=== PATIENT | female | born 2000 | race African-American/Black ===

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

== ENCOUNTER 2022-04-19 16:58 | Emergency (ER) | payer BC, MEDICAID ==
[~2022-04-19] VITALS: Ht 165.1 cm; Wt 119.1 kg
[~2022-04-19 16:58] MED LIST changes: +ALBU8.5H INH; +BENZ0.5T23; +BENZ2TAB5 PO; +BUPR-70; +CHLO25TA38 PO; +CHLOR50TA PO; +D200CAP3 PO; +DIPH50TA4 PO; +DIVA500T94; +FERR325T3 PO; +GUAN1TAB19 PO; +HALO0.5H PO; +HALO0.5T; +HALO5TAB33 PO; +MED NOTE; +METF500T13 PO; +MONT10TA97 PO; +NALT50TA4 PO; +OMEG100011 PO; +PANT40TA29 PO; +PROP10TA56; -PROP1TAB29 PO; +PROP20TA72 PO; +RISP-7; +SENN-111 PO; +TRAZ-252; +TRAZ1TAB10 PO; +WELL100T2; +ZIPR40CA11 PO; +ZOLO50TA PO
[2022-04-19] MEDS ORDERED: AMOX875T2 PO (21:49)
[2022-04-19] MEDS ORDERED: AUGMENTIN 875 MG TAB PO ONE (21:50)
[2022-04-19] MEDS ORDERED: BACITRACIN OINTMENT 30GM TUBE TOP PRN (21:50)
[2022-04-19 21:58] VITALS: BP 130/68
== END 2022-04-19 22:02 | disposition home or self-care (01) ==
LOC: M ED 16:58
DX: S41.151A Open bite of right upper arm, initial encounter (principal); S83.92XA Sprain of unspecified site of left knee, initial encounter; W54.0XXA Bitten by dog, initial encounter; Y92.018 Other place in single-family (private) house as the place of occurrence of the external cause; J45.909 Unspecified asthma, uncomplicated; E11.9 Type 2 diabetes mellitus without complications; F33.9 Major depressive disorder, recurrent, unspecified; F41.9 Anxiety disorder, unspecified; F90.9 Attention-deficit hyperactivity disorder, unspecified type; Z79.899 Other long term (current) drug therapy; Z79.84 Long term (current) use of oral hypoglycemic drugs; F17.200 Nicotine dependence, unspecified, uncomplicated

== ENCOUNTER 2022-05-12 19:45 | Emergency (ER) | payer BC, MEDICAID ==
[~2022-05-12] VITALS: Ht 167.6 cm; Wt 118.2 kg
[~2022-05-12 19:45] MED LIST changes: +AMOX875T2 PO
[2022-05-13 00:43] VITALS: BP 130/64
== END 2022-05-13 02:09 | disposition home or self-care (01) ==
LOC: M ED 19:45
DX: S89.92XA Unspecified injury of left lower leg, initial encounter (principal); W18.39XA Other fall on same level, initial encounter; Y92.018 Other place in single-family (private) house as the place of occurrence of the external cause; Z79.899 Other long term (current) drug therapy; Z79.84 Long term (current) use of oral hypoglycemic drugs

== ENCOUNTER 2022-05-15 00:56 | Emergency (ER) | payer BC, MEDICAID ==
[2022-05-15 01:35] LABS: HEMATOCRIT 37.4 % (36.0-47.0); MEAN CORPUSCULAR HEMOGLOBIN 28.1 pg (27.0-33.0); MEAN CORPUSCULAR HGB CONC 32.1 g/dl (32.0-36.5); MEAN CORPUSCULAR VOLUME 87.6 fl (80.0-96.0); PLATELET COUNT, AUTOMATED 389 10^3/uL (150-450); RED BLOOD COUNT 4.27 10^6/uL (4.00-5.40); WHITE BLOOD COUNT 11.4 10^3/uL (4.0-10.0)
[2022-05-15 01:54] LABS: HCG, SERUM QUALITATIVE NEGATIVE (NEGATIVE)
[2022-05-15] MEDS ORDERED: HALOPERIDOL 5MG/ML VIAL (J1630 PER 1) IM ONE (02:00)
[2022-05-15] MEDS ORDERED: diphenhydrAMINE 50MG/ML VIAL (J1200) IM ONE (02:00)
[2022-05-15] MEDS ORDERED: MIDAZOLAM INJ 2MG/2ML VIAL (J2250 PER 1MG) IM ONE (02:00)
[2022-05-15 02:13] LABS: BLOOD UREA NITROGEN 7 MG/DL (7-18); CREATININE FOR GFR 0.72 MG/DL (0.55-1.30); GLUCOSE, FASTING 117 MG/DL (70-100)
[2022-05-15 02:14] LABS: ACETAMINOPHEN LEVEL < 2.0 UG/ML (10.0-30.0); ALBUMIN 3.5 GM/DL (3.2-5.2); ALT/SGPT 25 U/L (12-78); BILIRUBIN,DIRECT 0.2 MG/DL (0.0-0.2); BILIRUBIN,TOTAL 0.2 MG/DL (0.2-1.0); CALCIUM LEVEL 9.2 MG/DL (8.5-10.1); CARBON DIOXIDE LEVEL 27 MEQ/L (21-32); CHLORIDE LEVEL 108 MEQ/L (98-107); ETHYL ALCOHOL (ETHANOL) < 0.003 % (0.000-0.010); GLOMERULAR FILTRATION RATE > 60.0 (>60); POTASSIUM SERUM 3.7 MEQ/L (3.5-5.1); SALICYLATE LEVEL < 1.7 MG/DL (5.0-30.0); SODIUM LEVEL 141 MEQ/L (136-145); TOTAL PROTEIN 7.5 GM/DL (6.4-8.2)
[2022-05-15] MEDS ORDERED: NS 1,000 ML IV ONE (02:15)
[2022-05-15 02:27] LABS: RSV AMPLIFICATION NEGATIVE (NEGATIVE)
[2022-05-15 02:58] LABS: OSMOLALITY SERUM 289 MOSM/KG (275-295)
[2022-05-15 04:36] LABS: AMPHETAMINES LEVEL URINE NEGATIVE (NEGATIVE); BARBITURATES URINE NEGATIVE (NEGATIVE); BENZODIAZEPINES URINE POSITIVE (NEGATIVE); CANNABINOIDS URINE NEGATIVE (NEGATIVE); COCAINE METABOLITE URINE NEGATIVE (NEGATIVE); METHADONE URINE NEGATIVE (NEGATIVE); OPIATES URINE NEGATIVE (NEGATIVE); PHENCYCLIDINE URINE NEGATIVE (NEGATIVE)
[2022-05-15] MEDS ORDERED: LATU40TA2 PO (18:36)
[2022-05-15] MEDS ORDERED: SERT50TA29 PO (18:36)
[2022-05-15] MEDS ORDERED: HALO5TAB33 PO (18:36)
[2022-05-15] MEDS ORDERED: BENZ-52 PO (18:36)
[2022-05-15] MEDS ORDERED: DIVA500T94 PO (18:36)
[2022-05-15] MEDS ORDERED: LAMO25TA4 PO (18:36)
[2022-05-15] MEDS ORDERED: HOME MED LIST COMPLETE! XX SCH (18:40)
[2022-05-16] MEDS ORDERED: metFORMIN (GLUCOPHAGE) 500MG TAB PO SCH (08:00)
[2022-05-16] MEDS ORDERED: LURASIDONE HCL 40MG TAB (LATUDA) PO SCH (08:00)
[2022-05-16] MEDS ORDERED: OMEGA-3 1000MG CAPSULE PO SCH (09:00)
[2022-05-16] MEDS ORDERED: DIVALPROEX 500 MG TAB PO SCH (09:00)
[2022-05-16] MEDS ORDERED: FERROUS SULFATE 325MG TAB PO SCH (09:00)
[2022-05-16] MEDS ORDERED: BENZTROPINE 2 MG TAB PO SCH (09:00)
[2022-05-16] MEDS ORDERED: MONTELUKAST 10 MG TAB PO SCH (09:00)
[2022-05-16] MEDS ORDERED: PANTOPRAZOLE 40MG TAB (PROTONIX) PO SCH (09:00)
[2022-05-16] MEDS ORDERED: lamoTRIgine 25MG TAB PO SCH (09:00)
[2022-05-16] MEDS ORDERED: SERTRALINE 100 MG TAB PO SCH (09:00)
[2022-05-16 09:08] LABS: VALPROIC ACID (DEPAKOTE) < 3.0 UG/ML (50.0-100.0)
[2022-05-16 14:57] VITALS: BP 139/82
== END 2022-05-16 15:05 | disposition home or self-care (01) ==
LOC: M ED 00:56
DX: Z04.6 Encounter for general psychiatric examination, requested by authority (principal); F32.A Depression, unspecified; Z79.899 Other long term (current) drug therapy
CPT/HCPCS: 51701; 70450; 80048; 80076; 80143; 80164; 80307; 82077; 83930; 84443; 84703; 85027; 87631; 96372; 99285; J1200; J1630; J2250

== ENCOUNTER 2022-05-20 01:43 | Emergency (ER) | payer BC, MEDICAID ==
[~2022-05-20] VITALS: Ht 167.6 cm; Wt 113.6 kg
[~2022-05-20 01:43] MED LIST changes: +BENZ-52 PO; -CHLO25TA38 PO; +CHLO25TA88 PO; +DIVA500T94 PO; +LAMO25TA4 PO; +LATU40TA2 PO; +SERT50TA29 PO
[2022-05-20] MEDS ORDERED: IBUPROFEN 600MG TAB PO ONE (06:55)
[2022-05-20 07:00] VITALS: BP 126/68
== END 2022-05-20 07:32 | disposition home or self-care (01) ==
LOC: M ED 01:43 → EDBD 01:43 → M ED 07:32
DX: S00.83XA Contusion of other part of head, initial encounter (principal); Y04.8XXA Assault by other bodily force, initial encounter; Y07.9 Unspecified perpetrator of maltreatment and neglect; Y92.89 Other specified places as the place of occurrence of the external cause; F32.A Depression, unspecified; Z79.899 Other long term (current) drug therapy

== ENCOUNTER 2022-05-24 01:13 | Emergency (ER) | payer BC, MEDICAID ==
[~2022-05-24] VITALS: Ht 167.6 cm; Wt 119.1 kg
[2022-05-24 01:18] VITALS: BP 129/75
[2022-05-24] MEDS ORDERED: IBUPROFEN 600MG TAB PO ONE (06:50)
[2022-05-24] MEDS ORDERED: NALT50TA4 PO (23:20)
[2022-05-24] MEDS ORDERED: TRAZ-252 PO (23:20)
[2022-05-25] MEDS ORDERED: LATU40TA2 PO (00:50)
[2022-05-25] MEDS ORDERED: BENZ-52 PO (00:50)
[2022-05-25] MEDS ORDERED: SERT50TA29 PO (00:50)
[2022-05-25] MEDS ORDERED: LAMO25TA4 PO (00:50)
[2022-05-25] MEDS ORDERED: PANT40TA29 PO (00:53)
[2022-05-25] MEDS ORDERED: DIVA500T94 PO (00:53)
[2022-05-25] MEDS ORDERED: med rec comment (00:53)
== END 2022-05-24 07:06 | disposition home or self-care (01) ==
LOC: M ED 01:13 → EDBD 01:13 → M ED 07:06
DX: S93.402A Sprain of unspecified ligament of left ankle, initial encounter (principal); X50.0XXA Overexertion from strenuous movement or load, initial encounter; Y92.009 Unspecified place in unspecified non-institutional (private) residence as the place of occurrence of the external cause; J45.909 Unspecified asthma, uncomplicated; Z79.84 Long term (current) use of oral hypoglycemic drugs; Z79.899 Other long term (current) drug therapy

== ENCOUNTER 2022-05-24 22:29 | Inpatient (IN) | payer BC, MEDICAID ==
[~2022-05-24] VITALS: Ht 177.8 cm; Wt 121.8 kg
[2022-05-24] MEDS ORDERED: TRAZ-252 PO (23:20)
[2022-05-24] MEDS ORDERED: NALT50TA4 PO (23:20)
[2022-05-24 23:35] LABS: HEMATOCRIT 38.5 % (36.0-47.0); HEMOGLOBIN 12.4 g/dl (12.0-15.5); MEAN CORPUSCULAR HEMOGLOBIN 27.7 pg (27.0-33.0); MEAN CORPUSCULAR HGB CONC 32.2 g/dl (32.0-36.5); MEAN CORPUSCULAR VOLUME 86.1 fl (80.0-96.0); PLATELET COUNT, AUTOMATED 433 10^3/uL (150-450); RED BLOOD COUNT 4.47 10^6/uL (4.00-5.40); WHITE BLOOD COUNT 9.4 10^3/uL (4.0-10.0)
[2022-05-25 00:19] LABS: RSV AMPLIFICATION NEGATIVE (NEGATIVE)
[2022-05-25 00:25] LABS: AMPHETAMINES LEVEL URINE NEGATIVE (NEGATIVE); BARBITURATES URINE NEGATIVE (NEGATIVE); BENZODIAZEPINES URINE POSITIVE (NEGATIVE); CANNABINOIDS URINE POSITIVE (NEGATIVE); COCAINE METABOLITE URINE NEGATIVE (NEGATIVE); METHADONE URINE NEGATIVE (NEGATIVE); OPIATES URINE NEGATIVE (NEGATIVE); PHENCYCLIDINE URINE NEGATIVE (NEGATIVE)
[2022-05-25 00:28] LABS: HCG, SERUM QUALITATIVE NEGATIVE (NEGATIVE)
[2022-05-25 00:29] LABS: ACETAMINOPHEN LEVEL < 2.0 UG/ML (10.0-30.0); ALBUMIN 3.6 GM/DL (3.2-5.2); ALT/SGPT 23 U/L (12-78); BILIRUBIN,DIRECT < 0.1 MG/DL (0.0-0.2); BILIRUBIN,TOTAL 0.1 MG/DL (0.2-1.0); BLOOD UREA NITROGEN 13 MG/DL (7-18); CARBON DIOXIDE LEVEL 26 MEQ/L (21-32); CHLORIDE LEVEL 110 MEQ/L (98-107); CREATININE FOR GFR 0.95 MG/DL (0.55-1.30); ETHYL ALCOHOL (ETHANOL) < 0.003 % (0.000-0.010); GLOMERULAR FILTRATION RATE > 60.0 (>60); GLUCOSE, FASTING 99 MG/DL (70-100); POTASSIUM SERUM 4.1 MEQ/L (3.5-5.1); SALICYLATE LEVEL < 1.7 MG/DL (5.0-30.0); SODIUM LEVEL 140 MEQ/L (136-145); TOTAL PROTEIN 7.3 GM/DL (6.4-8.2)
[2022-05-25] MEDS ORDERED: LATU40TA2 PO (00:50)
[2022-05-25] MEDS ORDERED: BENZ-52 PO (00:50)
[2022-05-25] MEDS ORDERED: LAMO25TA4 PO (00:50)
[2022-05-25] MEDS ORDERED: SERT50TA29 PO (00:50)
[2022-05-25] MEDS ORDERED: med rec comment (00:53)
[2022-05-25] MEDS ORDERED: PANT40TA29 PO (00:53)
[2022-05-25] MEDS ORDERED: DIVA500T94 PO (00:53)
[2022-05-25] MEDS ORDERED: HOME MED LIST COMPLETE! XX SCH (00:55)
[2022-05-25] MEDS ORDERED: ONDANSETRON 4MG ORAL DISINTEGRATING TAB PO ONE (21:30)
[2022-05-26] MEDS ORDERED: SERTRALINE HCL 50 MG TAB PO SCH (09:00)
[2022-05-26] MEDS: lamoTRIgine 25MG TAB PO SCH ×2 (12:04→20:15)
[2022-05-26] MEDS: metFORMIN (GLUCOPHAGE) 500MG TAB PO SCH ×2 (12:05→20:14)
[2022-05-26] MEDS: BENZTROPINE 1 MG TAB PO SCH (12:05)
[2022-05-26] MEDS ORDERED: NICOTINE 14 MG/24 HR TRANSDERMAL TD ONE (19:50)
[2022-05-27] MEDS ORDERED: SERTRALINE HCL 50 MG TAB PO SCH (09:00)
[2022-05-27] MEDS: BENZTROPINE 1 MG TAB PO SCH (10:08)
[2022-05-27] MEDS: metFORMIN (GLUCOPHAGE) 500MG TAB PO SCH ×2 (10:08→21:46)
[2022-05-27] MEDS: lamoTRIgine 25MG TAB PO SCH ×2 (10:09→21:46)
[2022-05-27] MEDS ORDERED: CEPACOL LOZENGE PO PRN (10:40)
[2022-05-27] MEDS ORDERED: NICOTINE 21MG/24HR 1 EA TRANSDERMAL TD ONE (16:45)
[2022-05-27] MEDS ORDERED: MOM 30ML SUSPENSION UDC PO PRN (18:15)
[2022-05-27] MEDS ORDERED: IBUPROFEN 400MG TAB PO PRN (18:15)
[2022-05-27 21:17] VITALS: BP 168/73
[2022-05-27] MEDS: DIVALPROEX 500 MG TAB PO SCH (21:47)
[2022-05-27] MEDS: NICOTINE POLACRILEX 2 MG GUM PO PRN (21:48)
[2022-05-27] MEDS: traZODone 50 MG TAB PO PRN (22:51)
[2022-05-28] MEDS: lamoTRIgine 25MG TAB PO SCH ×2 (09:00→20:32)
[2022-05-28] MEDS: SERTRALINE HCL 50 MG TAB PO SCH (09:00)
[2022-05-28] MEDS: MAALOX 30 ML SUSP *UDC PO PRN ×2 (09:00→15:07)
[2022-05-28] MEDS: DIVALPROEX 500 MG TAB PO SCH (09:01)
[2022-05-28] MEDS: BENZTROPINE 1 MG TAB PO SCH (09:01)
[2022-05-28] MEDS: PANTOPRAZOLE 40MG TAB (PROTONIX) PO SCH (09:01)
[2022-05-28] MEDS: metFORMIN (GLUCOPHAGE) 500MG TAB PO SCH ×2 (09:01→20:32)
[2022-05-28] MEDS: LURASIDONE HCL 40MG TAB (LATUDA) PO SCH (09:01)
[2022-05-28] MEDS: NICOTINE POLACRILEX 2 MG GUM PO PRN ×5 (09:07→22:35)
[2022-05-28 19:15] VITALS: BP 130/72
[2022-05-28] MEDS: traZODone 50 MG TAB PO PRN (20:32)
[2022-05-28] MEDS: ALBUTEROL 90 MCG/ACT 8GM HFA INHALER INH PRN (22:59)
[2022-05-29] MEDS: NICOTINE POLACRILEX 2 MG GUM PO PRN ×4 (08:30→23:05)
[2022-05-29] MEDS: LURASIDONE HCL 40MG TAB (LATUDA) PO SCH (08:31)
[2022-05-29] MEDS: SERTRALINE HCL 50 MG TAB PO SCH (08:31)
[2022-05-29] MEDS: lamoTRIgine 25MG TAB PO SCH ×2 (08:31→20:19)
[2022-05-29] MEDS: BENZTROPINE 1 MG TAB PO SCH (08:31)
[2022-05-29] MEDS: PANTOPRAZOLE 40MG TAB (PROTONIX) PO SCH (08:31)
[2022-05-29] MEDS: metFORMIN (GLUCOPHAGE) 500MG TAB PO SCH ×2 (08:31→20:19)
[2022-05-29] MEDS: MAALOX 30 ML SUSP *UDC PO PRN ×2 (08:53→19:20)
[2022-05-29 09:23] VITALS: BP 130/72
[2022-05-29] MEDS ORDERED: LORazepam 2 MG TAB PO STA (10:16)
[2022-05-29] MEDS: traZODone 50 MG TAB PO PRN (20:19)
[2022-05-29] MEDS: ALBUTEROL 90 MCG/ACT 8GM HFA INHALER INH PRN (20:32)
[2022-05-30] MEDS: lamoTRIgine 25MG TAB PO SCH ×2 (09:39→20:16)
[2022-05-30] MEDS: SERTRALINE HCL 50 MG TAB PO SCH (09:40)
[2022-05-30] MEDS: BENZTROPINE 1 MG TAB PO SCH (09:40)
[2022-05-30] MEDS: PANTOPRAZOLE 40MG TAB (PROTONIX) PO SCH (09:40)
[2022-05-30] MEDS: LURASIDONE HCL 40MG TAB (LATUDA) PO SCH (09:40)
[2022-05-30] MEDS: metFORMIN (GLUCOPHAGE) 500MG TAB PO SCH ×2 (09:40→20:14)
[2022-05-30] MEDS: NICOTINE POLACRILEX 2 MG GUM PO PRN ×4 (09:40→21:18)
[2022-05-30] MEDS ORDERED: ONDANSETRON 4MG ORAL DISINTEGRATING TAB PO ONE (17:00)
[2022-05-30 18:12] VITALS: BP 156/94
[2022-05-30] MEDS: traZODone 50 MG TAB PO PRN (22:03)
[2022-05-31] MEDS: NICOTINE POLACRILEX 2 MG GUM PO PRN ×6 (06:08→21:24)
[2022-05-31 06:45] VITALS: BP 134/82
[2022-05-31] MEDS: SERTRALINE HCL 50 MG TAB PO SCH (08:21)
[2022-05-31] MEDS: LURASIDONE HCL 40MG TAB (LATUDA) PO SCH (08:21)
[2022-05-31] MEDS: metFORMIN (GLUCOPHAGE) 500MG TAB PO SCH ×2 (08:21→20:01)
[2022-05-31] MEDS: PANTOPRAZOLE 40MG TAB (PROTONIX) PO SCH (08:21)
[2022-05-31] MEDS: lamoTRIgine 25MG TAB PO SCH ×2 (08:21→20:02)
[2022-05-31] MEDS: BENZTROPINE 1 MG TAB PO SCH (08:21)
[2022-05-31 18:08] VITALS: BP 150/84
[2022-05-31] MEDS: traZODone 50 MG TAB PO PRN (23:20)
[2022-06-01] MEDS: NICOTINE POLACRILEX 2 MG GUM PO PRN ×5 (05:02→22:05)
[2022-06-01 06:42] VITALS: BP 132/90
[2022-06-01] MEDS: LURASIDONE HCL 40MG TAB (LATUDA) PO SCH (08:49)
[2022-06-01] MEDS: BENZTROPINE 1 MG TAB PO SCH (08:49)
[2022-06-01] MEDS: metFORMIN (GLUCOPHAGE) 500MG TAB PO SCH ×2 (08:49→20:11)
[2022-06-01] MEDS: SERTRALINE HCL 50 MG TAB PO SCH (08:49)
[2022-06-01] MEDS: lamoTRIgine 25MG TAB PO SCH ×2 (08:49→20:11)
[2022-06-01] MEDS: PANTOPRAZOLE 40MG TAB (PROTONIX) PO SCH (08:49)
[2022-06-01] MEDS: traZODone 50 MG TAB PO PRN (22:04)
[2022-06-01] MEDS ORDERED: LORazepam 1 MG TAB PO ONE (22:55)
[2022-06-01] MEDS ORDERED: OLANZapine ORAL DISINTEGRATING TAB 5MG PO STA (22:55)
[2022-06-01] MEDS ORDERED: OLANZapine ORAL DISINTEGRATING TAB 5MG PO ONE (23:05)
[2022-06-02] MEDS: BENZTROPINE 1 MG TAB PO SCH (07:47)
[2022-06-02] MEDS: metFORMIN (GLUCOPHAGE) 500MG TAB PO SCH (07:47)
[2022-06-02] MEDS: SERTRALINE HCL 50 MG TAB PO SCH (07:47)
[2022-06-02] MEDS: lamoTRIgine 25MG TAB PO SCH (07:48)
[2022-06-02] MEDS: PANTOPRAZOLE 40MG TAB (PROTONIX) PO SCH (07:48)
[2022-06-02] MEDS ORDERED: LAMI25TA PO (07:59)
[2022-06-02] MEDS ORDERED: PANT40TA29 PO (07:59)
[2022-06-02] MEDS ORDERED: LATU40TA2 PO (07:59)
[2022-06-02] MEDS ORDERED: SERT50TA29 PO (07:59)
[2022-06-02] MEDS ORDERED: METF500T13 PO (07:59)
[2022-06-02] MEDS ORDERED: TRAZ-252 PO (07:59)
[2022-06-02] MEDS: NICOTINE POLACRILEX 2 MG GUM PO PRN (08:09)
[2022-06-02] MEDS: LURASIDONE HCL 40MG TAB (LATUDA) PO SCH (09:00)
== END 2022-06-02 09:05 | disposition home or self-care (01) | DRG 776 ==
LOC: EDBD 22:29 → M ED 22:29 → M ED INP 05-27 18:15 → M PSY 05-27 21:26
PROVIDERS: ADMIT Psychiatry & Neurology Psychiatry; ATTEND Psychiatry & Neurology Psychiatry
DX: F12.988 Cannabis use, unspecified with other cannabis-induced disorder (principal); Z91.52 Personal history of nonsuicidal self-harm; Z91.51 Personal history of suicidal behavior; R45.851 Suicidal ideations; Z81.8 Family history of other mental and behavioral disorders; F17.210 Nicotine dependence, cigarettes, uncomplicated; F60.89 Other specific personality disorders; Z20.822 Contact with and (suspected) exposure to COVID-19; Z90.49 Acquired absence of other specified parts of digestive tract; E66.9 Obesity, unspecified

== ENCOUNTER 2022-06-06 23:38 | Emergency (ER) | payer BC, MEDICAID ==
[~2022-06-06] VITALS: Ht 167.6 cm; Wt 123.6 kg
[~2022-06-06 23:38] MED LIST changes: +LAMI25TA PO; +TRAZ-252 PO; +med rec comment
[2022-06-06 23:44] VITALS: BP 146/64
== END 2022-06-07 02:41 | disposition left against medical advice (07) ==
LOC: EDBD 23:38 → EDSEX 23:38 → M ED 23:38
DX: Z53.29 Procedure and treatment not carried out because of patient's decision for other reasons (principal)

== ENCOUNTER 2022-06-08 21:49 | Emergency (ER) | payer BC, MEDICAID ==
[~2022-06-08] VITALS: Ht 167.6 cm; Wt 118.2 kg
[2022-06-09 00:28] LABS: HEMATOCRIT 38.9 % (36.0-47.0); HEMOGLOBIN 12.4 g/dl (12.0-15.5); MEAN CORPUSCULAR HEMOGLOBIN 27.2 pg (27.0-33.0); MEAN CORPUSCULAR HGB CONC 31.9 g/dl (32.0-36.5); MEAN CORPUSCULAR VOLUME 85.3 fl (80.0-96.0); PLATELET COUNT, AUTOMATED 381 10^3/uL (150-450); RED BLOOD COUNT 4.56 10^6/uL (4.00-5.40); WHITE BLOOD COUNT 10.6 10^3/uL (4.0-10.0)
[2022-06-09 01:01] LABS: HCG, SERUM QUALITATIVE NEGATIVE (NEGATIVE)
[2022-06-09 01:06] LABS: AMPHETAMINES LEVEL URINE NEGATIVE (NEGATIVE); BARBITURATES URINE NEGATIVE (NEGATIVE); BENZODIAZEPINES URINE NEGATIVE (NEGATIVE); CANNABINOIDS URINE NEGATIVE (NEGATIVE); COCAINE METABOLITE URINE NEGATIVE (NEGATIVE); METHADONE URINE NEGATIVE (NEGATIVE); OPIATES URINE NEGATIVE (NEGATIVE); PHENCYCLIDINE URINE NEGATIVE (NEGATIVE)
[2022-06-09 01:15] LABS: ACETAMINOPHEN LEVEL < 2.0 UG/ML (10.0-30.0); ALBUMIN 3.4 GM/DL (3.2-5.2); ALT/SGPT 20 U/L (12-78); BILIRUBIN,DIRECT < 0.1 MG/DL (0.0-0.2); BILIRUBIN,TOTAL 0.2 MG/DL (0.2-1.0); BLOOD UREA NITROGEN 11 MG/DL (7-18); CALCIUM LEVEL 8.9 MG/DL (8.5-10.1); CARBON DIOXIDE LEVEL 26 MEQ/L (21-32); CHLORIDE LEVEL 108 MEQ/L (98-107); ETHYL ALCOHOL (ETHANOL) < 0.003 % (0.000-0.010); GLOMERULAR FILTRATION RATE > 60.0 (>60); GLUCOSE, FASTING 95 MG/DL (70-100); POTASSIUM SERUM 4.3 MEQ/L (3.5-5.1); SALICYLATE LEVEL < 1.7 MG/DL (5.0-30.0); SODIUM LEVEL 139 MEQ/L (136-145); TOTAL PROTEIN 6.9 GM/DL (6.4-8.2)
[2022-06-09] MEDS ORDERED: METF-839 PO (02:02)
[2022-06-09] MEDS ORDERED: MAALSUS19 PO (02:02)
[2022-06-09] MEDS ORDERED: TRAZ-252 PO (02:02)
[2022-06-09] MEDS ORDERED: LATU40TA2 PO (02:02)
[2022-06-09] MEDS ORDERED: PANT-23 PO (02:02)
[2022-06-09] MEDS ORDERED: SERT50TA29 PO (02:02)
[2022-06-09] MEDS ORDERED: HALO5TAB33 PO (02:02)
[2022-06-09] MEDS ORDERED: HOME MED LIST COMPLETE! XX SCH (02:05)
[2022-06-09] MEDS ORDERED: PANTOPRAZOLE 40MG TAB (PROTONIX) PO ONE (07:35)
[2022-06-09] MEDS ORDERED: SERTRALINE HCL 50 MG TAB PO ONE (07:35)
[2022-06-09] MEDS ORDERED: metFORMIN (GLUCOPHAGE) 500MG TAB PO ONE (07:35)
[2022-06-09] MEDS ORDERED: BENZTROPINE 1 MG TAB PO ONE (07:35)
[2022-06-09] MEDS ORDERED: LURASIDONE HCL 40MG TAB (LATUDA) PO SCH (08:00)
[2022-06-09 09:21] VITALS: BP 126/62
== END 2022-06-09 09:32 | disposition home or self-care (01) ==
LOC: M ED 21:49
DX: F43.20 Adjustment disorder, unspecified (principal); F32.A Depression, unspecified; Z79.899 Other long term (current) drug therapy; F17.200 Nicotine dependence, unspecified, uncomplicated

== ENCOUNTER 2022-06-15 01:58 | Emergency (ER) | payer BC, MEDICAID ==
[~2022-06-15] VITALS: Ht 167.6 cm; Wt 122.9 kg
[~2022-06-15 01:58] MED LIST changes: +MAALSUS19 PO; +METF-839 PO; +PANT-23 PO
[2022-06-15 06:51] VITALS: BP 132/79
== END 2022-06-15 07:50 | disposition home or self-care (01) ==
LOC: M ED 01:58
DX: S80.02XA Contusion of left knee, initial encounter (principal); W22.8XXA Striking against or struck by other objects, initial encounter; Y92.018 Other place in single-family (private) house as the place of occurrence of the external cause; J45.909 Unspecified asthma, uncomplicated; F20.9 Schizophrenia, unspecified; F90.9 Attention-deficit hyperactivity disorder, unspecified type; Z79.899 Other long term (current) drug therapy; F17.200 Nicotine dependence, unspecified, uncomplicated

== ENCOUNTER 2022-06-17 11:32 | Emergency (ER) | payer BC, MEDICAID ==
[~2022-06-17] VITALS: Ht 167.6 cm; Wt 122.8 kg
[2022-06-17 11:32] VITALS: BP 130/50
== END 2022-06-17 14:13 | disposition home or self-care (01) ==
LOC: M ED 11:32
DX: S69.92XA Unspecified injury of left wrist, hand and finger(s), initial encounter (principal); Y04.0XXA Assault by unarmed brawl or fight, initial encounter; Y92.89 Other specified places as the place of occurrence of the external cause; E11.9 Type 2 diabetes mellitus without complications; Z79.899 Other long term (current) drug therapy; Z79.84 Long term (current) use of oral hypoglycemic drugs

== ENCOUNTER 2022-06-23 00:50 | Emergency (ER) | payer BC, MEDICAID ==
[~2022-06-23] VITALS: Ht 167.6 cm; Wt 118.2 kg
[2022-06-23 01:38] LABS: HEMATOCRIT 38.3 % (36.0-47.0); HEMOGLOBIN 12.3 g/dl (12.0-15.5); MEAN CORPUSCULAR HGB CONC 32.1 g/dl (32.0-36.5); MEAN CORPUSCULAR VOLUME 84.2 fl (80.0-96.0); PLATELET COUNT, AUTOMATED 364 10^3/uL (150-450); RED BLOOD COUNT 4.55 10^6/uL (4.00-5.40); WHITE BLOOD COUNT 8.8 10^3/uL (4.0-10.0)
[2022-06-23] MEDS ORDERED: HOME MED LIST COMPLETE! XX SCH (02:05)
[2022-06-23 02:13] LABS: HCG, SERUM QUALITATIVE NEGATIVE (NEGATIVE)
[2022-06-23 02:23] LABS: RSV AMPLIFICATION NEGATIVE (NEGATIVE)
[2022-06-23 02:35] LABS: ACETAMINOPHEN LEVEL < 2.0 UG/ML (10.0-30.0); ALBUMIN 3.3 GM/DL (3.2-5.2); ALT/SGPT 22 U/L (12-78); BILIRUBIN,DIRECT 0.1 MG/DL (0.0-0.2); BILIRUBIN,TOTAL 0.1 MG/DL (0.2-1.0); BLOOD UREA NITROGEN 9 MG/DL (7-18); CALCIUM LEVEL 8.6 MG/DL (8.5-10.1); CARBON DIOXIDE LEVEL 25 MEQ/L (21-32); CHLORIDE LEVEL 110 MEQ/L (98-107); CREATININE FOR GFR 0.72 MG/DL (0.55-1.30); ETHYL ALCOHOL (ETHANOL) 0.003 % (0.000-0.010); GLOMERULAR FILTRATION RATE > 60.0 (>60); GLUCOSE, FASTING 96 MG/DL (70-100); POTASSIUM SERUM 3.8 MEQ/L (3.5-5.1); SALICYLATE LEVEL < 1.7 MG/DL (5.0-30.0); SODIUM LEVEL 141 MEQ/L (136-145); TOTAL PROTEIN 6.7 GM/DL (6.4-8.2)
[2022-06-23 03:53] LABS: AMPHETAMINES LEVEL URINE NEGATIVE (NEGATIVE); BARBITURATES URINE NEGATIVE (NEGATIVE); BENZODIAZEPINES URINE NEGATIVE (NEGATIVE); CANNABINOIDS URINE NEGATIVE (NEGATIVE); COCAINE METABOLITE URINE NEGATIVE (NEGATIVE); METHADONE URINE NEGATIVE (NEGATIVE); OPIATES URINE NEGATIVE (NEGATIVE); PHENCYCLIDINE URINE NEGATIVE (NEGATIVE)
[2022-06-23 05:04] VITALS: BP 144/68
== END 2022-06-23 05:20 | disposition home or self-care (01) ==
LOC: M ED 00:50
DX: F43.0 Acute stress reaction (principal); F32.A Depression, unspecified; Z90.49 Acquired absence of other specified parts of digestive tract; Z79.84 Long term (current) use of oral hypoglycemic drugs; Z79.899 Other long term (current) drug therapy

== ENCOUNTER 2022-06-27 00:25 | Emergency (ER) | payer BC, MEDICAID ==
[~2022-06-27] VITALS: Ht 162.6 cm; Wt 81.0 kg
[2022-06-27 01:26] LABS: HEMATOCRIT 37.5 % (36.0-47.0); HEMOGLOBIN 12.1 g/dl (12.0-15.5); MEAN CORPUSCULAR HEMOGLOBIN 26.9 pg (27.0-33.0); MEAN CORPUSCULAR HGB CONC 32.3 g/dl (32.0-36.5); MEAN CORPUSCULAR VOLUME 83.5 fl (80.0-96.0); PLATELET COUNT, AUTOMATED 375 10^3/uL (150-450); RED BLOOD COUNT 4.49 10^6/uL (4.00-5.40); WHITE BLOOD COUNT 9.4 10^3/uL (4.0-10.0)
[2022-06-27 01:50] LABS: AMPHETAMINES LEVEL URINE NEGATIVE (NEGATIVE); BARBITURATES URINE NEGATIVE (NEGATIVE); BENZODIAZEPINES URINE NEGATIVE (NEGATIVE); CANNABINOIDS URINE NEGATIVE (NEGATIVE); COCAINE METABOLITE URINE NEGATIVE (NEGATIVE); METHADONE URINE NEGATIVE (NEGATIVE); OPIATES URINE NEGATIVE (NEGATIVE); PHENCYCLIDINE URINE NEGATIVE (NEGATIVE)
[2022-06-27 01:56] LABS: ACETAMINOPHEN LEVEL < 2.0 UG/ML (10.0-30.0); ALBUMIN 3.6 GM/DL (3.2-5.2); ALT/SGPT 27 U/L (12-78); BILIRUBIN,DIRECT < 0.1 MG/DL (0.0-0.2); BILIRUBIN,TOTAL 0.2 MG/DL (0.2-1.0); BLOOD UREA NITROGEN 8 MG/DL (7-18); CALCIUM LEVEL 8.9 MG/DL (8.5-10.1); CARBON DIOXIDE LEVEL 26 MEQ/L (21-32); CHLORIDE LEVEL 105 MEQ/L (98-107); CREATININE FOR GFR 0.69 MG/DL (0.55-1.30); ETHYL ALCOHOL (ETHANOL) < 0.003 % (0.000-0.010); GLOMERULAR FILTRATION RATE > 60.0 (>60); GLUCOSE, FASTING 93 MG/DL (70-100); POTASSIUM SERUM 3.4 MEQ/L (3.5-5.1); SALICYLATE LEVEL < 1.7 MG/DL (5.0-30.0); SODIUM LEVEL 139 MEQ/L (136-145)
[2022-06-27 03:38] VITALS: BP 117/54
== END 2022-06-27 04:25 | disposition home or self-care (01) ==
LOC: M ED 00:25 → EDUNIT# 00:25 → EDBD 00:25 → M ED 04:25
DX: F43.20 Adjustment disorder, unspecified (principal); E11.9 Type 2 diabetes mellitus without complications; F32.A Depression, unspecified; K21.9 Gastro-esophageal reflux disease without esophagitis; Z79.899 Other long term (current) drug therapy; Z79.84 Long term (current) use of oral hypoglycemic drugs

== ENCOUNTER 2022-06-27 21:39 | Inpatient (IN) | payer BC, MEDICAID ==
[~2022-06-27] VITALS: Ht 167.6 cm; Wt 114.0 kg
[2022-06-27] MEDS ORDERED: NS 1,000 ML IV ONE (21:45)
[2022-06-27 22:22] LABS: BASO % 0.3 % (0.0-1.0); EOS # 0.3 10^3/uL (0.0-0.5); EOS % 2.8 % (0.0-3.0); HEMATOCRIT 36.5 % (36.0-47.0); HEMOGLOBIN 11.6 g/dl (12.0-15.5); LYMPH # 3.7 10^3/uL (1.5-5.0); LYMPH % 41.3 % (24.0-44.0); MEAN CORPUSCULAR HEMOGLOBIN 26.9 pg (27.0-33.0); MEAN CORPUSCULAR HGB CONC 31.8 g/dl (32.0-36.5); MEAN CORPUSCULAR VOLUME 84.5 fl (80.0-96.0); MONO # 0.5 10^3/uL (0.0-0.8); MONO % 5.4 % (2.0-8.0); NEUTROPHILS # 4.5 10^3/uL (1.5-8.5); PLATELET COUNT, AUTOMATED 335 10^3/uL (150-450); RED BLOOD COUNT 4.32 10^6/uL (4.00-5.40)
[2022-06-27 22:44] LABS: HCG, SERUM QUALITATIVE NEGATIVE (NEGATIVE)
[2022-06-27 22:49] LABS: AMPHETAMINES LEVEL URINE NEGATIVE (NEGATIVE); BARBITURATES URINE NEGATIVE (NEGATIVE); BENZODIAZEPINES URINE NEGATIVE (NEGATIVE); CANNABINOIDS URINE NEGATIVE (NEGATIVE); COCAINE METABOLITE URINE NEGATIVE (NEGATIVE); METHADONE URINE NEGATIVE (NEGATIVE); OPIATES URINE NEGATIVE (NEGATIVE); PHENCYCLIDINE URINE NEGATIVE (NEGATIVE)
[2022-06-27 23:01] LABS: ACETAMINOPHEN LEVEL < 2.0 UG/ML (10.0-30.0); ALBUMIN 3.3 GM/DL (3.2-5.2); ALT/SGPT 21 U/L (12-78); BILIRUBIN,DIRECT < 0.1 MG/DL (0.0-0.2); BILIRUBIN,TOTAL 0.2 MG/DL (0.2-1.0); BLOOD UREA NITROGEN 13 MG/DL (7-18); CALCIUM LEVEL 8.5 MG/DL (8.5-10.1); CARBON DIOXIDE LEVEL 26 MEQ/L (21-32); CHLORIDE LEVEL 108 MEQ/L (98-107); CREATININE FOR GFR 0.78 MG/DL (0.55-1.30); ETHYL ALCOHOL (ETHANOL) 0.004 % (0.000-0.010); GLOMERULAR FILTRATION RATE > 60.0 (>60); GLUCOSE, FASTING 87 MG/DL (70-100); POTASSIUM SERUM 3.8 MEQ/L (3.5-5.1); SALICYLATE LEVEL < 1.7 MG/DL (5.0-30.0); SODIUM LEVEL 141 MEQ/L (136-145); TOTAL PROTEIN 6.4 GM/DL (6.4-8.2)
[2022-06-28] MEDS ORDERED: HOME MED LIST COMPLETE! XX SCH (04:45)
[2022-06-28] MEDS ORDERED: OLANZapine ORAL DISINTEGRATING TAB 5MG PO ONE (15:15)
[2022-06-28] MEDS ORDERED: LORazepam 1 MG TAB PO ONE (15:15)
[2022-06-29] MEDS ORDERED: OLANZapine ORAL DISINTEGRATING TAB 5MG PO ONE (09:35)
[2022-06-29] MEDS ORDERED: LORazepam 2 MG TAB PO ONE (09:35)
[2022-06-29] MEDS ORDERED: PANTOPRAZOLE 40MG TAB (PROTONIX) PO ONE (10:00)
[2022-06-29] MEDS ORDERED: SERTRALINE HCL 50 MG TAB PO ONE (10:00)
[2022-06-29] MEDS ORDERED: BENZTROPINE 2 MG TAB PO ONE (10:00)
[2022-06-29] MEDS ORDERED: metFORMIN (GLUCOPHAGE) 500MG TAB PO ONE (10:00)
[2022-06-29] MEDS ORDERED: metFORMIN (GLUCOPHAGE) 500MG TAB PO SCH (10:15)
[2022-06-29] MEDS: metFORMIN (GLUCOPHAGE) 500MG TAB PO SCH (17:50)
[2022-06-29] MEDS ORDERED: MIDAZOLAM INJ 2MG/2ML VIAL (J2250 PER 1MG) IM ONE (19:45)
[2022-06-29] MEDS ORDERED: diphenhydrAMINE 50MG/ML VIAL (J1200) IM ONE (19:45)
[2022-06-29] MEDS ORDERED: HALOPERIDOL 5MG/ML VIAL (J1630 PER 1) IM ONE (19:45)
[2022-06-30] MEDS: metFORMIN (GLUCOPHAGE) 500MG TAB PO SCH ×2 (08:00→17:45)
[2022-06-30] MEDS: BENZTROPINE 2 MG TAB PO SCH ×2 (08:27→09:00)
[2022-06-30] MEDS: PANTOPRAZOLE 40MG TAB (PROTONIX) PO SCH ×2 (08:27→09:00)
[2022-06-30] MEDS: SERTRALINE HCL 50 MG TAB PO SCH ×2 (08:27→09:24)
[2022-06-30] MEDS ORDERED: metFORMIN (GLUCOPHAGE) 500MG TAB PO SCH (09:00)
[2022-06-30] MEDS ORDERED: OLANZapine ORAL DISINTEGRATING TAB 5MG PO ONE (21:40)
[2022-07-01] MEDS ORDERED: NICOTINE 7 MG/24 HR TRANSDERMAL TD ONE
[2022-07-01] MEDS: LURASIDONE HCL 40MG TAB (LATUDA) PO SCH (08:00)
[2022-07-01] MEDS: metFORMIN (GLUCOPHAGE) 500MG TAB PO SCH ×2 (08:15→18:00)
[2022-07-01] MEDS: BENZTROPINE 2 MG TAB PO SCH (08:44)
[2022-07-01] MEDS: PANTOPRAZOLE 40MG TAB (PROTONIX) PO SCH (08:44)
[2022-07-01] MEDS: SERTRALINE HCL 50 MG TAB PO SCH (08:48)
[2022-07-01] MEDS ORDERED: NICOTINE 21MG/24HR 1 EA TRANSDERMAL TD SCH (09:00)
[2022-07-01 12:33] LABS: RSV AMPLIFICATION NEGATIVE (NEGATIVE)
[2022-07-01] MEDS ORDERED: IBUPROFEN 400MG TAB PO PRN (14:00)
[2022-07-01] MEDS ORDERED: ACETAMINOPHEN TAB 650MG DOSE (2X325MG) PO PRN (14:00)
[2022-07-01] MEDS ORDERED: traZODone 50 MG TAB PO PRN (14:00)
[2022-07-01 16:05] VITALS: BP 135/75
[2022-07-01] MEDS: NICOTINE POLACRILEX 2 MG GUM PO PRN ×2 (19:38→23:45)
[2022-07-01] MEDS: MAALOX 30 ML SUSP *UDC PO PRN (22:34)
[2022-07-02] MEDS: diphenhydrAMINE 25MG CAP PO PRN ×3 (00:16→13:42)
[2022-07-02] MEDS: traZODone 50 MG TAB PO PRN ×2 (00:16→22:58)
[2022-07-02 06:18] VITALS: BP 128/86
[2022-07-02] MEDS: NICOTINE POLACRILEX 2 MG GUM PO PRN ×4 (06:23→21:41)
[2022-07-02] MEDS ORDERED: NICOTINE 21MG/24HR 1 EA TRANSDERMAL TD SCH (09:00)
[2022-07-02] MEDS: PANTOPRAZOLE 40MG TAB (PROTONIX) PO SCH (09:17)
[2022-07-02] MEDS: LURASIDONE HCL 40MG TAB (LATUDA) PO SCH (09:17)
[2022-07-02] MEDS: metFORMIN (GLUCOPHAGE) 500MG TAB PO SCH ×2 (09:17→17:29)
[2022-07-02] MEDS: BENZTROPINE 1 MG TAB PO SCH (09:17)
[2022-07-02] MEDS: SERTRALINE HCL 50 MG TAB PO SCH (09:17)
[2022-07-02] MEDS ORDERED: LORazepam 1 MG TAB PO ONE (14:10)
[2022-07-02] MEDS ORDERED: LORazepam 2 MG TAB PO STA (17:02)
[2022-07-02] MEDS ORDERED: OLANZapine ORAL DISINTEGRATING TAB 5MG PO STA (17:02)
[2022-07-02 18:24] VITALS: BP 135/73
[2022-07-02] MEDS ORDERED: chlorproMAZINE INJ 50MG/2ML AMP (J3230) IM STA (19:08)
[2022-07-02] MEDS ORDERED: LORazepam 2 MG/ML VIAL IM STA (19:08)
[2022-07-02 19:30] VITALS: BP 155/77
[2022-07-02 19:45] VITALS: BP 141/79
[2022-07-02 20:30] VITALS: BP 173/86
[2022-07-02 21:00] VITALS: BP 152/80
[2022-07-03 06:29] VITALS: BP 112/55
[2022-07-03] MEDS: PANTOPRAZOLE 40MG TAB (PROTONIX) PO SCH ×2 (11:03→11:48)
[2022-07-03] MEDS: SERTRALINE HCL 50 MG TAB PO SCH ×2 (11:03→11:49)
[2022-07-03] MEDS: LURASIDONE HCL 40MG TAB (LATUDA) PO SCH ×2 (11:04→11:48)
[2022-07-03] MEDS: BENZTROPINE 1 MG TAB PO SCH ×2 (11:04→11:48)
[2022-07-03] MEDS: metFORMIN (GLUCOPHAGE) 500MG TAB PO SCH ×3 (11:04→19:15)
[2022-07-03] MEDS: LORazepam 1 MG TAB PO PRN ×2 (12:27→23:08)
[2022-07-03] MEDS: NICOTINE POLACRILEX 2 MG GUM PO PRN ×2 (19:46→23:47)
[2022-07-04] MEDS: traZODone 50 MG TAB PO PRN (00:03)
[2022-07-04] MEDS: diphenhydrAMINE 25MG CAP PO PRN ×2 (00:03→21:53)
[2022-07-04] MEDS: MAALOX 30 ML SUSP *UDC PO PRN ×2 (01:22→21:53)
[2022-07-04] MEDS: MOM 30ML SUSPENSION UDC PO PRN ×2 (02:46→21:59)
[2022-07-04] MEDS: LURASIDONE HCL 40MG TAB (LATUDA) PO SCH (08:37)
[2022-07-04] MEDS: SERTRALINE HCL 50 MG TAB PO SCH (08:37)
[2022-07-04] MEDS: BENZTROPINE 1 MG TAB PO SCH (08:37)
[2022-07-04] MEDS: NICOTINE POLACRILEX 2 MG GUM PO PRN ×4 (08:37→21:29)
[2022-07-04] MEDS: metFORMIN (GLUCOPHAGE) 500MG TAB PO SCH ×2 (08:37→17:13)
[2022-07-04] MEDS: PANTOPRAZOLE 40MG TAB (PROTONIX) PO SCH (08:37)
[2022-07-04] MEDS: LORazepam 1 MG TAB PO PRN (21:53)
[2022-07-05] MEDS: LURASIDONE HCL 40MG TAB (LATUDA) PO SCH (08:00)
[2022-07-05] MEDS: metFORMIN (GLUCOPHAGE) 500MG TAB PO SCH ×2 (08:00→18:00)
[2022-07-05] MEDS: BENZTROPINE 1 MG TAB PO SCH (09:00)
[2022-07-05] MEDS: SERTRALINE HCL 50 MG TAB PO SCH (09:00)
[2022-07-05] MEDS: PANTOPRAZOLE 40MG TAB (PROTONIX) PO SCH (09:00)
[2022-07-05] MEDS: NICOTINE POLACRILEX 2 MG GUM PO PRN ×3 (13:32→22:46)
[2022-07-05] MEDS: LORazepam 1 MG TAB PO PRN ×2 (15:53→23:23)
[2022-07-05 16:14] VITALS: BP 128/63
[2022-07-05] MEDS: diphenhydrAMINE 25MG CAP PO PRN (16:38)
[2022-07-05] MEDS: traZODone 50 MG TAB PO PRN (19:54)
[2022-07-05] MEDS ORDERED: LORazepam 1 MG TAB PO STA (21:08)
[2022-07-06 00:20] VITALS: BP 127/73
[2022-07-06] MEDS: NORCO, ANEXSIA 5/325MG TABLET (HYDROcodone/ACETAMINOPHEN) PO ONE ×2 (01:15→01:17)
[2022-07-06] MEDS ORDERED: IBUPROFEN 800 MG TAB PO SCH (08:00)
[2022-07-06] MEDS: LURASIDONE HCL 40MG TAB (LATUDA) PO SCH (08:19)
[2022-07-06] MEDS: SERTRALINE HCL 50 MG TAB PO SCH (08:20)
[2022-07-06] MEDS: BENZTROPINE 1 MG TAB PO SCH (08:20)
[2022-07-06] MEDS: metFORMIN (GLUCOPHAGE) 500MG TAB PO SCH (08:20)
[2022-07-06] MEDS: PANTOPRAZOLE 40MG TAB (PROTONIX) PO SCH (08:21)
[2022-07-06] MEDS: NICOTINE POLACRILEX 2 MG GUM PO PRN ×2 (08:23→12:51)
[2022-07-07] MEDS ORDERED: PRED10TA2 PO (07:36)
== END 2022-07-06 13:03 | disposition home or self-care (01) | DRG 776 ==
LOC: M ED 21:39 → M ED INP 07-01 13:56 → M PSY 07-01 16:01
PROVIDERS: ADMIT Psychiatry & Neurology Psychiatry; ATTEND Psychiatry & Neurology Psychiatry
DX: F19.94 Other psychoactive substance use, unspecified with psychoactive substance-induced mood disorder (principal); F17.210 Nicotine dependence, cigarettes, uncomplicated; F60.89 Other specific personality disorders; Z91.51 Personal history of suicidal behavior; Z91.52 Personal history of nonsuicidal self-harm; Z90.49 Acquired absence of other specified parts of digestive tract; Z20.822 Contact with and (suspected) exposure to COVID-19; Z79.899 Other long term (current) drug therapy; Z81.8 Family history of other mental and behavioral disorders; E66.9 Obesity, unspecified; E11.9 Type 2 diabetes mellitus without complications; Z79.84 Long term (current) use of oral hypoglycemic drugs; K21.9 Gastro-esophageal reflux disease without esophagitis; Z78.1 Physical restraint status; M25.562 Pain in left knee

== ENCOUNTER 2022-07-07 00:04 | Emergency (ER) | payer BC, MEDICAID ==
[~2022-07-07] VITALS: Ht 167.6 cm; Wt 118.2 kg
[2022-07-07] MEDS ORDERED: PRED10TA2 PO (07:36)
[2022-07-07 07:45] VITALS: BP 127/1
== END 2022-07-07 08:00 | disposition home or self-care (01) ==
LOC: EDBD 00:04 → M ED 00:04
DX: M54.12 Radiculopathy, cervical region (principal); F33.9 Major depressive disorder, recurrent, unspecified; F20.9 Schizophrenia, unspecified; Z79.899 Other long term (current) drug therapy; Z79.84 Long term (current) use of oral hypoglycemic drugs; F17.200 Nicotine dependence, unspecified, uncomplicated

== ENCOUNTER 2022-07-07 22:15 | Emergency (ER) | payer BC, MEDICAID ==
[~2022-07-07] VITALS: Ht 167.6 cm; Wt 118.2 kg
[~2022-07-07 22:15] MED LIST changes: +PRED10TA2 PO
[2022-07-07] MEDS ORDERED: OLANZapine ORAL DISINTEGRATING TAB 5MG PO ONE (22:55)
[2022-07-07] MEDS ORDERED: HOME MED LIST COMPLETE! XX SCH (23:15)
[2022-07-07 23:17] LABS: HEMATOCRIT 37.8 % (36.0-47.0); HEMOGLOBIN 12.1 g/dl (12.0-15.5); MEAN CORPUSCULAR HEMOGLOBIN 26.8 pg (27.0-33.0); MEAN CORPUSCULAR VOLUME 83.6 fl (80.0-96.0); PLATELET COUNT, AUTOMATED 352 10^3/uL (150-450); RED BLOOD COUNT 4.52 10^6/uL (4.00-5.40)
[2022-07-07 23:46] LABS: HCG, SERUM QUALITATIVE NEGATIVE (NEGATIVE)
[2022-07-07 23:48] LABS: RSV AMPLIFICATION NEGATIVE (NEGATIVE)
[2022-07-08 00:01] LABS: ACETAMINOPHEN LEVEL < 2.0 UG/ML (10.0-30.0); ALBUMIN 3.5 GM/DL (3.2-5.2); ALT/SGPT 29 U/L (12-78); BILIRUBIN,DIRECT < 0.1 MG/DL (0.0-0.2); BILIRUBIN,TOTAL 0.2 MG/DL (0.2-1.0); BLOOD UREA NITROGEN 14 MG/DL (7-18); CARBON DIOXIDE LEVEL 25 MEQ/L (21-32); CHLORIDE LEVEL 108 MEQ/L (98-107); CREATININE FOR GFR 0.85 MG/DL (0.55-1.30); ETHYL ALCOHOL (ETHANOL) 0.007 % (0.000-0.010); GLOMERULAR FILTRATION RATE > 60.0 (>60); GLUCOSE, FASTING 103 MG/DL (70-100); POTASSIUM SERUM 3.7 MEQ/L (3.5-5.1); SALICYLATE LEVEL < 1.7 MG/DL (5.0-30.0); SODIUM LEVEL 140 MEQ/L (136-145); TOTAL PROTEIN 7.1 GM/DL (6.4-8.2)
[2022-07-08 00:01] LABS: AMPHETAMINES LEVEL URINE NEGATIVE (NEGATIVE); BARBITURATES URINE NEGATIVE (NEGATIVE); BENZODIAZEPINES URINE NEGATIVE (NEGATIVE); CANNABINOIDS URINE NEGATIVE (NEGATIVE); COCAINE METABOLITE URINE NEGATIVE (NEGATIVE); METHADONE URINE NEGATIVE (NEGATIVE); OPIATES URINE NEGATIVE (NEGATIVE); PHENCYCLIDINE URINE NEGATIVE (NEGATIVE)
[2022-07-08] MEDS: metFORMIN (GLUCOPHAGE) 500MG TAB PO SCH ×2 (08:00→18:00)
[2022-07-08] MEDS: LURASIDONE HCL 40MG TAB (LATUDA) PO SCH (08:00)
[2022-07-08] MEDS: SERTRALINE HCL 50 MG TAB PO SCH (09:00)
[2022-07-08] MEDS: PANTOPRAZOLE 40MG TAB (PROTONIX) PO SCH (09:00)
[2022-07-08] MEDS: BENZTROPINE 2 MG TAB PO SCH (09:00)
[2022-07-08] MEDS ORDERED: MIDAZOLAM INJ 2MG/2ML VIAL (J2250 PER 1MG) IM ONE (23:40)
[2022-07-08] MEDS ORDERED: HALOPERIDOL 5MG/ML VIAL (J1630 PER 1) IM ONE (23:40)
[2022-07-09] MEDS: LURASIDONE HCL 40MG TAB (LATUDA) PO SCH ×2 (08:00→13:40)
[2022-07-09] MEDS: metFORMIN (GLUCOPHAGE) 500MG TAB PO SCH ×2 (08:00→13:40)
[2022-07-09] MEDS: BENZTROPINE 2 MG TAB PO SCH ×2 (09:00→13:40)
[2022-07-09] MEDS: PANTOPRAZOLE 40MG TAB (PROTONIX) PO SCH ×2 (09:00→13:40)
[2022-07-09] MEDS: SERTRALINE HCL 50 MG TAB PO SCH ×2 (09:00→13:40)
[2022-07-09 14:35] VITALS: BP 130/65
== END 2022-07-09 14:39 | disposition home or self-care (01) ==
LOC: M ED 22:15
DX: F43.21 Adjustment disorder with depressed mood (principal); R45.851 Suicidal ideations; F17.200 Nicotine dependence, unspecified, uncomplicated
CPT/HCPCS: 80048; 80076; 80143; 80307; 82077; 84443; 84703; 85027; 87631; 93005; 96372; 99285; J1630; J2250

== ENCOUNTER 2022-07-13 20:27 | Emergency (ER) | payer BC, MEDICAID ==
[2022-07-13] MEDS ORDERED: IBUPROFEN 600MG TAB PO ONE (22:15)
[2022-07-13 22:16] LABS: HEMATOCRIT 37.4 % (36.0-47.0); HEMOGLOBIN 11.8 g/dl (12.0-15.5); MEAN CORPUSCULAR HEMOGLOBIN 26.2 pg (27.0-33.0); MEAN CORPUSCULAR HGB CONC 31.6 g/dl (32.0-36.5); MEAN CORPUSCULAR VOLUME 83.1 fl (80.0-96.0); PLATELET COUNT, AUTOMATED 312 10^3/uL (150-450); WHITE BLOOD COUNT 7.7 10^3/uL (4.0-10.0)
[2022-07-13 22:52] LABS: AMPHETAMINES LEVEL URINE NEGATIVE (NEGATIVE); BARBITURATES URINE NEGATIVE (NEGATIVE); BENZODIAZEPINES URINE NEGATIVE (NEGATIVE); CANNABINOIDS URINE NEGATIVE (NEGATIVE); COCAINE METABOLITE URINE NEGATIVE (NEGATIVE); HCG, SERUM QUALITATIVE NEGATIVE (NEGATIVE); METHADONE URINE NEGATIVE (NEGATIVE); OPIATES URINE NEGATIVE (NEGATIVE); PHENCYCLIDINE URINE NEGATIVE (NEGATIVE)
[2022-07-13 23:07] LABS: RSV AMPLIFICATION NEGATIVE (NEGATIVE)
[2022-07-13 23:15] LABS: ACETAMINOPHEN LEVEL < 2.0 UG/ML (10.0-30.0); ALBUMIN 3.4 GM/DL (3.2-5.2); ALT/SGPT 23 U/L (12-78); BILIRUBIN,DIRECT 0.1 MG/DL (0.0-0.2); BILIRUBIN,TOTAL 0.2 MG/DL (0.2-1.0); BLOOD UREA NITROGEN 13 MG/DL (7-18); CALCIUM LEVEL 9.1 MG/DL (8.5-10.1); CARBON DIOXIDE LEVEL 29 MEQ/L (21-32); CHLORIDE LEVEL 107 MEQ/L (98-107); CREATININE FOR GFR 0.74 MG/DL (0.55-1.30); ETHYL ALCOHOL (ETHANOL) < 0.003 % (0.000-0.010); GLOMERULAR FILTRATION RATE > 60.0 (>60); GLUCOSE, FASTING 89 MG/DL (70-100); POTASSIUM SERUM 4.4 MEQ/L (3.5-5.1); SALICYLATE LEVEL < 1.7 MG/DL (5.0-30.0); SODIUM LEVEL 140 MEQ/L (136-145); TOTAL PROTEIN 6.7 GM/DL (6.4-8.2)
[2022-07-14] MEDS ORDERED: ZOLO100T PO (08:49)
[2022-07-14] MEDS ORDERED: HOME MED LIST COMPLETE! XX SCH (08:50)
[2022-07-14] MEDS ORDERED: LURASIDONE HCL 40MG TAB (LATUDA) PO ONE (13:15)
[2022-07-14] MEDS ORDERED: traZODone 50 MG TAB PO ONE (13:15)
[2022-07-14] MEDS ORDERED: SERTRALINE HCL 50 MG TAB PO ONE (13:15)
[2022-07-14] MEDS ORDERED: BENZTROPINE 1 MG TAB PO ONE (13:15)
[2022-07-14] MEDS ORDERED: OLANZapine 5 MG TAB PO ONE (17:05)
[2022-07-14] MEDS ORDERED: traZODone 50 MG TAB PO PRN (19:45)
[2022-07-14] MEDS ORDERED: metFORMIN (GLUCOPHAGE) 500MG TAB PO ONE (21:00)
[2022-07-15 13:16] VITALS: BP 129/59
== END 2022-07-15 13:25 | disposition home or self-care (01) ==
LOC: M ED 20:27
DX: F43.0 Acute stress reaction (principal); R45.851 Suicidal ideations; F32.A Depression, unspecified; E11.9 Type 2 diabetes mellitus without complications; K21.9 Gastro-esophageal reflux disease without esophagitis; Z79.84 Long term (current) use of oral hypoglycemic drugs; F90.9 Attention-deficit hyperactivity disorder, unspecified type

== ENCOUNTER 2022-07-23 21:38 | Emergency (ER) | payer BC, MEDICAID ==
[~2022-07-23] VITALS: Ht 167.6 cm; Wt 118.2 kg
[~2022-07-23 21:38] MED LIST changes: +ZOLO100T PO
[2022-07-23] MEDS ORDERED: LORazepam 2 MG/ML VIAL IM STA (22:54)
[2022-07-23] MEDS ORDERED: HALOPERIDOL 5MG/ML VIAL (J1630 PER 1) IM ONE (22:55)
[2022-07-23] MEDS ORDERED: diphenhydrAMINE 50MG/ML VIAL (J1200) IM ONE (22:55)
[2022-07-23] MEDS ORDERED: HOME MED LIST COMPLETE! XX SCH (23:40)
[2022-07-24 00:15] LABS: HEMATOCRIT 37.7 % (36.0-47.0); HEMOGLOBIN 11.9 g/dl (12.0-15.5); MEAN CORPUSCULAR HEMOGLOBIN 26.3 pg (27.0-33.0); MEAN CORPUSCULAR HGB CONC 31.6 g/dl (32.0-36.5); MEAN CORPUSCULAR VOLUME 83.2 fl (80.0-96.0); PLATELET COUNT, AUTOMATED 320 10^3/uL (150-450); RED BLOOD COUNT 4.53 10^6/uL (4.00-5.40); WHITE BLOOD COUNT 9.7 10^3/uL (4.0-10.0)
[2022-07-24 00:27] LABS: HCG, SERUM QUALITATIVE NEGATIVE (NEGATIVE)
[2022-07-24 00:30] LABS: RSV AMPLIFICATION NEGATIVE (NEGATIVE)
[2022-07-24 00:45] LABS: ACETAMINOPHEN LEVEL < 2.0 UG/ML (10.0-30.0); ALBUMIN 3.3 GM/DL (3.2-5.2); ALT/SGPT 21 U/L (12-78); BILIRUBIN,DIRECT < 0.1 MG/DL (0.0-0.2); BILIRUBIN,TOTAL 0.2 MG/DL (0.2-1.0); BLOOD UREA NITROGEN 13 MG/DL (7-18); CALCIUM LEVEL 8.9 MG/DL (8.5-10.1); CARBON DIOXIDE LEVEL 26 MEQ/L (21-32); CHLORIDE LEVEL 109 MEQ/L (98-107); CREATININE FOR GFR 0.83 MG/DL (0.55-1.30); ETHYL ALCOHOL (ETHANOL) < 0.003 % (0.000-0.010); GLOMERULAR FILTRATION RATE > 60.0 (>60); GLUCOSE, FASTING 103 MG/DL (70-100); POTASSIUM SERUM 3.7 MEQ/L (3.5-5.1); SALICYLATE LEVEL < 1.7 MG/DL (5.0-30.0); SODIUM LEVEL 142 MEQ/L (136-145); TOTAL PROTEIN 6.9 GM/DL (6.4-8.2)
[2022-07-24 01:51] LABS: AMPHETAMINES LEVEL URINE NEGATIVE (NEGATIVE); BARBITURATES URINE NEGATIVE (NEGATIVE); BENZODIAZEPINES URINE NEGATIVE (NEGATIVE); CANNABINOIDS URINE NEGATIVE (NEGATIVE); COCAINE METABOLITE URINE NEGATIVE (NEGATIVE); METHADONE URINE NEGATIVE (NEGATIVE); OPIATES URINE NEGATIVE (NEGATIVE); PHENCYCLIDINE URINE NEGATIVE (NEGATIVE)
[2022-07-24 13:40] VITALS: BP 139/79
== END 2022-07-24 14:34 | disposition home or self-care (01) ==
LOC: EDBD 21:38 → M ED 21:38
DX: F60.89 Other specific personality disorders (principal); E11.9 Type 2 diabetes mellitus without complications; K21.9 Gastro-esophageal reflux disease without esophagitis; F17.200 Nicotine dependence, unspecified, uncomplicated; F90.9 Attention-deficit hyperactivity disorder, unspecified type
CPT/HCPCS: 36415; 80048; 80076; 80143; 80307; 82077; 83605; 84443; 84703; 85027; 87631; 96372; 99285; J1200; J1630; J2060

== ENCOUNTER 2022-07-28 01:02 | Emergency (ER) | payer BC, MEDICAID ==
[~2022-07-28] VITALS: Ht 167.6 cm; Wt 118.2 kg
[2022-07-28 01:25] LABS: BASO % 0.4 % (0.0-1.0); EOS % 0.4 % (0.0-3.0); HEMATOCRIT 40.2 % (36.0-47.0); HEMOGLOBIN 12.9 g/dl (12.0-15.5); LYMPH # 3.4 10^3/uL (1.5-5.0); LYMPH % 33.9 % (24.0-44.0); MEAN CORPUSCULAR HEMOGLOBIN 26.2 pg (27.0-33.0); MEAN CORPUSCULAR HGB CONC 32.1 g/dl (32.0-36.5); MEAN CORPUSCULAR VOLUME 81.5 fl (80.0-96.0); MONO # 0.4 10^3/uL (0.0-0.8); MONO % 4.4 % (2.0-8.0); NEUTROPHILS % 60.5 % (36.0-66.0); PLATELET COUNT, AUTOMATED 379 10^3/uL (150-450); RED BLOOD COUNT 4.93 10^6/uL (4.00-5.40); WHITE BLOOD COUNT 9.9 10^3/uL (4.0-10.0)
[2022-07-28 02:11] LABS: ALBUMIN 3.6 GM/DL (3.2-5.2); ALT/SGPT 24 U/L (12-78); BILIRUBIN,DIRECT 0.1 MG/DL (0.0-0.2); BILIRUBIN,TOTAL 0.2 MG/DL (0.2-1.0); BLOOD UREA NITROGEN 14 MG/DL (7-18); CALCIUM LEVEL 9.8 MG/DL (8.5-10.1); CARBON DIOXIDE LEVEL 26 MEQ/L (21-32); CHLORIDE LEVEL 105 MEQ/L (98-107); CREATININE FOR GFR 0.83 MG/DL (0.55-1.30); GLOMERULAR FILTRATION RATE > 60.0 (>60); GLUCOSE, FASTING 101 MG/DL (70-100); LIPASE 147 U/L (73-393); SODIUM LEVEL 138 MEQ/L (136-145); TOTAL PROTEIN 7.3 GM/DL (6.4-8.2)
[2022-07-28 02:22] LABS: HCG, SERUM QUALITATIVE NEGATIVE (NEGATIVE)
[2022-07-28] MEDS ORDERED: ONDANSETRON 4MG 2ML VIAL IV ONE (04:55)
[2022-07-28] MEDS ORDERED: PANTOPRAZOLE 40MG VIAL IV ONE (04:55)
[2022-07-28] MEDS ORDERED: ISOVUE-370 76% 100ML VIAL As Ordered ONE (05:01)
[2022-07-28] MEDS ORDERED: diphenhydrAMINE 50MG/ML VIAL (J1200) IV ONE (07:50)
[2022-07-28] MEDS ORDERED: SUCR1TA PO (09:28)
[2022-07-28] MEDS ORDERED: OMEP40CA4 PO (09:28)
[2022-07-28 09:30] VITALS: BP 122/55
== END 2022-07-28 09:55 | disposition home or self-care (01) ==
LOC: M ED 01:02 → EDBD 01:02 → M ED 09:55
DX: K76.0 Fatty (change of) liver, not elsewhere classified (principal); R16.1 Splenomegaly, not elsewhere classified; K29.70 Gastritis, unspecified, without bleeding; F17.200 Nicotine dependence, unspecified, uncomplicated; F12.10 Cannabis abuse, uncomplicated; Z79.899 Other long term (current) drug therapy
CPT/HCPCS: 74177; 80048; 80076; 81002; 83605; 83690; 84703; 85025; 96374; 96375; 99284; C9113; J1200; J2405; Q9967

== ENCOUNTER 2022-08-11 22:22 | Inpatient (IN) | payer BC, MEDICAID ==
[~2022-08-11] VITALS: Ht 167.6 cm; Wt 118.2 kg
[~2022-08-11 22:22] MED LIST changes: +OMEP40CA4 PO; +SUCR1TA PO
[2022-08-11] MEDS ORDERED: HALD50IN4 (22:44)
[2022-08-11 23:01] LABS: HEMATOCRIT 39.9 % (36.0-47.0); HEMOGLOBIN 12.8 g/dl (12.0-15.5); MEAN CORPUSCULAR HEMOGLOBIN 26.3 pg (27.0-33.0); MEAN CORPUSCULAR HGB CONC 32.1 g/dl (32.0-36.5); MEAN CORPUSCULAR VOLUME 81.9 fl (80.0-96.0); PLATELET COUNT, AUTOMATED 342 10^3/uL (150-450); RED BLOOD COUNT 4.87 10^6/uL (4.00-5.40); WHITE BLOOD COUNT 9.4 10^3/uL (4.0-10.0)
[2022-08-11 23:45] LABS: AMPHETAMINES LEVEL URINE NEGATIVE (NEGATIVE); BARBITURATES URINE NEGATIVE (NEGATIVE); BENZODIAZEPINES URINE NEGATIVE (NEGATIVE); CANNABINOIDS URINE NEGATIVE (NEGATIVE); COCAINE METABOLITE URINE NEGATIVE (NEGATIVE); METHADONE URINE NEGATIVE (NEGATIVE); OPIATES URINE NEGATIVE (NEGATIVE); PHENCYCLIDINE URINE NEGATIVE (NEGATIVE)
[2022-08-11 23:48] LABS: RSV AMPLIFICATION NEGATIVE (NEGATIVE)
[2022-08-11 23:59] LABS: HCG, SERUM QUALITATIVE NEGATIVE (NEGATIVE)
[2022-08-12 00:01] LABS: BLOOD UREA NITROGEN 12 MG/DL (7-18); CARBON DIOXIDE LEVEL 22 MEQ/L (21-32); CHLORIDE LEVEL 109 MEQ/L (98-107); CREATININE FOR GFR 0.69 MG/DL (0.55-1.30); GLOMERULAR FILTRATION RATE > 60.0 (>60); GLUCOSE, FASTING 94 MG/DL (70-100); SODIUM LEVEL 140 MEQ/L (136-145)
[2022-08-12 00:02] LABS: ACETAMINOPHEN LEVEL < 2.0 UG/ML (10.0-30.0); ALBUMIN 3.6 GM/DL (3.2-5.2); ALT/SGPT 24 U/L (12-78); BILIRUBIN,DIRECT < 0.1 MG/DL (0.0-0.2); BILIRUBIN,TOTAL 0.2 MG/DL (0.2-1.0); CALCIUM LEVEL 8.9 MG/DL (8.5-10.1); ETHYL ALCOHOL (ETHANOL) < 0.003 % (0.000-0.010); SALICYLATE LEVEL < 1.7 MG/DL (5.0-30.0); TOTAL PROTEIN 7.2 GM/DL (6.4-8.2)
[2022-08-12] MEDS ORDERED: hydrOXYzine 50 MG TAB PO ONE (00:15)
[2022-08-12] MEDS ORDERED: BENZ-52 PO (06:04)
[2022-08-12] MEDS ORDERED: METF-839 PO (06:13)
[2022-08-12] MEDS ORDERED: OMEP40CA5 PO (06:13)
[2022-08-12] MEDS ORDERED: HALO10AM IM (06:13)
[2022-08-12] MEDS ORDERED: SUCR1TAB56 PO (06:15)
[2022-08-12] MEDS ORDERED: HOME MED LIST COMPLETE! XX SCH (06:15)
[2022-08-12 20:16] LABS: AMPHETAMINES LEVEL URINE NEGATIVE (NEGATIVE); BARBITURATES URINE NEGATIVE (NEGATIVE); BENZODIAZEPINES URINE NEGATIVE (NEGATIVE); CANNABINOIDS URINE NEGATIVE (NEGATIVE); COCAINE METABOLITE URINE NEGATIVE (NEGATIVE); METHADONE URINE NEGATIVE (NEGATIVE); OPIATES URINE NEGATIVE (NEGATIVE); PHENCYCLIDINE URINE NEGATIVE (NEGATIVE)
[2022-08-12] MEDS: SUCRALFATE 1 GM TAB PO SCH (23:33)
[2022-08-12] MEDS ORDERED: LORazepam 1 MG TAB PO STA (23:52)
[2022-08-13] MEDS: SUCRALFATE 1 GM TAB PO SCH ×4 (07:00→21:00)
[2022-08-13] MEDS ORDERED: metFORMIN (GLUCOPHAGE) 500MG TAB PO SCH (08:00)
[2022-08-13] MEDS ORDERED: BENZTROPINE 2 MG TAB PO SCH (09:00)
[2022-08-13] MEDS ORDERED: SERTRALINE HCL 50 MG TAB PO SCH (09:00)
[2022-08-13] MEDS ORDERED: OMEPRAZOLE 20MG CAP PO SCH (09:00)
[2022-08-13] MEDS ORDERED: NICOTINE 21MG/24HR 1 EA TRANSDERMAL TD PRN (13:25)
[2022-08-13] MEDS ORDERED: MOM 30ML SUSPENSION UDC PO PRN (13:25)
[2022-08-13] MEDS ORDERED: MAALOX 30 ML SUSP *UDC PO PRN (13:25)
[2022-08-13] MEDS ORDERED: ACETAMINOPHEN TAB 650MG DOSE (2X325MG) PO PRN (13:25)
[2022-08-13 15:04] VITALS: BP 141/76
[2022-08-13 15:52] VITALS: BP 141/76
[2022-08-13] MEDS: metFORMIN (GLUCOPHAGE) 500MG TAB PO SCH (17:45)
[2022-08-13] MEDS: NICOTINE POLACRILEX 2 MG GUM PO PRN ×2 (19:25→23:41)
[2022-08-13] MEDS: traZODone 50 MG TAB PO PRN (21:37)
[2022-08-13] MEDS: OLANZapine ORAL DISINTEGRATING TAB 5MG PO PRN (23:05)
[2022-08-14 06:21] VITALS: BP 115/56
[2022-08-14] MEDS: SUCRALFATE 1 GM TAB PO SCH ×4 (06:47→19:54)
[2022-08-14] MEDS: NICOTINE POLACRILEX 2 MG GUM PO PRN ×4 (08:00→22:56)
[2022-08-14] MEDS: PANTOPRAZOLE 40MG TAB (PROTONIX) PO SCH (08:56)
[2022-08-14] MEDS: SERTRALINE HCL 50 MG TAB PO SCH (08:56)
[2022-08-14] MEDS: metFORMIN (GLUCOPHAGE) 500MG TAB PO SCH ×2 (08:56→18:00)
[2022-08-14] MEDS: BENZTROPINE 2 MG TAB PO SCH (08:57)
[2022-08-14] MEDS: traZODone 50 MG TAB PO PRN (23:41)
[2022-08-15] MEDS: SUCRALFATE 1 GM TAB PO SCH ×4 (07:30→20:14)
[2022-08-15] MEDS: metFORMIN (GLUCOPHAGE) 500MG TAB PO SCH ×2 (08:00→17:10)
[2022-08-15] MEDS: PANTOPRAZOLE 40MG TAB (PROTONIX) PO SCH (09:00)
[2022-08-15] MEDS: BENZTROPINE 2 MG TAB PO SCH (09:00)
[2022-08-15] MEDS: SERTRALINE HCL 50 MG TAB PO SCH (09:00)
[2022-08-15] MEDS: NICOTINE POLACRILEX 2 MG GUM PO PRN ×3 (13:11→21:38)
[2022-08-15 13:28] VITALS: BP 126/72
[2022-08-15] MEDS: LORazepam 1 MG TAB PO PRN (17:56)
[2022-08-15] MEDS: traZODone 50 MG TAB PO PRN (22:34)
[2022-08-16] MEDS: SUCRALFATE 1 GM TAB PO SCH ×4 (07:03→21:00)
[2022-08-16] MEDS: metFORMIN (GLUCOPHAGE) 500MG TAB PO SCH ×2 (08:00→17:17)
[2022-08-16] MEDS: PANTOPRAZOLE 40MG TAB (PROTONIX) PO SCH (09:00)
[2022-08-16] MEDS: SERTRALINE HCL 50 MG TAB PO SCH (09:00)
[2022-08-16] MEDS: BENZTROPINE 2 MG TAB PO SCH (09:00)
[2022-08-16] MEDS: NICOTINE POLACRILEX 2 MG GUM PO PRN ×2 (15:29→23:00)
[2022-08-16 16:26] VITALS: BP 137/73
[2022-08-16] MEDS: LORazepam 1 MG TAB PO PRN (16:58)
[2022-08-16] MEDS: traZODone 50 MG TAB PO PRN (23:59)
[2022-08-17] MEDS: OLANZapine ORAL DISINTEGRATING TAB 5MG PO PRN (01:05)
[2022-08-17] MEDS: LORazepam 1 MG TAB PO PRN (01:08)
[2022-08-17] MEDS: SUCRALFATE 1 GM TAB PO SCH (08:14)
[2022-08-17] MEDS: metFORMIN (GLUCOPHAGE) 500MG TAB PO SCH (08:15)
[2022-08-17] MEDS: PANTOPRAZOLE 40MG TAB (PROTONIX) PO SCH (08:15)
[2022-08-17] MEDS: BENZTROPINE 2 MG TAB PO SCH (08:15)
[2022-08-17] MEDS: SERTRALINE HCL 50 MG TAB PO SCH (08:15)
[2022-08-17] MEDS: NICOTINE POLACRILEX 2 MG GUM PO PRN (08:18)
== END 2022-08-17 10:08 | disposition home or self-care (01) | DRG 753 ==
LOC: M ED 22:22 → M ED INP 08-13 13:48 → M PSY 08-13 15:13
PROVIDERS: ADMIT Psychiatry & Neurology Psychiatry; ATTEND Psychiatry & Neurology Psychiatry
DX: F39 Unspecified mood [affective] disorder (principal); F17.210 Nicotine dependence, cigarettes, uncomplicated; F60.3 Borderline personality disorder; F91.9 Conduct disorder, unspecified; R45.851 Suicidal ideations; Z91.14 Patient's other noncompliance with medication regimen; Z91.51 Personal history of suicidal behavior; Z91.52 Personal history of nonsuicidal self-harm; Z90.49 Acquired absence of other specified parts of digestive tract; E66.9 Obesity, unspecified; Z79.84 Long term (current) use of oral hypoglycemic drugs; Z79.899 Other long term (current) drug therapy; Z20.822 Contact with and (suspected) exposure to COVID-19; F60.89 Other specific personality disorders; E11.9 Type 2 diabetes mellitus without complications; K21.9 Gastro-esophageal reflux disease without esophagitis

== ENCOUNTER 2022-08-25 21:23 | Emergency (ER) | payer BC, MEDICAID ==
[~2022-08-25 21:23] MED LIST changes: +HALD50IN4; +HALO10AM IM; +OMEP40CA5 PO; +SUCR1TAB56 PO
[2022-08-25 22:40] LABS: HEMATOCRIT 37.2 % (36.0-47.0); HEMOGLOBIN 11.8 g/dl (12.0-15.5); MEAN CORPUSCULAR HEMOGLOBIN 25.9 pg (27.0-33.0); MEAN CORPUSCULAR HGB CONC 31.7 g/dl (32.0-36.5); MEAN CORPUSCULAR VOLUME 81.6 fl (80.0-96.0); PLATELET COUNT, AUTOMATED 323 10^3/uL (150-450); RED BLOOD COUNT 4.56 10^6/uL (4.00-5.40); WHITE BLOOD COUNT 7.7 10^3/uL (4.0-10.0)
[2022-08-25 23:11] LABS: RSV AMPLIFICATION NEGATIVE (NEGATIVE)
[2022-08-26 00:38] LABS: ACETAMINOPHEN LEVEL 5.5 UG/ML (10.0-30.0); ALT/SGPT 20 U/L (12-78); BILIRUBIN,DIRECT 0.1 MG/DL (0.0-0.2); BILIRUBIN,TOTAL 0.3 MG/DL (0.2-1.0); BLOOD UREA NITROGEN 10 MG/DL (7-18); CALCIUM LEVEL 8.7 MG/DL (8.5-10.1); CARBON DIOXIDE LEVEL 28 MEQ/L (21-32); CHLORIDE LEVEL 106 MEQ/L (98-107); CREATININE FOR GFR 0.74 MG/DL (0.55-1.30); ETHYL ALCOHOL (ETHANOL) < 0.003 % (0.000-0.010); GLOMERULAR FILTRATION RATE > 60.0 (>60); GLUCOSE, FASTING 101 MG/DL (70-100); POTASSIUM SERUM 3.7 MEQ/L (3.5-5.1); SALICYLATE LEVEL < 1.7 MG/DL (5.0-30.0); SODIUM LEVEL 140 MEQ/L (136-145); TOTAL PROTEIN 6.3 GM/DL (6.4-8.2)
[2022-08-26] MEDS ORDERED: HOME MED LIST COMPLETE! XX SCH (00:55)
[2022-08-26 00:57] LABS: HCG, SERUM QUALITATIVE NEGATIVE (NEGATIVE)
[2022-08-26] MEDS ORDERED: metFORMIN XR 500MG TAB *GLUCOPHAGE XR PO SCH (08:00)
[2022-08-26] MEDS ORDERED: METF-838 PO (08:58)
[2022-08-26] MEDS ORDERED: BENZTROPINE 1 MG TAB PO SCH ×2 (09:00→09:28)
[2022-08-26] MEDS ORDERED: SERTRALINE HCL 50 MG TAB PO SCH (09:00)
[2022-08-26] MEDS ORDERED: BENZTROPINE 2 MG TAB PO SCH (09:00)
[2022-08-26] MEDS ORDERED: metFORMIN (GLUCOPHAGE) 500MG TAB PO SCH (09:00)
[2022-08-26] MEDS ORDERED: PANTOPRAZOLE 40MG TAB (PROTONIX) PO SCH (09:00)
[2022-08-26] MEDS ORDERED: OMEPRAZOLE 20MG CAP PO SCH (09:00)
[2022-08-26] MEDS: SUCRALFATE 1 GM TAB PO SCH ×2 (09:40→11:53)
[2022-08-26 10:49] LABS: AMPHETAMINES LEVEL URINE NEGATIVE (NEGATIVE); BARBITURATES URINE NEGATIVE (NEGATIVE); BENZODIAZEPINES URINE NEGATIVE (NEGATIVE); CANNABINOIDS URINE NEGATIVE (NEGATIVE); COCAINE METABOLITE URINE NEGATIVE (NEGATIVE); METHADONE URINE NEGATIVE (NEGATIVE); OPIATES URINE NEGATIVE (NEGATIVE); PHENCYCLIDINE URINE NEGATIVE (NEGATIVE)
[2022-08-26 12:52] VITALS: BP 141/63
== END 2022-08-26 12:55 | disposition home or self-care (01) ==
LOC: M ED 21:23
DX: F32.A Depression, unspecified (principal); R45.851 Suicidal ideations; F41.9 Anxiety disorder, unspecified; F19.10 Other psychoactive substance abuse, uncomplicated; F60.3 Borderline personality disorder; F17.210 Nicotine dependence, cigarettes, uncomplicated; Z79.899 Other long term (current) drug therapy; Z79.84 Long term (current) use of oral hypoglycemic drugs

== ENCOUNTER → 2022-08-28 | Outpatient (CLI) | payer BC, MEDICAID ==
[~2022-08-28] MED LIST changes: +METF-838 PO
== END ==
LOC: M PLAIMG 08:05
PROVIDERS: ATTEND Orthopaedic Surgery Adult Reconstructive Orthopaedic Surgery
DX: S83.212A Bucket-handle tear of medial meniscus, current injury, left knee, initial encounter (principal); S83.252A Bucket-handle tear of lateral meniscus, current injury, left knee, initial encounter; S83.422A Sprain of lateral collateral ligament of left knee, initial encounter; S83.512A Sprain of anterior cruciate ligament of left knee, initial encounter; S83.412A Sprain of medial collateral ligament of left knee, initial encounter; M94.262 Chondromalacia, left knee; M71.22 Synovial cyst of popliteal space [Baker], left knee

== ENCOUNTER 2022-09-11 23:38 | Inpatient (IN) | payer BC, MEDICAID ==
[2022-09-11] MEDS ORDERED: OLANZapine 10 MG TAB PO ONE (23:55)
[2022-09-12] MEDS ORDERED: diphenhydrAMINE 50MG/ML VIAL IV STA (00:14)
[2022-09-12] MEDS ORDERED: HALOPERIDOL 5MG/ML VIAL (J1630 PER 1) IM STA (00:14)
[2022-09-12] MEDS ORDERED: LORazepam 2 MG/ML VIAL IM STA (00:14)
[2022-09-12] MEDS ORDERED: HALOPERIDOL 5MG/ML VIAL (J1630 PER 1) As Ordered ONE (00:17)
[2022-09-12 01:06] LABS: HEMATOCRIT 37.6 % (36.0-47.0); MEAN CORPUSCULAR HEMOGLOBIN 26.1 pg (27.0-33.0); MEAN CORPUSCULAR HGB CONC 31.9 g/dl (32.0-36.5); MEAN CORPUSCULAR VOLUME 81.7 fl (80.0-96.0); PLATELET COUNT, AUTOMATED 359 10^3/uL (150-450); WHITE BLOOD COUNT 10.9 10^3/uL (4.0-10.0)
[2022-09-12 01:35] LABS: ACETAMINOPHEN LEVEL < 2.0 UG/ML (10.0-20.0); ALBUMIN 3.8 G/DL (3.2-5.2); ALKALINE PHOSPHATASE 72 U/L (46-116); ALT/SGPT 25 U/L (7.0-40); AMPHETAMINES LEVEL URINE NEGATIVE (NEGATIVE); AST/SGOT 24 U/L (<34); BARBITURATES URINE NEGATIVE (NEGATIVE); BENZODIAZEPINES URINE NEGATIVE (NEGATIVE); BILIRUBIN,DIRECT 0.1 MG/DL (<0.4); BILIRUBIN,TOTAL 0.3 MG/DL (0.3-1.2); BLOOD UREA NITROGEN 8 MG/DL (9-23); CALCIUM LEVEL 8.8 MG/DL (8.5-10.1); CANNABINOIDS URINE NEGATIVE (NEGATIVE); CARBON DIOXIDE LEVEL 25 MMOL/L (20-31); CHLORIDE LEVEL 103 MMOL/L (98-107); COCAINE METABOLITE URINE NEGATIVE (NEGATIVE); CPK CREATINE PHOSPHOKINASE 170 U/L (34-145); CREATININE FOR GFR 0.65 MG/DL (0.55-1.30); ETHYL ALCOHOL (ETHANOL) 0.003 % (0.000-0.010); GLOMERULAR FILTRATION RATE > 60.0 (>60); GLUCOSE, FASTING 116 MG/DL (60-100); METHADONE URINE NEGATIVE (NEGATIVE); OPIATES URINE NEGATIVE (NEGATIVE); PHENCYCLIDINE URINE NEGATIVE (NEGATIVE); POTASSIUM SERUM 4.2 MMOL/L (3.5-5.1); SALICYLATE LEVEL < 3.0 MG/DL (<30); SODIUM LEVEL 140 MMOL/L (136-145); THYROID STIMULATING HORMONE 1.485 uIU/ML (0.55-4.78); TOTAL PROTEIN 6.8 G/DL (5.7-8.2)
[2022-09-12 01:51] LABS: RSV AMPLIFICATION NEGATIVE (NEGATIVE)
[2022-09-12 09:11] LABS: HCG, SERUM QUALITATIVE NEGATIVE (NEGATIVE)
[2022-09-12] MEDS ORDERED: CHLO100T30 PO (20:19)
[2022-09-12] MEDS ORDERED: METF500T13 PO (20:19)
[2022-09-12] MEDS ORDERED: PANT40TA29 PO (20:19)
[2022-09-12] MEDS ORDERED: HYDR50CA2 PO (20:19)
[2022-09-12] MEDS ORDERED: HALO50AM INJ (20:21)
[2022-09-12] MEDS ORDERED: HOME MED LIST COMPLETE! XX SCH (20:25)
[2022-09-12] MEDS ORDERED: diphenhydrAMINE 25MG CAP PO ONE (21:20)
[2022-09-12] MEDS ORDERED: ACETAMINOPHEN TAB 650MG DOSE (2X325MG) PO ONE (21:20)
[2022-09-12] MEDS ORDERED: ONDANSETRON 4MG ORAL DISINTEGRATING TAB PO ONE (21:20)
[2022-09-13] MEDS ORDERED: ACETAMINOPHEN TAB 650MG DOSE (2X325MG) PO ONE (11:45)
[2022-09-13] MEDS ORDERED: OLANZapine ORAL DISINTEGRATING TAB 5MG PO ONE (15:50)
[2022-09-13] MEDS ORDERED: hydrOXYzine 50 MG TAB PO PRN (17:15)
[2022-09-13] MEDS: metFORMIN (GLUCOPHAGE) 500MG TAB PO SCH (20:24)
[2022-09-13] MEDS ORDERED: BENZTROPINE 1 MG TAB PO SCH (21:00)
[2022-09-13] MEDS ORDERED: ACETAMINOPHEN 500 MG TAB PO ONE (22:25)
[2022-09-13] MEDS ORDERED: ONDANSETRON 4MG TAB PO ONE (22:25)
[2022-09-13] MEDS ORDERED: diphenhydrAMINE 50MG CAP PO ONE (22:25)
[2022-09-14] MEDS ORDERED: SERTRALINE HCL 50 MG TAB PO SCH (09:00)
[2022-09-14] MEDS ORDERED: PANTOPRAZOLE 40MG TAB (PROTONIX) PO SCH (09:00)
[2022-09-14] MEDS: metFORMIN (GLUCOPHAGE) 500MG TAB PO SCH ×2 (12:19→18:21)
[2022-09-14] MEDS ORDERED: MOM 30ML SUSPENSION UDC PO PRN (15:30)
[2022-09-14] MEDS ORDERED: MAALOX 30 ML SUSP *UDC PO PRN (15:30)
[2022-09-14] MEDS ORDERED: IBUPROFEN 400MG TAB PO PRN (15:30)
[2022-09-14 17:12] LABS: RSV AMPLIFICATION NEGATIVE (NEGATIVE)
[2022-09-14] MEDS: hydrOXYzine 50 MG TAB PO PRN (20:05)
[2022-09-14] MEDS: NICOTINE POLACRILEX 2 MG GUM PO PRN (21:19)
[2022-09-14] MEDS: BENZTROPINE 1 MG TAB PO SCH (21:28)
[2022-09-14] MEDS: traZODone 100 MG TAB PO PRN (23:06)
[2022-09-15] MEDS ORDERED: OLANZapine 10 MG TAB PO ONE
[2022-09-15] MEDS: NICOTINE POLACRILEX 2 MG GUM PO PRN ×5 (05:55→21:11)
[2022-09-15 06:12] VITALS: BP 167/82
[2022-09-15] MEDS: NICOTINE 21MG/24HR 1 EA TRANSDERMAL TD SCH (09:00)
[2022-09-15] MEDS: metFORMIN (GLUCOPHAGE) 500MG TAB PO SCH ×2 (09:53→18:19)
[2022-09-15] MEDS: PANTOPRAZOLE 40MG TAB (PROTONIX) PO SCH (09:53)
[2022-09-15] MEDS: SERTRALINE HCL 50 MG TAB PO SCH (09:53)
[2022-09-15] MEDS: BENZTROPINE 1 MG TAB PO SCH (20:01)
[2022-09-15] MEDS: traZODone 100 MG TAB PO PRN (20:02)
[2022-09-16] MEDS: NICOTINE POLACRILEX 2 MG GUM PO PRN ×4 (06:20→18:57)
[2022-09-16] MEDS: NICOTINE 21MG/24HR 1 EA TRANSDERMAL TD SCH (09:00)
[2022-09-16] MEDS: SERTRALINE HCL 50 MG TAB PO SCH (09:13)
[2022-09-16] MEDS: metFORMIN (GLUCOPHAGE) 500MG TAB PO SCH ×2 (09:14→18:00)
[2022-09-16] MEDS: PANTOPRAZOLE 40MG TAB (PROTONIX) PO SCH (09:14)
[2022-09-16] MEDS: BENZTROPINE 1 MG TAB PO SCH (22:02)
[2022-09-16] MEDS: hydrOXYzine 50 MG TAB PO PRN (23:04)
[2022-09-16] MEDS: traZODone 100 MG TAB PO PRN (23:04)
[2022-09-17] MEDS: NICOTINE 21MG/24HR 1 EA TRANSDERMAL TD SCH (09:00)
[2022-09-17] MEDS: metFORMIN (GLUCOPHAGE) 500MG TAB PO SCH ×2 (09:17→20:54)
[2022-09-17] MEDS: SERTRALINE HCL 50 MG TAB PO SCH (09:17)
[2022-09-17] MEDS: PANTOPRAZOLE 40MG TAB (PROTONIX) PO SCH (09:17)
[2022-09-17] MEDS: NICOTINE POLACRILEX 2 MG GUM PO PRN ×3 (09:19→22:34)
[2022-09-17] MEDS: hydrOXYzine 50 MG TAB PO PRN ×2 (16:27→23:12)
[2022-09-17 18:19] VITALS: BP 132/75
[2022-09-17] MEDS: BENZTROPINE 1 MG TAB PO SCH (20:54)
[2022-09-17] MEDS: traZODone 100 MG TAB PO PRN (20:54)
[2022-09-18] MEDS: NICOTINE 21MG/24HR 1 EA TRANSDERMAL TD SCH (10:14)
[2022-09-18] MEDS: metFORMIN (GLUCOPHAGE) 500MG TAB PO SCH ×2 (10:21→17:47)
[2022-09-18] MEDS: PANTOPRAZOLE 40MG TAB (PROTONIX) PO SCH (10:22)
[2022-09-18] MEDS: SERTRALINE HCL 50 MG TAB PO SCH (10:22)
[2022-09-18] MEDS: NICOTINE POLACRILEX 2 MG GUM PO PRN ×2 (15:18→21:59)
[2022-09-18 18:16] VITALS: BP 123/59
[2022-09-18] MEDS: BENZTROPINE 1 MG TAB PO SCH (20:02)
[2022-09-18] MEDS: traZODone 100 MG TAB PO PRN (20:02)
[2022-09-19] MEDS: hydrOXYzine 50 MG TAB PO PRN ×2 (00:04→20:51)
[2022-09-19 06:18] VITALS: BP 108/54
[2022-09-19] MEDS: NICOTINE POLACRILEX 2 MG GUM PO PRN ×3 (06:26→21:55)
[2022-09-19] MEDS: NICOTINE 21MG/24HR 1 EA TRANSDERMAL TD SCH (09:00)
[2022-09-19] MEDS: metFORMIN (GLUCOPHAGE) 500MG TAB PO SCH ×2 (09:37→17:29)
[2022-09-19] MEDS: SERTRALINE HCL 50 MG TAB PO SCH (09:37)
[2022-09-19] MEDS: PANTOPRAZOLE 40MG TAB (PROTONIX) PO SCH (09:37)
[2022-09-19 18:25] VITALS: BP 129/68
[2022-09-19] MEDS: BENZTROPINE 1 MG TAB PO SCH (20:26)
[2022-09-19] MEDS: traZODone 100 MG TAB PO PRN (20:26)
[2022-09-20 06:26] VITALS: BP 108/59
[2022-09-20] MEDS: PANTOPRAZOLE 40MG TAB (PROTONIX) PO SCH (08:55)
[2022-09-20] MEDS: SERTRALINE HCL 50 MG TAB PO SCH (08:55)
[2022-09-20] MEDS: metFORMIN (GLUCOPHAGE) 500MG TAB PO SCH ×2 (08:55→18:00)
[2022-09-20] MEDS: NICOTINE POLACRILEX 2 MG GUM PO PRN ×3 (08:56→22:58)
[2022-09-20] MEDS: NICOTINE 21MG/24HR 1 EA TRANSDERMAL TD SCH (08:58)
[2022-09-20] MEDS: hydrOXYzine 50 MG TAB PO PRN (19:58)
[2022-09-20] MEDS: traZODone 100 MG TAB PO PRN (19:59)
[2022-09-20] MEDS: BENZTROPINE 1 MG TAB PO SCH (20:00)
[2022-09-21] MEDS: NICOTINE POLACRILEX 2 MG GUM PO PRN (06:31)
[2022-09-21 06:36] VITALS: BP 113/57
[2022-09-21] MEDS: PANTOPRAZOLE 40MG TAB (PROTONIX) PO SCH (07:48)
[2022-09-21] MEDS: SERTRALINE HCL 50 MG TAB PO SCH (07:48)
[2022-09-21] MEDS: metFORMIN (GLUCOPHAGE) 500MG TAB PO SCH (07:48)
[2022-09-21] MEDS: NICOTINE 21MG/24HR 1 EA TRANSDERMAL TD SCH (07:50)
[2022-09-21] MEDS ORDERED: BENZ-52 PO (08:28)
[2022-09-21] MEDS ORDERED: METF500T13 PO (08:28)
[2022-09-21] MEDS ORDERED: HALO50AM INJ (08:28)
[2022-09-21] MEDS ORDERED: NICO2GUM PO (08:28)
[2022-09-21] MEDS ORDERED: ZOLO100T PO (08:28)
[2022-09-21] MEDS ORDERED: HALO5TAB33 PO (08:28)
[2022-09-21] MEDS ORDERED: CHLO100T30 PO (08:28)
[2022-09-21] MEDS ORDERED: TRAZ-257 PO (08:28)
== END 2022-09-21 08:51 | disposition home or self-care (01) | DRG 758 ==
LOC: M ED 23:38 → M ED INP 09-14 15:30 → M PSY 09-14 20:52
PROVIDERS: ADMIT Psychiatry & Neurology Psychiatry; ATTEND Student in an Organized Health Care Education/Training Program
DX: F63.81 Intermittent explosive disorder (principal); F31.9 Bipolar disorder, unspecified; F60.3 Borderline personality disorder; F17.200 Nicotine dependence, unspecified, uncomplicated; F12.10 Cannabis abuse, uncomplicated; R45.851 Suicidal ideations; Z91.51 Personal history of suicidal behavior; Z90.49 Acquired absence of other specified parts of digestive tract; Z20.822 Contact with and (suspected) exposure to COVID-19; Z81.8 Family history of other mental and behavioral disorders; Z59.00 Homelessness unspecified; Z79.84 Long term (current) use of oral hypoglycemic drugs; Z79.899 Other long term (current) drug therapy; D72.829 Elevated white blood cell count, unspecified

== ENCOUNTER 2022-09-25 17:58 | Emergency (ER) | payer BC, MEDICAID ==
[~2022-09-25] VITALS: Ht 167.6 cm; Wt 118.2 kg
[~2022-09-25 17:58] MED LIST changes: +CHLO100T30 PO; +HALO50AM INJ; +HYDR50CA2 PO; +NICO2GUM PO; +TRAZ-257 PO
[2022-09-25 19:48] VITALS: BP 145/75
[2022-09-25 19:48] LABS: HEMATOCRIT 37.7 % (36.0-47.0); HEMOGLOBIN 12.1 g/dl (12.0-15.5); MEAN CORPUSCULAR HEMOGLOBIN 26.1 pg (27.0-33.0); MEAN CORPUSCULAR HGB CONC 32.1 g/dl (32.0-36.5); MEAN CORPUSCULAR VOLUME 81.4 fl (80.0-96.0); PLATELET COUNT, AUTOMATED 350 10^3/uL (150-450); RED BLOOD COUNT 4.63 10^6/uL (4.00-5.40); WHITE BLOOD COUNT 9.1 10^3/uL (4.0-10.0)
[2022-09-25 20:14] LABS: AMPHETAMINES LEVEL URINE NEGATIVE (NEGATIVE); BARBITURATES URINE NEGATIVE (NEGATIVE); BENZODIAZEPINES URINE NEGATIVE (NEGATIVE); CANNABINOIDS URINE NEGATIVE (NEGATIVE); COCAINE METABOLITE URINE NEGATIVE (NEGATIVE); METHADONE URINE NEGATIVE (NEGATIVE); OPIATES URINE NEGATIVE (NEGATIVE); PHENCYCLIDINE URINE NEGATIVE (NEGATIVE)
[2022-09-25 20:15] LABS: ETHYL ALCOHOL (ETHANOL) 0.003 % (0.000-0.010)
[2022-09-25 20:17] LABS: ACETAMINOPHEN LEVEL < 2.0 UG/ML (10.0-20.0); ALBUMIN 3.6 G/DL (3.2-5.2); ALKALINE PHOSPHATASE 70 U/L (46-116); ALT/SGPT 17 U/L (7.0-40); AST/SGOT 16 U/L (<34); BILIRUBIN,DIRECT < 0.1 MG/DL (<0.4); BILIRUBIN,TOTAL 0.2 MG/DL (0.3-1.2); BLOOD UREA NITROGEN 12 MG/DL (9-23); CALCIUM LEVEL 8.6 MG/DL (8.5-10.1); CARBON DIOXIDE LEVEL 23 MMOL/L (20-31); CHLORIDE LEVEL 106 MMOL/L (98-107); CREATININE FOR GFR 0.67 MG/DL (0.55-1.30); GLOMERULAR FILTRATION RATE > 60.0 (>60); GLUCOSE, FASTING 110 MG/DL (60-100); HCG, SERUM QUALITATIVE NEGATIVE (NEGATIVE); POTASSIUM SERUM 3.7 MMOL/L (3.5-5.1); SALICYLATE LEVEL < 3.0 MG/DL (<30); SODIUM LEVEL 140 MMOL/L (136-145); TOTAL PROTEIN 6.9 G/DL (5.7-8.2)
[2022-09-25 20:19] LABS: RSV AMPLIFICATION NEGATIVE (NEGATIVE); THYROID STIMULATING HORMONE 1.957 uIU/ML (0.55-4.78)
[2022-09-26] MEDS ORDERED: TRAZ-257 PO (11:29)
[2022-09-26] MEDS ORDERED: HALO5TAB33 PO (11:29)
[2022-09-26] MEDS ORDERED: NICO2GUM MT (11:29)
[2022-09-26] MEDS ORDERED: METF500T13 PO (11:29)
[2022-09-26] MEDS ORDERED: CHLO100T30 PO (11:29)
[2022-09-26] MEDS ORDERED: BENZ-52 PO (11:29)
[2022-09-26] MEDS ORDERED: ZOLO100T PO ×2 (11:29→11:56)
[2022-09-26] MEDS ORDERED: HOME MED LIST COMPLETE! XX SCH (11:30)
[2022-09-26] MEDS ORDERED: traZODone 100 MG TAB PO PRN (11:50)
[2022-09-26] MEDS ORDERED: hydrOXYzine 50 MG TAB PO PRN (11:50)
[2022-09-26] MEDS ORDERED: NICOTINE POLACRILEX 2 MG GUM PO PRN (11:50)
[2022-09-26] MEDS ORDERED: metFORMIN (GLUCOPHAGE) 500MG TAB PO SCH (21:00)
[2022-09-26] MEDS ORDERED: BENZTROPINE 1 MG TAB PO SCH (21:00)
[2022-09-27] MEDS ORDERED: HALO50AM INJ (22:55)
== END 2022-09-26 16:04 | disposition home or self-care (01) ==
LOC: EDBD 17:58 → M ED 17:58
DX: F43.21 Adjustment disorder with depressed mood (principal); E66.9 Obesity, unspecified

== ENCOUNTER 2022-09-27 22:03 | Emergency (ER) | payer BC, MEDICAID ==
[~2022-09-27] VITALS: Ht 157.5 cm; Wt 103.6 kg
[~2022-09-27 22:03] MED LIST changes: +NICO2GUM MT
[2022-09-27 22:25] LABS: HEMATOCRIT 39.4 % (36.0-47.0); HEMOGLOBIN 12.8 g/dl (12.0-15.5); MEAN CORPUSCULAR HEMOGLOBIN 26.1 pg (27.0-33.0); MEAN CORPUSCULAR HGB CONC 32.5 g/dl (32.0-36.5); MEAN CORPUSCULAR VOLUME 80.4 fl (80.0-96.0); PLATELET COUNT, AUTOMATED 424 10^3/uL (150-450); WHITE BLOOD COUNT 11.1 10^3/uL (4.0-10.0)
[2022-09-27 22:51] LABS: AMPHETAMINES LEVEL URINE NEGATIVE (NEGATIVE); BARBITURATES URINE NEGATIVE (NEGATIVE); BENZODIAZEPINES URINE NEGATIVE (NEGATIVE); COCAINE METABOLITE URINE NEGATIVE (NEGATIVE); METHADONE URINE NEGATIVE (NEGATIVE); OPIATES URINE NEGATIVE (NEGATIVE); PHENCYCLIDINE URINE NEGATIVE (NEGATIVE)
[2022-09-27 22:52] LABS: CANNABINOIDS URINE NEGATIVE (NEGATIVE)
[2022-09-27 22:55] LABS: SALICYLATE LEVEL < 3.0 MG/DL (<30)
[2022-09-27] MEDS ORDERED: HALO50AM INJ (22:55)
[2022-09-27 22:56] LABS: ACETAMINOPHEN LEVEL < 2.0 UG/ML (10.0-20.0); BILIRUBIN,DIRECT < 0.1 MG/DL (<0.4)
[2022-09-27 22:58] LABS: THYROID STIMULATING HORMONE 4.052 uIU/ML (0.55-4.78)
[2022-09-27 23:00] LABS: RSV AMPLIFICATION NEGATIVE (NEGATIVE)
[2022-09-27] MEDS ORDERED: HOME MED LIST COMPLETE! XX SCH (23:00)
[2022-09-27 23:41] LABS: ALBUMIN 3.9 G/DL (3.2-5.2); ALKALINE PHOSPHATASE 74 U/L (46-116); ALT/SGPT 19 U/L (7.0-40); AST/SGOT 20 U/L (<34); BILIRUBIN,TOTAL 0.2 MG/DL (0.3-1.2); BLOOD UREA NITROGEN 10 MG/DL (9-23); CALCIUM LEVEL 9.3 MG/DL (8.5-10.1); CARBON DIOXIDE LEVEL 20 MMOL/L (20-31); CHLORIDE LEVEL 106 MMOL/L (98-107); CREATININE FOR GFR 0.68 MG/DL (0.55-1.30); GLOMERULAR FILTRATION RATE > 60.0 (>60); GLUCOSE, FASTING 120 MG/DL (60-100); POTASSIUM SERUM 4.2 MMOL/L (3.5-5.1); SODIUM LEVEL 139 MMOL/L (136-145); TOTAL PROTEIN 7.6 G/DL (5.7-8.2)
[2022-09-27 23:51] LABS: ETHYL ALCOHOL (ETHANOL) 0.003 % (0.000-0.010)
[2022-09-28] MEDS ORDERED: traZODone 100 MG TAB PO ONE (00:15)
[2022-09-28] MEDS ORDERED: MAALOX 30 ML SUSP *UDC PO ONE (00:15)
[2022-09-28 01:18] LABS: HCG, SERUM QUALITATIVE NEGATIVE (NEGATIVE)
[2022-09-28 15:01] VITALS: BP 131/79
== END 2022-09-28 16:02 | disposition home or self-care (01) ==
LOC: M ED 22:03
DX: F31.9 Bipolar disorder, unspecified (principal); F63.81 Intermittent explosive disorder; F60.3 Borderline personality disorder; F17.200 Nicotine dependence, unspecified, uncomplicated

== ENCOUNTER 2022-09-29 20:55 | Emergency (ER) | payer BC, MEDICAID ==
[~2022-09-29] VITALS: Ht 167.6 cm; Wt 132.3 kg
[2022-09-29 20:55] VITALS: BP 125/88
== END 2022-09-29 21:35 | disposition left against medical advice (07) ==
LOC: M ED 20:55
DX: Z53.21 Procedure and treatment not carried out due to patient leaving prior to being seen by health care provider (principal)

== ENCOUNTER 2022-09-29 22:26 | Emergency (ER) | payer BC, MEDICAID ==
[~2022-09-29] VITALS: Ht 167.6 cm; Wt 132.0 kg
[2022-09-29 22:26] VITALS: BP 158/80
== END 2022-09-29 23:09 | disposition left against medical advice (07) ==
LOC: M ED 22:26
DX: Z53.21 Procedure and treatment not carried out due to patient leaving prior to being seen by health care provider (principal)

== ENCOUNTER 2022-10-01 11:26 | Inpatient (IN) | payer BC, MEDICAID ==
[~2022-10-01] VITALS: Ht 167.6 cm; Wt 128.0 kg
[~2022-10-01 11:26] MED LIST changes: +HALO50AM IM
[2022-10-01] MEDS ORDERED: CHARCOAL ACTIVATED LIQUID 25GM/120ML BTL PO ONE (11:35)
[2022-10-01 12:02] LABS: BASO % 0.4 % (0.0-1.0); EOS # 0.1 10^3/uL (0.0-0.5); EOS % 0.9 % (0.0-3.0); HEMATOCRIT 39.9 % (36.0-47.0); HEMOGLOBIN 12.2 g/dl (12.0-15.5); LYMPH # 2.4 10^3/uL (1.5-5.0); MEAN CORPUSCULAR HEMOGLOBIN 25.3 pg (27.0-33.0); MEAN CORPUSCULAR HGB CONC 30.6 g/dl (32.0-36.5); MEAN CORPUSCULAR VOLUME 82.8 fl (80.0-96.0); MONO # 0.4 10^3/uL (0.0-0.8); MONO % 4.5 % (2.0-8.0); NEUTROPHILS # 4.9 10^3/uL (1.5-8.5); NEUTROPHILS % 62.9 % (36.0-66.0); PLATELET COUNT, AUTOMATED 335 10^3/uL (150-450); RED BLOOD COUNT 4.82 10^6/uL (4.00-5.40); WHITE BLOOD COUNT 7.8 10^3/uL (4.0-10.0)
[2022-10-01 12:34] LABS: ETHYL ALCOHOL (ETHANOL) 0.007 % (0.000-0.010)
[2022-10-01 12:35] LABS: ACETAMINOPHEN LEVEL < 2.0 UG/ML (10.0-20.0); BILIRUBIN,DIRECT 0.1 MG/DL (<0.4)
[2022-10-01 12:36] LABS: SALICYLATE LEVEL < 3.0 MG/DL (<30)
[2022-10-01 12:41] LABS: ALBUMIN 3.2 G/DL (3.2-5.2); ALKALINE PHOSPHATASE 66 U/L (46-116); ALT/SGPT 18 U/L (7.0-40); AST/SGOT 23 U/L (<34); BILIRUBIN,TOTAL 0.4 MG/DL (0.3-1.2); BLOOD UREA NITROGEN 7 MG/DL (9-23); CALCIUM LEVEL 8.8 MG/DL (8.5-10.1); CARBON DIOXIDE LEVEL 28 MMOL/L (20-31); CHLORIDE LEVEL 104 MMOL/L (98-107); CREATININE FOR GFR 0.72 MG/DL (0.55-1.30); GLOMERULAR FILTRATION RATE > 60.0 (>60); GLUCOSE, FASTING 91 MG/DL (60-100); POTASSIUM SERUM 4.2 MMOL/L (3.5-5.1); SODIUM LEVEL 138 MMOL/L (136-145); TOTAL PROTEIN 6.6 G/DL (5.7-8.2)
[2022-10-01 12:49] LABS: CPK CREATINE PHOSPHOKINASE 114 U/L (34-145)
[2022-10-01 12:55] LABS: HCG, SERUM QUALITATIVE NEGATIVE (NEGATIVE)
[2022-10-01] MEDS ORDERED: LORazepam 2 MG/ML VIAL IM STA (13:07)
[2022-10-01 13:31] LABS: AMPHETAMINES LEVEL URINE NEGATIVE (NEGATIVE); BARBITURATES URINE NEGATIVE (NEGATIVE); BENZODIAZEPINES URINE NEGATIVE (NEGATIVE); COCAINE METABOLITE URINE NEGATIVE (NEGATIVE)
[2022-10-01 13:32] LABS: CANNABINOIDS URINE NEGATIVE (NEGATIVE); METHADONE URINE NEGATIVE (NEGATIVE); OPIATES URINE NEGATIVE (NEGATIVE); PHENCYCLIDINE URINE NEGATIVE (NEGATIVE)
[2022-10-01 14:06] LABS: THYROID STIMULATING HORMONE 0.939 uIU/ML (0.55-4.78)
[2022-10-01] MEDS ORDERED: ACETAMINOPHEN 500 MG TAB PO ONE (18:55)
[2022-10-01] MEDS ORDERED: traZODone 50 MG TAB PO PRN (19:15)
[2022-10-01] MEDS ORDERED: MOM 30ML SUSPENSION UDC PO PRN (19:15)
[2022-10-01] MEDS ORDERED: MAALOX 30 ML SUSP *UDC PO PRN (19:15)
[2022-10-01] MEDS ORDERED: PANT40TA29 PO (20:03)
[2022-10-01] MEDS ORDERED: HOME MED LIST COMPLETE! XX SCH (20:05)
[2022-10-01] MEDS: NICOTINE POLACRILEX 2 MG GUM PO PRN (21:05)
[2022-10-01 21:53] VITALS: BP 136/80
[2022-10-02] MEDS ORDERED: NICOTINE 21MG/24HR 1 EA TRANSDERMAL TD SCH (09:00)
[2022-10-02] MEDS: metFORMIN (GLUCOPHAGE) 500MG TAB PO SCH ×2 (12:00→20:01)
[2022-10-02] MEDS: hydrOXYzine 50 MG TAB PO PRN ×2 (12:00→20:01)
[2022-10-02] MEDS: SERTRALINE 100 MG TAB PO SCH (12:00)
[2022-10-02] MEDS: PANTOPRAZOLE 40MG TAB (PROTONIX) PO SCH (12:01)
[2022-10-02] MEDS: NICOTINE POLACRILEX 2 MG GUM PO PRN ×2 (12:01→18:05)
[2022-10-02 12:04] LABS: CHOLESTEROL LEVEL 151 MG/DL (<200); CHOLESTEROL RISK RATIO 3.25 (<5); HDL CHOLESTEROL 46.4 MG/DL (>40); LDL CHOLESTEROL 79.2 MG/DL (<100); NON-HDL-C 105 MG/DL; TRIGLYCERIDES LEVEL 127 MG/DL (<150)
[2022-10-02 12:58] LABS: HEMOGLOBIN A1c 5.3 % (4.0-6.0)
[2022-10-02] MEDS: BENZTROPINE 1 MG TAB PO SCH (20:01)
[2022-10-03] MEDS: NICOTINE POLACRILEX 2 MG GUM PO PRN ×3 (07:54→19:42)
[2022-10-03] MEDS: PANTOPRAZOLE 40MG TAB (PROTONIX) PO SCH (08:18)
[2022-10-03] MEDS: SERTRALINE 100 MG TAB PO SCH (08:19)
[2022-10-03] MEDS: metFORMIN (GLUCOPHAGE) 500MG TAB PO SCH ×2 (08:19→20:39)
[2022-10-03] MEDS: buPROPion **XL** TABLET 150MG (WELLBUTRIN XL) PO SCH (09:00)
[2022-10-03] MEDS ORDERED: HALOPERIDOL DECANOATE 100 MG/ML 1ML VIAL IM ONE (09:00)
[2022-10-03 18:32] VITALS: BP 130/58
[2022-10-03] MEDS: ACETAMINOPHEN TAB 650MG DOSE (2X325MG) PO PRN (19:42)
[2022-10-03] MEDS: traZODone 50 MG TAB PO PRN (20:39)
[2022-10-03] MEDS: hydrOXYzine 50 MG TAB PO PRN (20:40)
[2022-10-03] MEDS: BENZTROPINE 1 MG TAB PO SCH (20:40)
[2022-10-04] MEDS: NICOTINE POLACRILEX 2 MG GUM PO PRN ×3 (11:50→21:13)
[2022-10-04] MEDS: metFORMIN (GLUCOPHAGE) 500MG TAB PO SCH ×2 (11:50→20:05)
[2022-10-04] MEDS: SERTRALINE 100 MG TAB PO SCH (11:51)
[2022-10-04] MEDS: buPROPion **XL** TABLET 150MG (WELLBUTRIN XL) PO SCH (11:51)
[2022-10-04] MEDS: PANTOPRAZOLE 40MG TAB (PROTONIX) PO SCH (11:51)
[2022-10-04 18:11] VITALS: BP 116/72
[2022-10-04] MEDS: BENZTROPINE 1 MG TAB PO SCH (20:05)
[2022-10-04] MEDS: hydrOXYzine 50 MG TAB PO PRN (20:05)
[2022-10-04] MEDS: traZODone 50 MG TAB PO PRN (20:05)
[2022-10-04] MEDS: ACETAMINOPHEN TAB 650MG DOSE (2X325MG) PO PRN (21:29)
[2022-10-05] MEDS: metFORMIN (GLUCOPHAGE) 500MG TAB PO SCH ×2 (09:10→19:57)
[2022-10-05] MEDS: SERTRALINE 100 MG TAB PO SCH (09:10)
[2022-10-05] MEDS: buPROPion **XL** TABLET 150MG (WELLBUTRIN XL) PO SCH (09:10)
[2022-10-05] MEDS: PANTOPRAZOLE 40MG TAB (PROTONIX) PO SCH (09:10)
[2022-10-05] MEDS: NICOTINE POLACRILEX 2 MG GUM PO PRN ×3 (09:12→18:49)
[2022-10-05 16:23] VITALS: BP 114/74
[2022-10-05] MEDS: ACETAMINOPHEN TAB 650MG DOSE (2X325MG) PO PRN (19:26)
[2022-10-05] MEDS: BENZTROPINE 1 MG TAB PO SCH (19:57)
[2022-10-05] MEDS: hydrOXYzine 50 MG TAB PO PRN (22:20)
[2022-10-05] MEDS: traZODone 50 MG TAB PO PRN (22:20)
[2022-10-06] MEDS ORDERED: BUPR150T12 PO ×2 (08:31→10:08)
[2022-10-06] MEDS ORDERED: ZOLO100T PO ×2 (08:31→10:07)
[2022-10-06] MEDS ORDERED: HALOPERIDOL DECANOATE 100 MG/ML 1ML VIAL IM SCH (09:00)
[2022-10-06] MEDS: metFORMIN (GLUCOPHAGE) 500MG TAB PO SCH (09:34)
[2022-10-06] MEDS: PANTOPRAZOLE 40MG TAB (PROTONIX) PO SCH (09:34)
[2022-10-06] MEDS: buPROPion **XL** TABLET 150MG (WELLBUTRIN XL) PO SCH (09:34)
[2022-10-06] MEDS: SERTRALINE 100 MG TAB PO SCH (09:34)
[2022-10-06] MEDS: NICOTINE POLACRILEX 2 MG GUM PO PRN (09:36)
== END 2022-10-06 12:05 | disposition home or self-care (01) | DRG 758 ==
LOC: EDBD 11:26 → M ED 11:26 → M ED INP 19:13 → M PSY 20:21
PROVIDERS: ADMIT Psychiatry & Neurology Psychiatry; ATTEND Psychiatry & Neurology Psychiatry
DX: F63.81 Intermittent explosive disorder (principal); E88.81 Metabolic syndrome and other insulin resistance; E66.01 Morbid (severe) obesity due to excess calories; Z68.42 Body mass index [BMI] 45.0-49.9, adult; F31.9 Bipolar disorder, unspecified; F60.3 Borderline personality disorder; F17.200 Nicotine dependence, unspecified, uncomplicated; R73.03 Prediabetes; F12.10 Cannabis abuse, uncomplicated; F41.9 Anxiety disorder, unspecified; F19.10 Other psychoactive substance abuse, uncomplicated; K21.9 Gastro-esophageal reflux disease without esophagitis; J45.909 Unspecified asthma, uncomplicated; Z81.8 Family history of other mental and behavioral disorders; Z59.01 Sheltered homelessness; Z91.51 Personal history of suicidal behavior; Z79.84 Long term (current) use of oral hypoglycemic drugs; Z79.899 Other long term (current) drug therapy; Z90.49 Acquired absence of other specified parts of digestive tract

== ENCOUNTER 2022-10-12 19:12 | Emergency (ER) | payer BC, MEDICAID ==
[~2022-10-12 19:12] MED LIST changes: +BUPR150T12 PO
[2022-10-12] MEDS ORDERED: NEOSPORIN OINT 0.9 GM PKT TOP ONE (19:50)
[2022-10-12] MEDS ORDERED: LORazepam 2 MG TAB PO ONE (19:50)
[2022-10-12 20:18] LABS: BASO % 0.4 % (0.0-1.0); EOS # 0.1 10^3/uL (0.0-0.5); EOS % 1.2 % (0.0-3.0); HEMATOCRIT 40.9 % (36.0-47.0); HEMOGLOBIN 12.9 g/dl (12.0-15.5); LYMPH # 2.9 10^3/uL (1.5-5.0); LYMPH % 30.8 % (24.0-44.0); MEAN CORPUSCULAR HEMOGLOBIN 25.4 pg (27.0-33.0); MEAN CORPUSCULAR HGB CONC 31.5 g/dl (32.0-36.5); MEAN CORPUSCULAR VOLUME 80.7 fl (80.0-96.0); MONO # 0.5 10^3/uL (0.0-0.8); MONO % 4.9 % (2.0-8.0); NEUTROPHILS # 5.9 10^3/uL (1.5-8.5); NEUTROPHILS % 62.3 % (36.0-66.0); PLATELET COUNT, AUTOMATED 414 10^3/uL (150-450); RED BLOOD COUNT 5.07 10^6/uL (4.00-5.40); WHITE BLOOD COUNT 9.5 10^3/uL (4.0-10.0)
[2022-10-12 20:41] LABS: AMPHETAMINES LEVEL URINE NEGATIVE (NEGATIVE); BARBITURATES URINE NEGATIVE (NEGATIVE); BENZODIAZEPINES URINE NEGATIVE (NEGATIVE); COCAINE METABOLITE URINE NEGATIVE (NEGATIVE); METHADONE URINE NEGATIVE (NEGATIVE); OPIATES URINE NEGATIVE (NEGATIVE); PHENCYCLIDINE URINE NEGATIVE (NEGATIVE)
[2022-10-12 20:42] LABS: CANNABINOIDS URINE NEGATIVE (NEGATIVE)
[2022-10-12 20:43] LABS: ETHYL ALCOHOL (ETHANOL) 0.005 % (0.000-0.010)
[2022-10-12 20:45] LABS: ACETAMINOPHEN LEVEL < 2.0 UG/ML (10.0-20.0); ALBUMIN 3.6 G/DL (3.2-5.2); ALKALINE PHOSPHATASE 72 U/L (46-116); ALT/SGPT 17 U/L (7.0-40); AST/SGOT 20 U/L (<34); BILIRUBIN,DIRECT < 0.1 MG/DL (<0.4); BILIRUBIN,TOTAL 0.2 MG/DL (0.3-1.2); BLOOD UREA NITROGEN 9 MG/DL (9-23); CALCIUM LEVEL 9.3 MG/DL (8.5-10.1); CARBON DIOXIDE LEVEL 21 MMOL/L (20-31); CHLORIDE LEVEL 105 MMOL/L (98-107); CREATININE FOR GFR 0.73 MG/DL (0.55-1.30); GLOMERULAR FILTRATION RATE > 60.0 (>60); GLUCOSE, FASTING 92 MG/DL (60-100); POTASSIUM SERUM 4.4 MMOL/L (3.5-5.1); SALICYLATE LEVEL < 3.0 MG/DL (<30); SODIUM LEVEL 138 MMOL/L (136-145); TOTAL PROTEIN 7.1 G/DL (5.7-8.2)
[2022-10-12 20:48] LABS: THYROID STIMULATING HORMONE 1.409 uIU/ML (0.55-4.78)
[2022-10-12 20:56] LABS: HCG, SERUM QUALITATIVE NEGATIVE (NEGATIVE)
[2022-10-13 12:54] VITALS: BP 140/84
== END 2022-10-13 13:11 | disposition home or self-care (01) ==
LOC: EDBD 19:12 → M ED 19:12
DX: F32.A Depression, unspecified (principal); R45.851 Suicidal ideations; E11.9 Type 2 diabetes mellitus without complications; J45.909 Unspecified asthma, uncomplicated; F17.200 Nicotine dependence, unspecified, uncomplicated; Z79.4 Long term (current) use of insulin; Z79.899 Other long term (current) drug therapy

== ENCOUNTER 2022-10-16 19:21 | Inpatient (IN) | payer BC, MEDICAID ==
[~2022-10-16] VITALS: Ht 167.6 cm; Wt 128.0 kg
[2022-10-16 20:01] LABS: HEMATOCRIT 38.1 % (36.0-47.0); HEMOGLOBIN 12.3 g/dl (12.0-15.5); MEAN CORPUSCULAR HEMOGLOBIN 26.5 pg (27.0-33.0); MEAN CORPUSCULAR HGB CONC 32.3 g/dl (32.0-36.5); MEAN CORPUSCULAR VOLUME 82.1 fl (80.0-96.0); PLATELET COUNT, AUTOMATED 417 10^3/uL (150-450); RED BLOOD COUNT 4.64 10^6/uL (4.00-5.40); WHITE BLOOD COUNT 10.9 10^3/uL (4.0-10.0)
[2022-10-16 20:27] LABS: AMPHETAMINES LEVEL URINE NEGATIVE (NEGATIVE); BARBITURATES URINE NEGATIVE (NEGATIVE); BENZODIAZEPINES URINE NEGATIVE (NEGATIVE); COCAINE METABOLITE URINE NEGATIVE (NEGATIVE); METHADONE URINE NEGATIVE (NEGATIVE)
[2022-10-16 20:28] LABS: CANNABINOIDS URINE NEGATIVE (NEGATIVE); OPIATES URINE NEGATIVE (NEGATIVE); PHENCYCLIDINE URINE NEGATIVE (NEGATIVE)
[2022-10-16 20:32] LABS: ETHYL ALCOHOL (ETHANOL) 0.003 % (0.000-0.010)
[2022-10-16 20:33] LABS: ACETAMINOPHEN LEVEL < 2.0 UG/ML (10.0-20.0); SALICYLATE LEVEL < 3.0 MG/DL (<30)
[2022-10-16 20:34] LABS: ALBUMIN 3.7 G/DL (3.2-5.2); ALKALINE PHOSPHATASE 70 U/L (46-116); ALT/SGPT 18 U/L (7.0-40); AST/SGOT 19 U/L (<34); BILIRUBIN,DIRECT < 0.1 MG/DL (<0.4); BILIRUBIN,TOTAL 0.2 MG/DL (0.3-1.2); BLOOD UREA NITROGEN 11 MG/DL (9-23); CALCIUM LEVEL 9.6 MG/DL (8.5-10.1); CARBON DIOXIDE LEVEL 23 MMOL/L (20-31); CHLORIDE LEVEL 108 MMOL/L (98-107); CREATININE FOR GFR 0.72 MG/DL (0.55-1.30); GLOMERULAR FILTRATION RATE > 60.0 (>60); GLUCOSE, FASTING 101 MG/DL (60-100); POTASSIUM SERUM 3.8 MMOL/L (3.5-5.1); SODIUM LEVEL 143 MMOL/L (136-145); TOTAL PROTEIN 7.1 G/DL (5.7-8.2)
[2022-10-16 20:56] LABS: RSV AMPLIFICATION NEGATIVE (NEGATIVE)
[2022-10-17] MEDS ORDERED: NICOTINE POLACRILEX 2 MG GUM PO ONE ×2 (12:35→15:50)
[2022-10-17] MEDS ORDERED: ZOLO100T PO (16:19)
[2022-10-17] MEDS ORDERED: BUPR150T12 PO (16:19)
[2022-10-17] MEDS ORDERED: HOME MED LIST COMPLETE! XX SCH (16:20)
[2022-10-17] MEDS ORDERED: MAALOX 30 ML SUSP *UDC PO PRN (18:35)
[2022-10-17] MEDS ORDERED: traZODone 100 MG TAB PO PRN (18:35)
[2022-10-17] MEDS ORDERED: NICOTINE 21MG/24HR 1 EA TRANSDERMAL TD PRN (18:35)
[2022-10-17] MEDS ORDERED: hydrOXYzine 50 MG TAB PO PRN (18:35)
[2022-10-17] MEDS ORDERED: ACETAMINOPHEN TAB 650MG DOSE (2X325MG) PO PRN (18:35)
[2022-10-17] MEDS ORDERED: MOM 30ML SUSPENSION UDC PO PRN (18:35)
[2022-10-17] MEDS ORDERED: ACETAMINOPHEN TAB 650MG DOSE (2X325MG) PO ONE (18:40)
[2022-10-17] MEDS: metFORMIN (GLUCOPHAGE) 500MG TAB PO SCH (19:00)
[2022-10-17 22:08] VITALS: BP 132/64
[2022-10-17] MEDS: BENZTROPINE 1 MG TAB PO SCH (22:20)
[2022-10-17] MEDS: SERTRALINE 100 MG TAB PO SCH (22:20)
[2022-10-18 06:43] VITALS: BP 131/62
[2022-10-18] MEDS: metFORMIN (GLUCOPHAGE) 500MG TAB PO SCH ×2 (09:06→17:23)
[2022-10-18] MEDS: PANTOPRAZOLE 40MG TAB (PROTONIX) PO SCH (09:06)
[2022-10-18] MEDS: buPROPion **XL** TABLET 150MG (WELLBUTRIN XL) PO SCH (09:06)
[2022-10-18] MEDS: NICOTINE POLACRILEX 2 MG GUM PO PRN ×2 (10:26→17:24)
[2022-10-18] MEDS ORDERED: ALBUTEROL SULFATE 2.5MG/0.5ML INH NEB SOLN INH PRN (12:55)
[2022-10-18 18:00] VITALS: BP 129/67
[2022-10-18] MEDS ORDERED: PILL CUTTER 1 EACH XX PRN (18:05)
[2022-10-18] MEDS ORDERED: ONDANSETRON 4MG ORAL DISINTEGRATING TAB PO PRN (18:05)
[2022-10-19] MEDS: BENZTROPINE 1 MG TAB PO SCH ×2 (03:11→21:00)
[2022-10-19] MEDS: SERTRALINE 100 MG TAB PO SCH ×2 (03:12→21:00)
[2022-10-19] MEDS: metFORMIN (GLUCOPHAGE) 500MG TAB PO SCH ×2 (08:00→18:00)
[2022-10-19] MEDS: NICOTINE POLACRILEX 2 MG GUM PO PRN (08:53)
[2022-10-19] MEDS: PANTOPRAZOLE 40MG TAB (PROTONIX) PO SCH (09:00)
[2022-10-19] MEDS: buPROPion **XL** TABLET 150MG (WELLBUTRIN XL) PO SCH (09:00)
[2022-10-19] MEDS ORDERED: LORazepam 2 MG/ML VIAL IM STA (13:08)
[2022-10-19] MEDS ORDERED: HALOPERIDOL 5MG/ML 1ML VIAL IM STA (13:08)
[2022-10-19] MEDS ORDERED: diphenhydrAMINE 50MG/ML VIAL IM STA (13:08)
[2022-10-19] MEDS ORDERED: chlorproMAZINE INJ 50MG/2ML AMP IM STA (13:23)
[2022-10-20] MEDS: buPROPion **XL** TABLET 150MG (WELLBUTRIN XL) PO SCH (09:18)
[2022-10-20] MEDS: PANTOPRAZOLE 40MG TAB (PROTONIX) PO SCH (09:18)
[2022-10-20] MEDS: NICOTINE POLACRILEX 2 MG GUM PO PRN (09:18)
[2022-10-20] MEDS: metFORMIN (GLUCOPHAGE) 500MG TAB PO SCH (09:18)
[2022-10-20] MEDS ORDERED: HALO50AM IM (10:46)
[2022-10-20] MEDS ORDERED: NICO2GUM PO (10:46)
[2022-10-20] MEDS ORDERED: BENZ-52 PO (10:51)
[2022-10-20] MEDS ORDERED: CHLO100T30 PO (10:51)
[2022-10-20] MEDS ORDERED: HALO5TAB33 PO (10:51)
[2022-10-20] MEDS ORDERED: ZOLO100T PO (10:51)
[2022-10-20] MEDS ORDERED: BUPR150T12 PO (10:51)
[2022-10-20] MEDS ORDERED: METF500T13 PO (10:51)
== END 2022-10-20 11:58 | disposition home or self-care (01) | DRG 758 ==
LOC: M ED 19:36 → M ED INP 10-17 18:35 → M PSY 10-17 22:02
PROVIDERS: ADMIT Student in an Organized Health Care Education/Training Program; ATTEND Student in an Organized Health Care Education/Training Program
DX: F63.81 Intermittent explosive disorder (principal); F60.3 Borderline personality disorder; F60.2 Antisocial personality disorder; F31.9 Bipolar disorder, unspecified; F17.210 Nicotine dependence, cigarettes, uncomplicated; F12.10 Cannabis abuse, uncomplicated; E11.9 Type 2 diabetes mellitus without complications; J45.909 Unspecified asthma, uncomplicated; R45.851 Suicidal ideations; Z59.00 Homelessness unspecified; Z20.822 Contact with and (suspected) exposure to COVID-19; Z79.84 Long term (current) use of oral hypoglycemic drugs; Z79.899 Other long term (current) drug therapy; K21.9 Gastro-esophageal reflux disease without esophagitis; E66.01 Morbid (severe) obesity due to excess calories; Z90.49 Acquired absence of other specified parts of digestive tract; Z71.6 Tobacco abuse counseling; Z68.42 Body mass index [BMI] 45.0-49.9, adult

== ENCOUNTER 2022-10-21 03:16 | Emergency (ER) | payer BC, MEDICAID ==
[~2022-10-21] VITALS: Ht 167.6 cm; Wt 128.3 kg
[2022-10-21 10:09] VITALS: BP 141/90
== END 2022-10-21 10:15 | disposition home or self-care (01) ==
LOC: M ED 03:16
DX: S83.92XA Sprain of unspecified site of left knee, initial encounter (principal); M25.462 Effusion, left knee; X50.1XXA Overexertion from prolonged static or awkward postures, initial encounter; Y92.019 Unspecified place in single-family (private) house as the place of occurrence of the external cause; E11.9 Type 2 diabetes mellitus without complications; J45.909 Unspecified asthma, uncomplicated; K21.9 Gastro-esophageal reflux disease without esophagitis; F41.8 Other specified anxiety disorders

== ENCOUNTER 2022-10-22 17:39 | Emergency (ER) | payer BC, MEDICAID | END 2022-10-22 19:30 | disposition left against medical advice (07) | LOC: M ED 17:39 → EDBD 17:39 → M ED 19:30 | DX: Z53.21 Procedure and treatment not carried out due to patient leaving prior to being seen by health care provider (principal) ==

== ENCOUNTER 2022-10-22 19:43 | Emergency (ER) | payer BC, MEDICAID ==
[~2022-10-22] VITALS: Ht 167.6 cm; Wt 128.0 kg
[2022-10-22 20:42] LABS: HEMATOCRIT 36.9 % (36.0-47.0); HEMOGLOBIN 11.6 g/dl (12.0-15.5); MEAN CORPUSCULAR HEMOGLOBIN 26.1 pg (27.0-33.0); MEAN CORPUSCULAR HGB CONC 31.4 g/dl (32.0-36.5); MEAN CORPUSCULAR VOLUME 83.1 fl (80.0-96.0); PLATELET COUNT, AUTOMATED 346 10^3/uL (150-450); RED BLOOD COUNT 4.44 10^6/uL (4.00-5.40); WHITE BLOOD COUNT 7.8 10^3/uL (4.0-10.0)
[2022-10-22 20:50] LABS: AMPHETAMINES LEVEL URINE NEGATIVE (NEGATIVE); BARBITURATES URINE NEGATIVE (NEGATIVE); BENZODIAZEPINES URINE NEGATIVE (NEGATIVE)
[2022-10-22 20:51] LABS: CANNABINOIDS URINE NEGATIVE (NEGATIVE); COCAINE METABOLITE URINE NEGATIVE (NEGATIVE); METHADONE URINE NEGATIVE (NEGATIVE); OPIATES URINE NEGATIVE (NEGATIVE); PHENCYCLIDINE URINE NEGATIVE (NEGATIVE)
[2022-10-22 21:10] LABS: ETHYL ALCOHOL (ETHANOL) 0.003 % (0.000-0.010)
[2022-10-22 21:11] LABS: ACETAMINOPHEN LEVEL < 2.0 UG/ML (10.0-20.0); ALBUMIN 3.5 G/DL (3.2-5.2); ALKALINE PHOSPHATASE 67 U/L (46-116); ALT/SGPT 19 U/L (7.0-40); AST/SGOT 20 U/L (<34); BILIRUBIN,DIRECT 0.1 MG/DL (<0.4); BILIRUBIN,TOTAL 0.3 MG/DL (0.3-1.2); BLOOD UREA NITROGEN 11 MG/DL (9-23); CALCIUM LEVEL 9.2 MG/DL (8.5-10.1); CARBON DIOXIDE LEVEL 27 MMOL/L (20-31); CHLORIDE LEVEL 105 MMOL/L (98-107); CREATININE FOR GFR 0.71 MG/DL (0.55-1.30); GLOMERULAR FILTRATION RATE > 60.0 (>60); GLUCOSE, FASTING 108 MG/DL (60-100); POTASSIUM SERUM 3.7 MMOL/L (3.5-5.1); SALICYLATE LEVEL < 3.0 MG/DL (<30); SODIUM LEVEL 141 MMOL/L (136-145); TOTAL PROTEIN 6.7 G/DL (5.7-8.2)
[2022-10-22 21:14] LABS: THYROID STIMULATING HORMONE 1.407 uIU/ML (0.55-4.78)
[2022-10-22 21:17] LABS: HCG, SERUM QUALITATIVE NEGATIVE (NEGATIVE)
[2022-10-22 22:26] LABS: GC DNA AMPLIFICATION NEGATIVE (NEGATIVE)
[2022-10-22 22:28] VITALS: BP 128/60
== END 2022-10-22 22:41 | disposition home or self-care (01) ==
LOC: M ED 19:43
DX: F43.0 Acute stress reaction (principal); E11.9 Type 2 diabetes mellitus without complications; K21.9 Gastro-esophageal reflux disease without esophagitis; F31.9 Bipolar disorder, unspecified; F90.9 Attention-deficit hyperactivity disorder, unspecified type; F17.290 Nicotine dependence, other tobacco product, uncomplicated; Z79.899 Other long term (current) drug therapy

== ENCOUNTER 2022-10-24 15:11 | Emergency (ER) | payer BC, MEDICAID ==
[~2022-10-24] VITALS: Ht 167.6 cm; Wt 130.4 kg
[2022-10-24 15:48] LABS: BASO % 0.4 % (0.0-1.0); EOS # 0.1 10^3/uL (0.0-0.5); HEMATOCRIT 36.6 % (36.0-47.0); HEMOGLOBIN 11.4 g/dl (12.0-15.5); LYMPH # 2.3 10^3/uL (1.5-5.0); LYMPH % 32.7 % (24.0-44.0); MEAN CORPUSCULAR HEMOGLOBIN 25.8 pg (27.0-33.0); MEAN CORPUSCULAR HGB CONC 31.1 g/dl (32.0-36.5); MEAN CORPUSCULAR VOLUME 82.8 fl (80.0-96.0); MONO # 0.3 10^3/uL (0.0-0.8); MONO % 4.1 % (2.0-8.0); NEUTROPHILS # 4.4 10^3/uL (1.5-8.5); NEUTROPHILS % 61.5 % (36.0-66.0); PLATELET COUNT, AUTOMATED 345 10^3/uL (150-450); RED BLOOD COUNT 4.42 10^6/uL (4.00-5.40); WHITE BLOOD COUNT 7.1 10^3/uL (4.0-10.0)
[2022-10-24 16:15] LABS: ETHYL ALCOHOL (ETHANOL) 0.003 % (0.000-0.010)
[2022-10-24 16:17] LABS: ACETAMINOPHEN LEVEL < 2.0 UG/ML (10.0-20.0); ALBUMIN 3.6 G/DL (3.2-5.2); ALKALINE PHOSPHATASE 66 U/L (46-116); ALT/SGPT 13 U/L (7.0-40); AST/SGOT 20 U/L (<34); BILIRUBIN,DIRECT 0.2 MG/DL (<0.4); BILIRUBIN,TOTAL 0.4 MG/DL (0.3-1.2); BLOOD UREA NITROGEN 9 MG/DL (9-23); CALCIUM LEVEL 9.1 MG/DL (8.5-10.1); CARBON DIOXIDE LEVEL 28 MMOL/L (20-31); CHLORIDE LEVEL 103 MMOL/L (98-107); CPK CREATINE PHOSPHOKINASE 119 U/L (34-145); CREATININE FOR GFR 0.71 MG/DL (0.55-1.30); GLOMERULAR FILTRATION RATE > 60.0 (>60); GLUCOSE, FASTING 82 MG/DL (60-100); POTASSIUM SERUM 3.8 MMOL/L (3.5-5.1); SALICYLATE LEVEL < 3.0 MG/DL (<30); SODIUM LEVEL 138 MMOL/L (136-145); TOTAL PROTEIN 6.9 G/DL (5.7-8.2)
[2022-10-24 16:21] LABS: THYROID STIMULATING HORMONE 0.831 uIU/ML (0.55-4.78)
[2022-10-24 16:37] LABS: HCG, SERUM QUALITATIVE NEGATIVE (NEGATIVE)
[2022-10-24] MEDS ORDERED: ACETAMINOPHEN TAB 650MG DOSE (2X325MG) PO ONE (16:40)
[2022-10-24 18:40] LABS: AMPHETAMINES LEVEL URINE NEGATIVE (NEGATIVE); BARBITURATES URINE NEGATIVE (NEGATIVE); BENZODIAZEPINES URINE NEGATIVE (NEGATIVE); CANNABINOIDS URINE NEGATIVE (NEGATIVE); COCAINE METABOLITE URINE NEGATIVE (NEGATIVE); METHADONE URINE NEGATIVE (NEGATIVE); OPIATES URINE NEGATIVE (NEGATIVE); PHENCYCLIDINE URINE NEGATIVE (NEGATIVE)
[2022-10-24] MEDS ORDERED: HOME MED LIST COMPLETE! XX SCH (18:50)
[2022-10-25] MEDS ORDERED: traZODone 100 MG TAB PO PRN (08:15)
[2022-10-25] MEDS ORDERED: hydrOXYzine 50 MG TAB PO PRN (08:15)
[2022-10-25] MEDS: buPROPion **XL** TABLET 150MG (WELLBUTRIN XL) PO SCH (10:35)
[2022-10-25] MEDS: PANTOPRAZOLE 40MG TAB (PROTONIX) PO SCH (10:36)
[2022-10-25] MEDS ORDERED: LORazepam 2 MG/ML VIAL IM STA (10:59)
[2022-10-25] MEDS ORDERED: HALOPERIDOL 5MG/ML 1ML VIAL As Ordered ONE (11:17)
[2022-10-25] MEDS ORDERED: diphenhydrAMINE 50MG/ML VIAL As Ordered ONE (11:17)
[2022-10-25] MEDS ORDERED: diphenhydrAMINE 50MG/ML VIAL IM ONE (11:20)
[2022-10-25] MEDS ORDERED: HALOPERIDOL 5MG/ML 1ML VIAL IM ONE (11:20)
[2022-10-25] MEDS ORDERED: SERTRALINE HCL 50 MG TAB PO SCH (21:00)
[2022-10-25] MEDS ORDERED: BENZTROPINE 1 MG TAB PO SCH (21:00)
[2022-10-26] MEDS: PANTOPRAZOLE 40MG TAB (PROTONIX) PO SCH (09:34)
[2022-10-26] MEDS: buPROPion **XL** TABLET 150MG (WELLBUTRIN XL) PO SCH (09:35)
[2022-10-26 12:55] VITALS: BP 118/58
== END 2022-10-26 13:06 | disposition home or self-care (01) ==
LOC: EDBD 15:11 → M ED 15:48
DX: F31.9 Bipolar disorder, unspecified (principal); F60.9 Personality disorder, unspecified; E11.9 Type 2 diabetes mellitus without complications; J45.909 Unspecified asthma, uncomplicated; F17.200 Nicotine dependence, unspecified, uncomplicated; F12.10 Cannabis abuse, uncomplicated; Z79.899 Other long term (current) drug therapy
CPT/HCPCS: 80048; 80076; 80143; 80307; 82077; 82550; 84443; 84703; 85025; 87635; 93005; 93041; 94760; 96372; 99285; J2060

== ENCOUNTER 2022-10-27 01:06 | Emergency (ER) | payer BC, MEDICAID ==
[~2022-10-27] VITALS: Ht 167.6 cm; Wt 129.2 kg
[2022-10-27 02:38] LABS: APPEARANCE, URINE MANUAL CLEAR (CLEAR); BILIRUBIN, URINE MANUAL NEGATIVE (NEGATIVE); BLOOD URINE MANUAL NEGATIVE (NEGATIVE); COLOR, URINE MANUAL YELLOW (YELLOW); GLUCOSE, URINE (UA) MANUAL NEGATIVE (NEGATIVE); KETONE, URINE MANUAL NEGATIVE (NEGATIVE); NITRITE, URINE MANUAL NEGATIVE (NEGATIVE); PROTEIN, URINE MANUAL NEGATIVE (NEGATIVE); UROBILINOGEN, URINE MANUAL NORMAL (NORMAL)
[2022-10-27 02:40] LABS: LEUKOCYTE ESTERASE, URINE MAN NEGATIVE (NEGATIVE)
[2022-10-27 06:05] LABS: BASO % 0.4 % (0.0-1.0); EOS # 0.1 10^3/uL (0.0-0.5); EOS % 0.6 % (0.0-3.0); HEMATOCRIT 37.9 % (36.0-47.0); LYMPH # 2.7 10^3/uL (1.5-5.0); MEAN CORPUSCULAR HEMOGLOBIN 26.3 pg (27.0-33.0); MEAN CORPUSCULAR HGB CONC 31.7 g/dl (32.0-36.5); MEAN CORPUSCULAR VOLUME 82.9 fl (80.0-96.0); MONO # 0.5 10^3/uL (0.0-0.8); MONO % 4.7 % (2.0-8.0); NEUTROPHILS # 6.8 10^3/uL (1.5-8.5); NEUTROPHILS % 66.8 % (36.0-66.0); PLATELET COUNT, AUTOMATED 377 10^3/uL (150-450); RED BLOOD COUNT 4.57 10^6/uL (4.00-5.40); WHITE BLOOD COUNT 10.1 10^3/uL (4.0-10.0)
[2022-10-27 06:27] LABS: BILIRUBIN,DIRECT < 0.1 MG/DL (<0.4); HCG, SERUM QUALITATIVE NEGATIVE (NEGATIVE)
[2022-10-27 06:28] LABS: ALBUMIN 3.9 G/DL (3.2-5.2); ALKALINE PHOSPHATASE 69 U/L (46-116); ALT/SGPT 13 U/L (7.0-40); AST/SGOT 18 U/L (<34); BILIRUBIN,TOTAL 0.2 MG/DL (0.3-1.2); BLOOD UREA NITROGEN 9 MG/DL (9-23); CALCIUM LEVEL 9.3 MG/DL (8.5-10.1); CARBON DIOXIDE LEVEL 27 MMOL/L (20-31); CHLORIDE LEVEL 104 MMOL/L (98-107); CREATININE FOR GFR 0.72 MG/DL (0.55-1.30); GLOMERULAR FILTRATION RATE > 60.0 (>60); GLUCOSE, FASTING 95 MG/DL (60-100); SODIUM LEVEL 139 MMOL/L (136-145); TOTAL PROTEIN 7.4 G/DL (5.7-8.2)
[2022-10-27 06:33] VITALS: BP 134/70
== END 2022-10-27 09:18 | disposition home or self-care (01) ==
LOC: M ED 01:06
DX: S39.011A Strain of muscle, fascia and tendon of abdomen, initial encounter (principal); F17.200 Nicotine dependence, unspecified, uncomplicated; J45.909 Unspecified asthma, uncomplicated; F41.9 Anxiety disorder, unspecified; F90.9 Attention-deficit hyperactivity disorder, unspecified type; Z79.4 Long term (current) use of insulin; Z79.83 Long term (current) use of bisphosphonates; Z79.52 Long term (current) use of systemic steroids; Z79.899 Other long term (current) drug therapy

== ENCOUNTER 2022-10-27 13:49 | Emergency (ER) | payer BC, MEDICAID ==
[~2022-10-27] VITALS: Ht 167.6 cm; Wt 119.1 kg
[2022-10-27 13:58] VITALS: BP 131/66
[2022-10-27 14:33] LABS: HEMATOCRIT 37.2 % (36.0-47.0); HEMOGLOBIN 11.7 g/dl (12.0-15.5); MEAN CORPUSCULAR HEMOGLOBIN 26.1 pg (27.0-33.0); MEAN CORPUSCULAR HGB CONC 31.5 g/dl (32.0-36.5); PLATELET COUNT, AUTOMATED 366 10^3/uL (150-450); RED BLOOD COUNT 4.48 10^6/uL (4.00-5.40); WHITE BLOOD COUNT 8.3 10^3/uL (4.0-10.0)
[2022-10-27 15:10] LABS: ETHYL ALCOHOL (ETHANOL) 0.003 % (0.000-0.010)
[2022-10-27 15:11] LABS: ACETAMINOPHEN LEVEL < 2.0 UG/ML (10.0-20.0); BILIRUBIN,DIRECT < 0.1 MG/DL (<0.4)
[2022-10-27 15:12] LABS: SALICYLATE LEVEL < 3.0 MG/DL (<30)
[2022-10-27 15:13] LABS: THYROID STIMULATING HORMONE 2.381 uIU/ML (0.55-4.78)
[2022-10-27 15:31] LABS: HCG, SERUM QUALITATIVE NEGATIVE (NEGATIVE)
[2022-10-27 15:43] LABS: ALBUMIN 3.6 G/DL (3.2-5.2); ALKALINE PHOSPHATASE 65 U/L (46-116); ALT/SGPT 16 U/L (7.0-40); AST/SGOT 18 U/L (<34); BILIRUBIN,TOTAL 0.2 MG/DL (0.3-1.2); BLOOD UREA NITROGEN 8 MG/DL (9-23); CALCIUM LEVEL 9.3 MG/DL (8.5-10.1); CARBON DIOXIDE LEVEL 28 MMOL/L (20-31); CHLORIDE LEVEL 105 MMOL/L (98-107); GLOMERULAR FILTRATION RATE > 60.0 (>60); GLUCOSE, FASTING 88 MG/DL (60-100); POTASSIUM SERUM 4.1 MMOL/L (3.5-5.1); SODIUM LEVEL 140 MMOL/L (136-145); TOTAL PROTEIN 6.9 G/DL (5.7-8.2)
[2022-10-27 15:45] LABS: AMPHETAMINES LEVEL URINE NEGATIVE (NEGATIVE); BARBITURATES URINE NEGATIVE (NEGATIVE); BENZODIAZEPINES URINE NEGATIVE (NEGATIVE)
[2022-10-27 15:46] LABS: CANNABINOIDS URINE NEGATIVE (NEGATIVE); COCAINE METABOLITE URINE NEGATIVE (NEGATIVE); METHADONE URINE NEGATIVE (NEGATIVE); OPIATES URINE NEGATIVE (NEGATIVE); PHENCYCLIDINE URINE NEGATIVE (NEGATIVE)
== END 2022-10-27 16:09 | disposition home or self-care (01) ==
LOC: M ED 13:49
DX: F19.10 Other psychoactive substance abuse, uncomplicated (principal); E11.9 Type 2 diabetes mellitus without complications; K21.9 Gastro-esophageal reflux disease without esophagitis; F32.9 Major depressive disorder, single episode, unspecified; E66.9 Obesity, unspecified; J45.909 Unspecified asthma, uncomplicated; F41.9 Anxiety disorder, unspecified; F60.3 Borderline personality disorder; Z79.899 Other long term (current) drug therapy

== ENCOUNTER 2022-10-31 18:34 | Emergency (ER) | payer BC, MEDICAID ==
[~2022-10-31] VITALS: Ht 167.6 cm; Wt 130.0 kg
[2022-10-31 18:47] VITALS: BP 138/88
[2022-11-01] MEDS ORDERED: BUPR150T12 PO (06:13)
[2022-11-01] MEDS ORDERED: HALD50IN4 IM (06:13)
[2022-11-01] MEDS ORDERED: HALO5TAB33 PO (06:13)
[2022-11-01] MEDS ORDERED: CHLO100T30 PO (06:13)
[2022-11-01] MEDS ORDERED: METF500T13 PO (06:13)
[2022-11-01] MEDS ORDERED: SERT50TA29 PO (06:13)
[2022-11-01] MEDS ORDERED: BENZ-52 PO (06:13)
== END 2022-10-31 18:55 | disposition left against medical advice (07) ==
LOC: M ED 18:34
DX: Z53.21 Procedure and treatment not carried out due to patient leaving prior to being seen by health care provider (principal)

== ENCOUNTER 2022-10-31 22:52 | Emergency (ER) | payer BC, MEDICAID ==
[~2022-10-31] VITALS: Ht 167.6 cm; Wt 118.2 kg
[2022-10-31] MEDS ORDERED: NS 1,000 ML IV ONE (23:10)
[2022-10-31] MEDS ORDERED: CHARCOAL ACTIVATED LIQUID 25GM/120ML BTL PO ONE (23:10)
[2022-11-01 00:29] LABS: AMPHETAMINES LEVEL URINE NEGATIVE (NEGATIVE); BARBITURATES URINE NEGATIVE (NEGATIVE); BENZODIAZEPINES URINE NEGATIVE (NEGATIVE); CANNABINOIDS URINE NEGATIVE (NEGATIVE); COCAINE METABOLITE URINE NEGATIVE (NEGATIVE); METHADONE URINE NEGATIVE (NEGATIVE); OPIATES URINE NEGATIVE (NEGATIVE); PHENCYCLIDINE URINE NEGATIVE (NEGATIVE)
[2022-11-01 00:47] LABS: RSV AMPLIFICATION NEGATIVE (NEGATIVE)
[2022-11-01 00:57] LABS: VENOUS HCO3 27.6 MEQ/L (23.0-27.0); VENOUS O2 SATURATION 68.8 % (60.0-80.0); VENOUS PARTIAL PRESSURE CO2 52.4 mmHg (38.0-50.0); VENOUS PARTIAL PRESSURE O2 38.4 mmHg (30.0-50.0); VENOUS PH 7.339 UNITS (7.330-7.430); VENOUS STANDARD HCO3 24.7 MEQ/L; VENOUS TOTAL CO2 29.2 MEQ/L (24.0-28.0)
[2022-11-01 01:05] LABS: BASO % 0.4 % (0.0-1.0); EOS # 0.1 10^3/uL (0.0-0.5); EOS % 0.5 % (0.0-3.0); HEMATOCRIT 35.7 % (36.0-47.0); HEMOGLOBIN 11.2 g/dl (12.0-15.5); LYMPH # 2.7 10^3/uL (1.5-5.0); LYMPH % 29.1 % (24.0-44.0); MEAN CORPUSCULAR HGB CONC 31.4 g/dl (32.0-36.5); MONO # 0.5 10^3/uL (0.0-0.8); MONO % 5.8 % (2.0-8.0); NEUTROPHILS # 5.9 10^3/uL (1.5-8.5); NEUTROPHILS % 63.8 % (36.0-66.0); PLATELET COUNT, AUTOMATED 345 10^3/uL (150-450); WHITE BLOOD COUNT 9.3 10^3/uL (4.0-10.0)
[2022-11-01 01:28] LABS: ETHYL ALCOHOL (ETHANOL) 0.003 % (0.000-0.010)
[2022-11-01 01:30] LABS: ACETAMINOPHEN LEVEL < 2.0 UG/ML (10.0-20.0); ALBUMIN 3.4 G/DL (3.2-5.2); ALKALINE PHOSPHATASE 65 U/L (46-116); ALT/SGPT 16 U/L (7.0-40); AST/SGOT 19 U/L (<34); BILIRUBIN,DIRECT 0.1 MG/DL (<0.4); BILIRUBIN,TOTAL 0.2 MG/DL (0.3-1.2); BLOOD UREA NITROGEN 9 MG/DL (9-23); CALCIUM LEVEL 8.7 MG/DL (8.5-10.1); CARBON DIOXIDE LEVEL 27 MMOL/L (20-31); CHLORIDE LEVEL 107 MMOL/L (98-107); CPK CREATINE PHOSPHOKINASE 254 U/L (34-145); CREATININE FOR GFR 0.73 MG/DL (0.55-1.30); GLOMERULAR FILTRATION RATE > 60.0 (>60); GLUCOSE, FASTING 106 MG/DL (60-100); POTASSIUM SERUM 4.5 MMOL/L (3.5-5.1); SALICYLATE LEVEL < 3.0 MG/DL (<30); SODIUM LEVEL 140 MMOL/L (136-145); THYROID STIMULATING HORMONE 2.551 uIU/ML (0.55-4.78); TOTAL PROTEIN 6.7 G/DL (5.7-8.2)
[2022-11-01 01:33] LABS: HCG, SERUM QUALITATIVE NEGATIVE (NEGATIVE)
[2022-11-01 02:39] VITALS: BP 116/57
[2022-11-01] MEDS ORDERED: BENZ-52 PO (06:13)
[2022-11-01] MEDS ORDERED: HALD50IN4 IM (06:13)
[2022-11-01] MEDS ORDERED: BUPR150T12 PO (06:13)
[2022-11-01] MEDS ORDERED: SERT50TA29 PO (06:13)
[2022-11-01] MEDS ORDERED: HALO5TAB33 PO (06:13)
[2022-11-01] MEDS ORDERED: CHLO100T30 PO (06:13)
[2022-11-01] MEDS ORDERED: METF500T13 PO (06:13)
[2022-11-01] MEDS ORDERED: HOME MED LIST COMPLETE! XX SCH (06:15)
== END 2022-11-01 09:14 | disposition home or self-care (01) ==
LOC: EDBD 22:52 → M ED 22:52
DX: Z76.5 Malingerer [conscious simulation] (principal); E11.9 Type 2 diabetes mellitus without complications; F32.9 Major depressive disorder, single episode, unspecified; F17.200 Nicotine dependence, unspecified, uncomplicated; F10.10 Alcohol abuse, uncomplicated

== ENCOUNTER 2022-11-01 19:23 | Emergency (ER) | payer BC, MEDICAID ==
[~2022-11-01 19:23] MED LIST changes: +HALD50IN4 IM
[2022-11-01 20:21] LABS: HEMATOCRIT 39.2 % (36.0-47.0); HEMOGLOBIN 12.1 g/dl (12.0-15.5); MEAN CORPUSCULAR HEMOGLOBIN 25.9 pg (27.0-33.0); MEAN CORPUSCULAR HGB CONC 30.9 g/dl (32.0-36.5); MEAN CORPUSCULAR VOLUME 83.9 fl (80.0-96.0); PLATELET COUNT, AUTOMATED 381 10^3/uL (150-450); RED BLOOD COUNT 4.67 10^6/uL (4.00-5.40); WHITE BLOOD COUNT 10.1 10^3/uL (4.0-10.0)
[2022-11-01 20:43] LABS: AMPHETAMINES LEVEL URINE NEGATIVE (NEGATIVE); BARBITURATES URINE NEGATIVE (NEGATIVE); BENZODIAZEPINES URINE NEGATIVE (NEGATIVE); CANNABINOIDS URINE NEGATIVE (NEGATIVE); COCAINE METABOLITE URINE NEGATIVE (NEGATIVE); METHADONE URINE NEGATIVE (NEGATIVE); OPIATES URINE NEGATIVE (NEGATIVE); PHENCYCLIDINE URINE NEGATIVE (NEGATIVE)
[2022-11-01 20:45] LABS: ETHYL ALCOHOL (ETHANOL) 0.004 % (0.000-0.010)
[2022-11-01 20:46] LABS: ACETAMINOPHEN LEVEL < 2.0 UG/ML (10.0-20.0); BILIRUBIN,DIRECT < 0.1 MG/DL (<0.4)
[2022-11-01 20:47] LABS: ALBUMIN 3.7 G/DL (3.2-5.2); ALKALINE PHOSPHATASE 76 U/L (46-116); ALT/SGPT 17 U/L (7.0-40); AST/SGOT 23 U/L (<34); BILIRUBIN,TOTAL 0.2 MG/DL (0.3-1.2); BLOOD UREA NITROGEN 9 MG/DL (9-23); CARBON DIOXIDE LEVEL 26 MMOL/L (20-31); CHLORIDE LEVEL 106 MMOL/L (98-107); CREATININE FOR GFR 0.72 MG/DL (0.55-1.30); GLOMERULAR FILTRATION RATE > 60.0 (>60); GLUCOSE, FASTING 82 MG/DL (60-100); POTASSIUM SERUM 4.1 MMOL/L (3.5-5.1); SALICYLATE LEVEL < 3.0 MG/DL (<30); SODIUM LEVEL 141 MMOL/L (136-145)
[2022-11-01 20:49] LABS: THYROID STIMULATING HORMONE 1.682 uIU/ML (0.55-4.78)
[2022-11-02] MEDS ORDERED: HOME MED LIST COMPLETE! XX SCH (04:40)
[2022-11-02 06:36] LABS: RSV AMPLIFICATION NEGATIVE (NEGATIVE)
[2022-11-02] MEDS ORDERED: LORazepam 1 MG TAB PO STA (11:50)
[2022-11-02 12:07] VITALS: BP 136/75
== END 2022-11-02 12:27 | disposition home or self-care (01) ==
LOC: M ED 19:23
DX: Z04.6 Encounter for general psychiatric examination, requested by authority (principal); F60.3 Borderline personality disorder; Z76.5 Malingerer [conscious simulation]; F25.8 Other schizoaffective disorders; F43.0 Acute stress reaction; F31.9 Bipolar disorder, unspecified; Z79.84 Long term (current) use of oral hypoglycemic drugs; Z79.899 Other long term (current) drug therapy; Z90.49 Acquired absence of other specified parts of digestive tract

== ENCOUNTER 2022-11-03 07:41 | Emergency (ER) | payer BC, MEDICAID ==
[~2022-11-03] VITALS: Ht 167.6 cm; Wt 118.2 kg
[2022-11-03 07:54] VITALS: BP 123/87
[2022-11-04] MEDS ORDERED: DIVA500T94 PO (13:44)
[2022-11-04] MEDS ORDERED: METF-723 PO (13:44)
[2022-11-04] MEDS ORDERED: BENZ0.5T23 PO (13:44)
[2022-11-04] MEDS ORDERED: BENZ-52 PO (13:44)
[2022-11-04] MEDS ORDERED: MED REC COMMENT (13:45)
== END 2022-11-03 14:48 | disposition left against medical advice (07) ==
LOC: M ED 07:41
DX: Z53.21 Procedure and treatment not carried out due to patient leaving prior to being seen by health care provider (principal)

== ENCOUNTER 2022-11-03 12:53 | Emergency (ER) | payer BC, MEDICAID ==
[2022-11-03 17:58] VITALS: BP 144/65
[2022-11-04] MEDS ORDERED: BENZ-52 PO (13:44)
[2022-11-04] MEDS ORDERED: DIVA500T94 PO (13:44)
[2022-11-04] MEDS ORDERED: METF-723 PO (13:44)
[2022-11-04] MEDS ORDERED: BENZ0.5T23 PO (13:44)
[2022-11-04] MEDS ORDERED: MED REC COMMENT (13:45)
== END 2022-11-03 18:05 | disposition home or self-care (01) ==
LOC: M ED 15:36
DX: S09.90XA Unspecified injury of head, initial encounter (principal); R55 Syncope and collapse; Y92.410 Unspecified street and highway as the place of occurrence of the external cause; K21.9 Gastro-esophageal reflux disease without esophagitis; F17.200 Nicotine dependence, unspecified, uncomplicated; Z79.84 Long term (current) use of oral hypoglycemic drugs; Z79.899 Other long term (current) drug therapy

== ENCOUNTER 2022-11-04 08:30 | Emergency (ER) | payer BC, MEDICAID ==
[~2022-11-04] VITALS: Ht 172.7 cm; Wt 118.2 kg
[2022-11-04 10:04] LABS: HEMATOCRIT 36.8 % (36.0-47.0); HEMOGLOBIN 11.6 g/dl (12.0-15.5); MEAN CORPUSCULAR HEMOGLOBIN 26.2 pg (27.0-33.0); MEAN CORPUSCULAR HGB CONC 31.5 g/dl (32.0-36.5); MEAN CORPUSCULAR VOLUME 83.3 fl (80.0-96.0); PLATELET COUNT, AUTOMATED 326 10^3/uL (150-450); RED BLOOD COUNT 4.42 10^6/uL (4.00-5.40); WHITE BLOOD COUNT 8.2 10^3/uL (4.0-10.0)
[2022-11-04 10:34] LABS: ETHYL ALCOHOL (ETHANOL) 0.003 % (0.000-0.010)
[2022-11-04 10:35] LABS: ACETAMINOPHEN LEVEL < 2.0 UG/ML (10.0-20.0)
[2022-11-04 10:36] LABS: BILIRUBIN,DIRECT 0.2 MG/DL (<0.4); SALICYLATE LEVEL < 3.0 MG/DL (<30)
[2022-11-04 10:41] LABS: ALBUMIN 3.3 G/DL (3.2-5.2); ALKALINE PHOSPHATASE 68 U/L (46-116); ALT/SGPT 17 U/L (7.0-40); AST/SGOT 20 U/L (<34); BILIRUBIN,TOTAL 0.4 MG/DL (0.3-1.2); BLOOD UREA NITROGEN 7 MG/DL (9-23); CALCIUM LEVEL 8.8 MG/DL (8.5-10.1); CARBON DIOXIDE LEVEL 27 MMOL/L (20-31); CHLORIDE LEVEL 102 MMOL/L (98-107); CREATININE FOR GFR 0.64 MG/DL (0.55-1.30); GLOMERULAR FILTRATION RATE > 60.0 (>60); GLUCOSE, FASTING 94 MG/DL (60-100); HCG, SERUM QUALITATIVE NEGATIVE (NEGATIVE); POTASSIUM SERUM 4.2 MMOL/L (3.5-5.1); SODIUM LEVEL 137 MMOL/L (136-145); THYROID STIMULATING HORMONE 2.013 uIU/ML (0.55-4.78); TOTAL PROTEIN 6.7 G/DL (5.7-8.2)
[2022-11-04] MEDS ORDERED: METF-723 PO (13:44)
[2022-11-04] MEDS ORDERED: BENZ-52 PO (13:44)
[2022-11-04] MEDS ORDERED: BENZ0.5T23 PO (13:44)
[2022-11-04] MEDS ORDERED: DIVA500T94 PO (13:44)
[2022-11-04] MEDS ORDERED: MED REC COMMENT (13:45)
[2022-11-04] MEDS ORDERED: HOME MED LIST COMPLETE! XX SCH (13:50)
[2022-11-04 15:03] LABS: AMPHETAMINES LEVEL URINE NEGATIVE (NEGATIVE); BARBITURATES URINE NEGATIVE (NEGATIVE); BENZODIAZEPINES URINE NEGATIVE (NEGATIVE); CANNABINOIDS URINE NEGATIVE (NEGATIVE); COCAINE METABOLITE URINE NEGATIVE (NEGATIVE); METHADONE URINE NEGATIVE (NEGATIVE); OPIATES URINE NEGATIVE (NEGATIVE); PHENCYCLIDINE URINE NEGATIVE (NEGATIVE)
[2022-11-04] MEDS ORDERED: IBUPROFEN 400MG TAB PO ONE (19:30)
[2022-11-05] MEDS ORDERED: LORazepam 2 MG TAB PO STA (12:19)
[2022-11-05] MEDS ORDERED: IBUPROFEN 400MG TAB PO ONE (17:40)
[2022-11-05] MEDS ORDERED: BENZTROPINE 1 MG TAB PO ONE (20:25)
[2022-11-05] MEDS ORDERED: diphenhydrAMINE 25MG CAP PO ONE (20:25)
[2022-11-06 12:01] VITALS: BP 168/86
== END 2022-11-06 12:08 | disposition home or self-care (01) ==
LOC: M ED 08:30
DX: F32.9 Major depressive disorder, single episode, unspecified (principal); Z76.5 Malingerer [conscious simulation]; F60.3 Borderline personality disorder; F25.8 Other schizoaffective disorders

== ENCOUNTER 2022-11-07 05:25 | Emergency (ER) | payer BC, MEDICAID ==
[~2022-11-07] VITALS: Ht 167.6 cm; Wt 129.0 kg
[~2022-11-07 05:25] MED LIST changes: +BENZ0.5T23 PO; +MED REC COMMENT; +METF-723 PO
[2022-11-07 05:29] VITALS: BP 149/88
== END 2022-11-07 08:50 | disposition home or self-care (01) ==
LOC: M ED 05:25
DX: H53.59 Other color vision deficiencies (principal); F12.10 Cannabis abuse, uncomplicated; R73.03 Prediabetes; J45.909 Unspecified asthma, uncomplicated; F31.9 Bipolar disorder, unspecified; F90.9 Attention-deficit hyperactivity disorder, unspecified type; F17.200 Nicotine dependence, unspecified, uncomplicated; Z79.84 Long term (current) use of oral hypoglycemic drugs; Z79.899 Other long term (current) drug therapy

== ENCOUNTER 2022-11-10 23:50 | Emergency (ER) | payer BC, MEDICAID ==
[~2022-11-10] VITALS: Ht 167.6 cm; Wt 118.2 kg
[2022-11-11 10:45] VITALS: BP 115/56
== END 2022-11-11 12:00 | disposition home or self-care (01) ==
LOC: EDBD 23:50 → M ED 23:50
DX: R30.0 Dysuria (principal); Z76.5 Malingerer [conscious simulation]; J45.909 Unspecified asthma, uncomplicated; K21.9 Gastro-esophageal reflux disease without esophagitis; E66.9 Obesity, unspecified; F60.3 Borderline personality disorder; R73.03 Prediabetes; F90.9 Attention-deficit hyperactivity disorder, unspecified type; F17.200 Nicotine dependence, unspecified, uncomplicated; Z90.49 Acquired absence of other specified parts of digestive tract; Z79.84 Long term (current) use of oral hypoglycemic drugs; Z79.899 Other long term (current) drug therapy

== ENCOUNTER 2022-11-13 23:25 | Emergency (ER) | payer BC, MEDICAID ==
[~2022-11-13] VITALS: Ht 167.6 cm; Wt 120.0 kg
[2022-11-14 02:51] LABS: HEMATOCRIT 36.6 % (36.0-47.0); HEMOGLOBIN 11.6 g/dl (12.0-15.5); MEAN CORPUSCULAR HEMOGLOBIN 26.1 pg (27.0-33.0); MEAN CORPUSCULAR HGB CONC 31.7 g/dl (32.0-36.5); MEAN CORPUSCULAR VOLUME 82.4 fl (80.0-96.0); PLATELET COUNT, AUTOMATED 352 10^3/uL (150-450); RED BLOOD COUNT 4.44 10^6/uL (4.00-5.40); WHITE BLOOD COUNT 10.3 10^3/uL (4.0-10.0)
[2022-11-14 03:17] LABS: ETHYL ALCOHOL (ETHANOL) 0.003 % (0.000-0.010)
[2022-11-14 03:18] LABS: ACETAMINOPHEN LEVEL < 2.0 UG/ML (10.0-20.0)
[2022-11-14 03:19] LABS: ALBUMIN 3.3 G/DL (3.2-5.2); ALKALINE PHOSPHATASE 67 U/L (46-116); ALT/SGPT 13 U/L (7.0-40); AST/SGOT 16 U/L (<34); BILIRUBIN,DIRECT 0.1 MG/DL (<0.4); BILIRUBIN,TOTAL 0.3 MG/DL (0.3-1.2); BLOOD UREA NITROGEN 11 MG/DL (9-23); CALCIUM LEVEL 8.6 MG/DL (8.5-10.1); CARBON DIOXIDE LEVEL 26 MMOL/L (20-31); CHLORIDE LEVEL 106 MMOL/L (98-107); CREATININE FOR GFR 0.66 MG/DL (0.55-1.30); GLOMERULAR FILTRATION RATE > 60.0 (>60); GLUCOSE, FASTING 89 MG/DL (60-100); POTASSIUM SERUM 3.7 MMOL/L (3.5-5.1); SALICYLATE LEVEL < 3.0 MG/DL (<30); SODIUM LEVEL 141 MMOL/L (136-145); TOTAL PROTEIN 6.4 G/DL (5.7-8.2)
[2022-11-14 03:21] LABS: THYROID STIMULATING HORMONE 2.378 uIU/ML (0.55-4.78)
[2022-11-14 03:23] LABS: RSV AMPLIFICATION NEGATIVE (NEGATIVE)
[2022-11-14 11:29] LABS: AMPHETAMINES LEVEL URINE NEGATIVE (NEGATIVE); BARBITURATES URINE NEGATIVE (NEGATIVE); BENZODIAZEPINES URINE NEGATIVE (NEGATIVE); CANNABINOIDS URINE NEGATIVE (NEGATIVE); COCAINE METABOLITE URINE NEGATIVE (NEGATIVE); METHADONE URINE NEGATIVE (NEGATIVE); OPIATES URINE NEGATIVE (NEGATIVE); PHENCYCLIDINE URINE NEGATIVE (NEGATIVE)
[2022-11-14 12:59] VITALS: BP 138/68
[2022-11-15] MEDS ORDERED: REGL10TA6 PO (19:03)
== END 2022-11-14 13:26 | disposition home or self-care (01) ==
LOC: M ED 23:25
DX: F60.3 Borderline personality disorder (principal); Z76.5 Malingerer [conscious simulation]; M17.12 Unilateral primary osteoarthritis, left knee; F31.9 Bipolar disorder, unspecified; F17.200 Nicotine dependence, unspecified, uncomplicated; F12.10 Cannabis abuse, uncomplicated; Z79.899 Other long term (current) drug therapy

== ENCOUNTER 2022-11-15 16:51 | Emergency (ER) | payer BC, MEDICAID ==
[~2022-11-15] VITALS: Ht 167.6 cm; Wt 120.0 kg
[2022-11-15] MEDS ORDERED: NS 1,000 ML IV ONE (17:05)
[2022-11-15 17:29] LABS: BASO % 0.4 % (0.0-1.0); EOS # 0.1 10^3/uL (0.0-0.5); EOS % 0.7 % (0.0-3.0); HEMOGLOBIN 11.9 g/dl (12.0-15.5); LYMPH # 2.1 10^3/uL (1.5-5.0); LYMPH % 25.4 % (24.0-44.0); MEAN CORPUSCULAR HEMOGLOBIN 26.3 pg (27.0-33.0); MEAN CORPUSCULAR HGB CONC 31.3 g/dl (32.0-36.5); MEAN CORPUSCULAR VOLUME 84.1 fl (80.0-96.0); MONO # 0.4 10^3/uL (0.0-0.8); MONO % 4.8 % (2.0-8.0); NEUTROPHILS # 5.8 10^3/uL (1.5-8.5); NEUTROPHILS % 68.2 % (36.0-66.0); PLATELET COUNT, AUTOMATED 358 10^3/uL (150-450); RED BLOOD COUNT 4.52 10^6/uL (4.00-5.40); WHITE BLOOD COUNT 8.4 10^3/uL (4.0-10.0)
[2022-11-15 17:44] LABS: PROTHROMBIN TIME 13.4 SECONDS (12.5-14.5)
[2022-11-15 17:45] LABS: PARTIAL THROMBOPLASTIN TIME 33.3 SECONDS (24.8-34.2)
[2022-11-15] MEDS ORDERED: ONDANSETRON 4MG 2ML VIAL IV ONE (17:45)
[2022-11-15 17:51] LABS: LIPASE 42 U/L (12-53)
[2022-11-15 17:53] LABS: ALBUMIN 3.6 G/DL (3.2-5.2); ALKALINE PHOSPHATASE 70 U/L (46-116); ALT/SGPT 17 U/L (7.0-40); AST/SGOT 33 U/L (<34); BILIRUBIN,DIRECT < 0.1 MG/DL (<0.4); BILIRUBIN,TOTAL < 0.2 MG/DL (0.3-1.2); TOTAL PROTEIN 6.9 G/DL (5.7-8.2)
[2022-11-15 18:07] VITALS: BP 109/76
[2022-11-15 18:45] VITALS: O2SAT 98
[2022-11-15] MEDS ORDERED: REGL10TA6 PO (19:03)
== END 2022-11-15 19:23 | disposition home or self-care (01) ==
LOC: M ED 16:51
DX: F10.10 Alcohol abuse, uncomplicated (principal); F31.9 Bipolar disorder, unspecified; F20.9 Schizophrenia, unspecified; J45.909 Unspecified asthma, uncomplicated; K21.9 Gastro-esophageal reflux disease without esophagitis; Z79.899 Other long term (current) drug therapy
CPT/HCPCS: 80047; 80076; 83690; 84702; 85025; 85610; 85730; 86850; 86900; 86901; 93041; 96374; 99285; J2405

== ENCOUNTER 2022-11-15 23:36 | Emergency (ER) | payer BC, MEDICAID ==
[~2022-11-15] VITALS: Ht 167.6 cm; Wt 129.6 kg
[~2022-11-15 23:36] MED LIST changes: +REGL10TA6 PO
[2022-11-15 23:45] VITALS: BP 138/98
[2022-11-17] MEDS ORDERED: METF-839 PO (01:54)
[2022-11-17] MEDS ORDERED: METO10TA2 PO (01:54)
== END 2022-11-16 04:13 | disposition left against medical advice (07) ==
LOC: M ED 23:36 → EDBD 23:36 → M ED 11-16 04:13
DX: Z53.21 Procedure and treatment not carried out due to patient leaving prior to being seen by health care provider (principal)

== ENCOUNTER 2022-11-16 23:39 | Emergency (ER) | payer BC, MEDICAID ==
[~2022-11-16] VITALS: Ht 167.6 cm; Wt 118.2 kg
[2022-11-17 00:37] LABS: AMPHETAMINES LEVEL URINE NEGATIVE (NEGATIVE); BARBITURATES URINE NEGATIVE (NEGATIVE); BENZODIAZEPINES URINE NEGATIVE (NEGATIVE)
[2022-11-17 00:38] LABS: CANNABINOIDS URINE NEGATIVE (NEGATIVE); COCAINE METABOLITE URINE NEGATIVE (NEGATIVE); METHADONE URINE NEGATIVE (NEGATIVE); OPIATES URINE NEGATIVE (NEGATIVE); PHENCYCLIDINE URINE NEGATIVE (NEGATIVE)
[2022-11-17 00:40] LABS: ETHYL ALCOHOL (ETHANOL) 0.003 % (0.000-0.010)
[2022-11-17 00:41] LABS: ACETAMINOPHEN LEVEL < 2.0 UG/ML (10.0-20.0); SALICYLATE LEVEL < 3.0 MG/DL (<30)
[2022-11-17 00:48] LABS: RSV AMPLIFICATION NEGATIVE (NEGATIVE)
[2022-11-17 00:57] LABS: ALBUMIN 3.7 G/DL (3.2-5.2); ALKALINE PHOSPHATASE 74 U/L (46-116); ALT/SGPT 19 U/L (7.0-40); AST/SGOT 22 U/L (<34); BILIRUBIN,DIRECT < 0.1 MG/DL (<0.4); BILIRUBIN,TOTAL 0.2 MG/DL (0.3-1.2); BLOOD UREA NITROGEN 9 MG/DL (9-23); CALCIUM LEVEL 9.1 MG/DL (8.5-10.1); CARBON DIOXIDE LEVEL 29 MMOL/L (20-31); CHLORIDE LEVEL 102 MMOL/L (98-107); CREATININE FOR GFR 0.69 MG/DL (0.55-1.30); GLOMERULAR FILTRATION RATE > 60.0 (>60); GLUCOSE, FASTING 95 MG/DL (60-100); SODIUM LEVEL 139 MMOL/L (136-145); THYROID STIMULATING HORMONE 3.766 uIU/ML (0.55-4.78); TOTAL PROTEIN 7.5 G/DL (5.7-8.2)
[2022-11-17 00:58] LABS: HEMATOCRIT 39.8 % (36.0-47.0); HEMOGLOBIN 12.2 g/dl (12.0-15.5); MEAN CORPUSCULAR HGB CONC 30.7 g/dl (32.0-36.5); MEAN CORPUSCULAR VOLUME 84.9 fl (80.0-96.0); PLATELET COUNT, AUTOMATED 406 10^3/uL (150-450); RED BLOOD COUNT 4.69 10^6/uL (4.00-5.40); WHITE BLOOD COUNT 9.2 10^3/uL (4.0-10.0)
[2022-11-17 01:01] LABS: HCG, SERUM QUALITATIVE NEGATIVE (NEGATIVE)
[2022-11-17] MEDS ORDERED: METF-839 PO (01:54)
[2022-11-17] MEDS ORDERED: METO10TA2 PO (01:54)
[2022-11-17] MEDS ORDERED: HOME MED LIST COMPLETE! XX SCH (01:55)
[2022-11-17 06:55] VITALS: BP 165/101
[2022-11-17] MEDS ORDERED: DIVALPROEX 500 MG TAB PO ONE (07:35)
[2022-11-17] MEDS ORDERED: metFORMIN (GLUCOPHAGE) 500MG TAB PO SCH (08:00)
[2022-11-17] MEDS ORDERED: DIVALPROEX 500 MG TAB PO SCH (09:00)
[2022-11-17] MEDS ORDERED: BENZTROPINE 0.5 MG TAB PO SCH (09:00)
[2022-11-17] MEDS ORDERED: buPROPion **XL** TABLET 150MG (WELLBUTRIN XL) PO SCH (09:00)
[2022-11-17] MEDS ORDERED: DIVALPROEX 500MG *ER* TAB PO SCH (09:00)
[2022-11-17] MEDS ORDERED: SERTRALINE HCL 50 MG TAB PO SCH (21:00)
[2022-11-17] MEDS ORDERED: SERTRALINE HCL 50 MG TAB PO ONE (21:00)
== END 2022-11-17 12:22 | disposition home or self-care (01) ==
LOC: M ED 23:39
DX: F60.9 Personality disorder, unspecified (principal); R45.851 Suicidal ideations; F32.A Depression, unspecified; F10.10 Alcohol abuse, uncomplicated; Z79.899 Other long term (current) drug therapy; Z79.811 Long term (current) use of aromatase inhibitors; Z79.52 Long term (current) use of systemic steroids

== ENCOUNTER 2022-11-17 19:28 | Emergency (ER) | payer BC, MEDICAID ==
[~2022-11-17] VITALS: Ht 167.6 cm; Wt 127.3 kg
[~2022-11-17 19:28] MED LIST changes: -BENZ-52 PO; +BENZ1TAB5 PO; +METO10TA2 PO
[2022-11-17 20:41] VITALS: BP 160/94
== END 2022-11-18 01:36 | disposition left against medical advice (07) ==
LOC: EDBD 19:28 → M ED 19:28
DX: Z53.21 Procedure and treatment not carried out due to patient leaving prior to being seen by health care provider (principal)

== ENCOUNTER 2022-11-18 09:25 | Emergency (ER) | payer BC, MEDICAID ==
[~2022-11-18] VITALS: Ht 167.6 cm; Wt 118.2 kg
[2022-11-18 13:13] LABS: HEMATOCRIT 37.3 % (36.0-47.0); HEMOGLOBIN 12.2 g/dl (12.0-15.5); MEAN CORPUSCULAR HGB CONC 32.7 g/dl (32.0-36.5); MEAN CORPUSCULAR VOLUME 82.5 fl (80.0-96.0); PLATELET COUNT, AUTOMATED 340 10^3/uL (150-450); RED BLOOD COUNT 4.52 10^6/uL (4.00-5.40); WHITE BLOOD COUNT 9.1 10^3/uL (4.0-10.0)
[2022-11-18 13:31] LABS: ETHYL ALCOHOL (ETHANOL) 0.003 % (0.000-0.010); HCG, SERUM QUALITATIVE NEGATIVE (NEGATIVE)
[2022-11-18 13:32] LABS: ACETAMINOPHEN LEVEL < 2.0 UG/ML (10.0-20.0)
[2022-11-18 13:33] LABS: SALICYLATE LEVEL < 3.0 MG/DL (<30)
[2022-11-18 13:34] LABS: ALBUMIN 3.1 G/DL (3.2-5.2); ALKALINE PHOSPHATASE 67 U/L (46-116); ALT/SGPT 17 U/L (7.0-40); AST/SGOT 17 U/L (<34); BILIRUBIN,DIRECT 0.2 MG/DL (<0.4); BILIRUBIN,TOTAL 0.4 MG/DL (0.3-1.2); BLOOD UREA NITROGEN 10 MG/DL (9-23); CALCIUM LEVEL 8.7 MG/DL (8.5-10.1); CARBON DIOXIDE LEVEL 27 MMOL/L (20-31); CHLORIDE LEVEL 104 MMOL/L (98-107); CREATININE FOR GFR 0.57 MG/DL (0.55-1.30); GLOMERULAR FILTRATION RATE > 60.0 (>60); GLUCOSE, FASTING 81 MG/DL (60-100); POTASSIUM SERUM 4.2 MMOL/L (3.5-5.1); SODIUM LEVEL 138 MMOL/L (136-145); THYROID STIMULATING HORMONE 1.337 uIU/ML (0.55-4.78); TOTAL PROTEIN 6.5 G/DL (5.7-8.2)
[2022-11-18 14:43] VITALS: BP 114/55
== END 2022-11-18 14:48 | disposition home or self-care (01) ==
LOC: M ED 09:25
DX: F31.9 Bipolar disorder, unspecified (principal); E11.9 Type 2 diabetes mellitus without complications; F60.3 Borderline personality disorder; J45.909 Unspecified asthma, uncomplicated; Z90.49 Acquired absence of other specified parts of digestive tract; Z59.00 Homelessness unspecified; F17.200 Nicotine dependence, unspecified, uncomplicated; Z79.899 Other long term (current) drug therapy

== ENCOUNTER 2022-11-24 20:56 | Emergency (ER) | payer BC, MEDICAID ==
[2022-11-24 21:03] VITALS: BP 118/82
== END 2022-11-24 22:51 | disposition left against medical advice (07) ==
LOC: M ED 20:56
DX: Z53.21 Procedure and treatment not carried out due to patient leaving prior to being seen by health care provider (principal)

== ENCOUNTER 2022-11-25 19:36 | Emergency (ER) | payer BC, MEDICAID ==
[~2022-11-25] VITALS: Ht 167.6 cm; Wt 129.8 kg
[2022-11-25] MEDS ORDERED: ONDANSETRON 4MG ORAL DISINTEGRATING TAB PO ONE (20:20)
[2022-11-25] MEDS ORDERED: diphenhydrAMINE 50MG/ML VIAL IM ONE (23:40)
[2022-11-25] MEDS ORDERED: MIDAZOLAM INJ 2MG/2ML VIAL IM ONE (23:40)
[2022-11-25] MEDS ORDERED: HALOPERIDOL 5MG/ML 1ML VIAL IM ONE (23:40)
[2022-11-26 00:28] LABS: AMPHETAMINES LEVEL URINE NEGATIVE (NEGATIVE); BARBITURATES URINE NEGATIVE (NEGATIVE); BENZODIAZEPINES URINE NEGATIVE (NEGATIVE); CANNABINOIDS URINE NEGATIVE (NEGATIVE); COCAINE METABOLITE URINE NEGATIVE (NEGATIVE); METHADONE URINE NEGATIVE (NEGATIVE); OPIATES URINE NEGATIVE (NEGATIVE); PHENCYCLIDINE URINE NEGATIVE (NEGATIVE)
[2022-11-26 00:30] LABS: ETHYL ALCOHOL (ETHANOL) 0.005 % (0.000-0.010)
[2022-11-26 00:31] LABS: ACETAMINOPHEN LEVEL < 2.0 UG/ML (10.0-20.0)
[2022-11-26 00:32] LABS: ALBUMIN 3.7 G/DL (3.2-5.2); ALKALINE PHOSPHATASE 71 U/L (46-116); ALT/SGPT 19 U/L (7.0-40); AST/SGOT 24 U/L (<34); BILIRUBIN,DIRECT < 0.1 MG/DL (<0.4); BILIRUBIN,TOTAL 0.3 MG/DL (0.3-1.2); BLOOD UREA NITROGEN 11 MG/DL (9-23); CALCIUM LEVEL 9.2 MG/DL (8.5-10.1); CARBON DIOXIDE LEVEL 24 MMOL/L (20-31); CHLORIDE LEVEL 106 MMOL/L (98-107); CREATININE FOR GFR 0.72 MG/DL (0.55-1.30); GLOMERULAR FILTRATION RATE > 60.0 (>60); GLUCOSE, FASTING 94 MG/DL (60-100); POTASSIUM SERUM 4.2 MMOL/L (3.5-5.1); SALICYLATE LEVEL < 3.0 MG/DL (<30); SODIUM LEVEL 138 MMOL/L (136-145); TOTAL PROTEIN 7.1 G/DL (5.7-8.2)
[2022-11-26 00:34] LABS: THYROID STIMULATING HORMONE 3.903 uIU/ML (0.55-4.78)
[2022-11-26 00:44] LABS: HCG, SERUM QUALITATIVE NEGATIVE (NEGATIVE)
[2022-11-26 00:51] LABS: BASO # 0.1 10^3/uL (0.0-0.2); BASO % 0.5 % (0.0-1.0); EOS # 0.1 10^3/uL (0.0-0.5); EOS % 0.6 % (0.0-3.0); HEMATOCRIT 38.9 % (36.0-47.0); HEMOGLOBIN 12.3 g/dl (12.0-15.5); LYMPH # 3.3 10^3/uL (1.5-5.0); LYMPH % 35.3 % (24.0-44.0); MEAN CORPUSCULAR HGB CONC 31.6 g/dl (32.0-36.5); MEAN CORPUSCULAR VOLUME 82.2 fl (80.0-96.0); MONO # 0.5 10^3/uL (0.0-0.8); MONO % 5.5 % (2.0-8.0); NEUTROPHILS # 5.5 10^3/uL (1.5-8.5); NEUTROPHILS % 57.7 % (36.0-66.0); PLATELET COUNT, AUTOMATED 400 10^3/uL (150-450); RED BLOOD COUNT 4.73 10^6/uL (4.00-5.40); WHITE BLOOD COUNT 9.5 10^3/uL (4.0-10.0)
[2022-11-26] MEDS ORDERED: HOME MED LIST COMPLETE! XX SCH (04:55)
[2022-11-26] MEDS ORDERED: BENZTROPINE 0.5 MG TAB PO ONE (07:35)
[2022-11-26] MEDS ORDERED: metFORMIN (GLUCOPHAGE) 500MG TAB PO ONE (07:35)
[2022-11-26] MEDS ORDERED: buPROPion **XL** TABLET 150MG (WELLBUTRIN XL) PO ONE (07:35)
[2022-11-26] MEDS ORDERED: DIVALPROEX 500 MG TAB PO ONE (07:35)
[2022-11-26] MEDS ORDERED: NICOTINE POLACRILEX 2 MG GUM PO ONE (17:10)
[2022-11-26 17:30] VITALS: BP 122/65
== END 2022-11-26 17:51 | disposition home or self-care (01) ==
LOC: EDBD 19:36 → M ED 19:36
DX: F19.929 Other psychoactive substance use, unspecified with intoxication, unspecified (principal); F31.9 Bipolar disorder, unspecified; F60.3 Borderline personality disorder; F17.200 Nicotine dependence, unspecified, uncomplicated; Z79.899 Other long term (current) drug therapy; Z79.84 Long term (current) use of oral hypoglycemic drugs

== ENCOUNTER 2022-11-27 04:16 | Emergency (ER) | payer BC, MEDICAID ==
[~2022-11-27] VITALS: Ht 167.6 cm; Wt 118.2 kg
[2022-11-27 10:40] VITALS: BP 136/81
== END 2022-11-27 10:45 | disposition home or self-care (01) ==
LOC: M ED 04:16
DX: S60.221A Contusion of right hand, initial encounter (principal); S63.501A Unspecified sprain of right wrist, initial encounter; W22.8XXA Striking against or struck by other objects, initial encounter; Y92.099 Unspecified place in other non-institutional residence as the place of occurrence of the external cause; E11.9 Type 2 diabetes mellitus without complications; J45.909 Unspecified asthma, uncomplicated; K21.9 Gastro-esophageal reflux disease without esophagitis; F90.9 Attention-deficit hyperactivity disorder, unspecified type; F20.9 Schizophrenia, unspecified; F31.9 Bipolar disorder, unspecified; F17.200 Nicotine dependence, unspecified, uncomplicated; F12.10 Cannabis abuse, uncomplicated; Z79.899 Other long term (current) drug therapy

== ENCOUNTER 2022-12-02 18:35 | Emergency (ER) | payer BC, MEDICAID ==
[~2022-12-02] VITALS: Ht 167.6 cm; Wt 129.6 kg
[2022-12-02 18:44] VITALS: BP 132/76
[2022-12-02] MEDS ORDERED: ACETAMINOPHEN TAB 650MG DOSE (2X325MG) PO ONE (20:50)
[2022-12-02 22:17] LABS: HEMATOCRIT 39.2 % (36.0-47.0); HEMOGLOBIN 12.1 g/dl (12.0-15.5); MEAN CORPUSCULAR HGB CONC 30.9 g/dl (32.0-36.5); MEAN CORPUSCULAR VOLUME 84.3 fl (80.0-96.0); PLATELET COUNT, AUTOMATED 351 10^3/uL (150-450); RED BLOOD COUNT 4.65 10^6/uL (4.00-5.40); WHITE BLOOD COUNT 8.5 10^3/uL (4.0-10.0)
[2022-12-02 22:33] LABS: ETHYL ALCOHOL (ETHANOL) < 0.003 % (0.000-0.010)
[2022-12-02 22:35] LABS: ACETAMINOPHEN LEVEL < 2.0 UG/ML (10.0-20.0); SALICYLATE LEVEL < 3.0 MG/DL (<30)
[2022-12-02 22:38] LABS: ALBUMIN 3.5 G/DL (3.2-5.2); ALKALINE PHOSPHATASE 65 U/L (46-116); ALT/SGPT 20 U/L (7.0-40); AST/SGOT 22 U/L (<34); BILIRUBIN,DIRECT < 0.1 MG/DL (<0.4); BILIRUBIN,TOTAL 0.2 MG/DL (0.3-1.2); BLOOD UREA NITROGEN 11 MG/DL (9-23); CALCIUM LEVEL 8.9 MG/DL (8.5-10.1); CARBON DIOXIDE LEVEL 31 MMOL/L (20-31); CHLORIDE LEVEL 105 MMOL/L (98-107); CREATININE FOR GFR 0.73 MG/DL (0.55-1.30); GLOMERULAR FILTRATION RATE > 60.0 (>60); GLUCOSE, FASTING 80 MG/DL (60-100); POTASSIUM SERUM 4.1 MMOL/L (3.5-5.1); SODIUM LEVEL 140 MMOL/L (136-145); THYROID STIMULATING HORMONE 7.896 uIU/ML (0.55-4.78); TOTAL PROTEIN 6.8 G/DL (5.7-8.2)
[2022-12-02 22:47] LABS: HCG, SERUM QUALITATIVE NEGATIVE (NEGATIVE)
[2022-12-02 23:44] LABS: AMPHETAMINES LEVEL URINE NEGATIVE (NEGATIVE); BARBITURATES URINE NEGATIVE (NEGATIVE); BENZODIAZEPINES URINE NEGATIVE (NEGATIVE); CANNABINOIDS URINE NEGATIVE (NEGATIVE); PHENCYCLIDINE URINE NEGATIVE (NEGATIVE)
[2022-12-02 23:45] LABS: COCAINE METABOLITE URINE NEGATIVE (NEGATIVE); METHADONE URINE NEGATIVE (NEGATIVE); OPIATES URINE NEGATIVE (NEGATIVE)
== END 2022-12-03 16:23 | disposition home or self-care (01) ==
LOC: EDBD 18:35 → M ED 18:35
DX: Z76.5 Malingerer [conscious simulation] (principal); R51.9 Headache, unspecified; F60.3 Borderline personality disorder; F17.200 Nicotine dependence, unspecified, uncomplicated; Z79.899 Other long term (current) drug therapy

== ENCOUNTER 2022-12-03 19:10 | Emergency (ER) | payer BC, MEDICAID ==
[2022-12-03 20:02] VITALS: BP 132/78
== END 2022-12-04 00:05 | disposition left against medical advice (07) ==
LOC: M ED 19:10
DX: Z53.21 Procedure and treatment not carried out due to patient leaving prior to being seen by health care provider (principal)

== ENCOUNTER 2022-12-05 01:04 | Emergency (ER) | payer BC, MEDICAID ==
[~2022-12-05] VITALS: Ht 167.6 cm; Wt 130.8 kg
[2022-12-05 01:05] VITALS: BP 121/78
== END 2022-12-05 04:44 | disposition left against medical advice (07) ==
LOC: M ED 01:04
DX: Z53.21 Procedure and treatment not carried out due to patient leaving prior to being seen by health care provider (principal)

== ENCOUNTER 2022-12-05 22:04 | Emergency (ER) | payer BC, MEDICAID ==
[~2022-12-05] VITALS: Ht 167.6 cm; Wt 118.2 kg
[2022-12-05 23:14] LABS: HEMATOCRIT 37.8 % (36.0-47.0); HEMOGLOBIN 11.7 g/dl (12.0-15.5); MEAN CORPUSCULAR HEMOGLOBIN 25.6 pg (27.0-33.0); MEAN CORPUSCULAR VOLUME 82.7 fl (80.0-96.0); PLATELET COUNT, AUTOMATED 388 10^3/uL (150-450); RED BLOOD COUNT 4.57 10^6/uL (4.00-5.40); WHITE BLOOD COUNT 10.2 10^3/uL (4.0-10.0)
[2022-12-05 23:27] LABS: AMPHETAMINES LEVEL URINE NEGATIVE (NEGATIVE); BENZODIAZEPINES URINE NEGATIVE (NEGATIVE); CANNABINOIDS URINE NEGATIVE (NEGATIVE); METHADONE URINE NEGATIVE (NEGATIVE); OPIATES URINE NEGATIVE (NEGATIVE); PHENCYCLIDINE URINE NEGATIVE (NEGATIVE)
[2022-12-05 23:28] LABS: BARBITURATES URINE NEGATIVE (NEGATIVE); COCAINE METABOLITE URINE NEGATIVE (NEGATIVE)
[2022-12-05 23:30] LABS: ETHYL ALCOHOL (ETHANOL) < 0.003 % (0.000-0.010)
[2022-12-05 23:31] LABS: ACETAMINOPHEN LEVEL < 2.0 UG/ML (10.0-20.0)
[2022-12-05 23:32] LABS: SALICYLATE LEVEL < 3.0 MG/DL (<30)
[2022-12-05 23:35] LABS: ALBUMIN 3.2 G/DL (3.2-5.2); ALKALINE PHOSPHATASE 66 U/L (46-116); ALT/SGPT 19 U/L (7.0-40); AST/SGOT 22 U/L (<34); BILIRUBIN,DIRECT < 0.1 MG/DL (<0.4); BILIRUBIN,TOTAL 0.2 MG/DL (0.3-1.2); BLOOD UREA NITROGEN 12 MG/DL (9-23); CALCIUM LEVEL 8.6 MG/DL (8.5-10.1); CARBON DIOXIDE LEVEL 23 MMOL/L (20-31); CHLORIDE LEVEL 109 MMOL/L (98-107); CREATININE FOR GFR 0.71 MG/DL (0.55-1.30); GLOMERULAR FILTRATION RATE > 60.0 (>60); GLUCOSE, FASTING 88 MG/DL (60-100); SODIUM LEVEL 140 MMOL/L (136-145); THYROID STIMULATING HORMONE 2.063 uIU/ML (0.55-4.78); TOTAL PROTEIN 6.7 G/DL (5.7-8.2)
[2022-12-05 23:42] LABS: HCG, SERUM QUALITATIVE NEGATIVE (NEGATIVE)
[2022-12-06] MEDS ORDERED: OLANZapine ORAL DISINTEGRATING TAB 5MG PO ONE (00:25)
[2022-12-06] MEDS ORDERED: diphenhydrAMINE 50MG/ML VIAL IM ONE (00:35)
[2022-12-06] MEDS ORDERED: HALOPERIDOL 5MG/ML 1ML VIAL IM ONE (00:35)
[2022-12-06] MEDS ORDERED: MIDAZOLAM INJ 2MG/2ML VIAL IM ONE (00:35)
[2022-12-06 14:44] VITALS: BP 158/102
[2022-12-06] MEDS ORDERED: ACETAMINOPHEN TAB 650MG DOSE (2X325MG) PO ONE (14:50)
[2022-12-07] MEDS ORDERED: LAMO25TA4 PO (11:53)
[2022-12-07] MEDS ORDERED: METF-838 PO (11:53)
[2022-12-07] MEDS ORDERED: BENZ1TAB5 PO (11:53)
[2022-12-07] MEDS ORDERED: FOLI1TAB11 PO (11:53)
== END 2022-12-06 14:59 | disposition home or self-care (01) ==
LOC: M ED 22:04
DX: F60.3 Borderline personality disorder (principal); F43.0 Acute stress reaction; Z79.899 Other long term (current) drug therapy
CPT/HCPCS: 80048; 80076; 80143; 80307; 82077; 84443; 84703; 85027; 87635; 93005; 96372; 99285; J1200; J1630; J2250

== ENCOUNTER 2022-12-06 21:48 | Emergency (ER) | payer BC, MEDICAID ==
[~2022-12-06] VITALS: Ht 167.6 cm; Wt 130.3 kg
[2022-12-06] MEDS ORDERED: ACETAMINOPHEN TAB 650MG DOSE (2X325MG) PO ONE (22:30)
[2022-12-07] MEDS ORDERED: ONDANSETRON 4MG ORAL DISINTEGRATING TAB PO ONE (00:45)
[2022-12-07 01:19] LABS: HEMOGLOBIN 12.7 g/dl (12.0-15.5); MEAN CORPUSCULAR HEMOGLOBIN 25.4 pg (27.0-33.0); PLATELET COUNT, AUTOMATED 418 10^3/uL (150-450); WHITE BLOOD COUNT 9.4 10^3/uL (4.0-10.0)
[2022-12-07 01:24] LABS: HCG, SERUM QUALITATIVE NEGATIVE (NEGATIVE)
[2022-12-07 01:31] LABS: ETHYL ALCOHOL (ETHANOL) < 0.003 % (0.000-0.010)
[2022-12-07 01:33] LABS: ACETAMINOPHEN LEVEL < 2.0 UG/ML (10.0-20.0); SALICYLATE LEVEL < 3.0 MG/DL (<30)
[2022-12-07 01:35] LABS: THYROID STIMULATING HORMONE 2.396 uIU/ML (0.55-4.78)
[2022-12-07 01:38] LABS: ALBUMIN 3.7 G/DL (3.2-5.2); ALKALINE PHOSPHATASE 67 U/L (46-116); ALT/SGPT 24 U/L (7.0-40); AST/SGOT 23 U/L (<34); BILIRUBIN,DIRECT < 0.1 MG/DL (<0.4); BILIRUBIN,TOTAL 0.2 MG/DL (0.3-1.2); BLOOD UREA NITROGEN 11 MG/DL (9-23); CALCIUM LEVEL 9.1 MG/DL (8.5-10.1); CARBON DIOXIDE LEVEL 22 MMOL/L (20-31); CHLORIDE LEVEL 107 MMOL/L (98-107); CREATININE FOR GFR 0.68 MG/DL (0.55-1.30); GLOMERULAR FILTRATION RATE > 60.0 (>60); GLUCOSE, FASTING 99 MG/DL (60-100); SODIUM LEVEL 140 MMOL/L (136-145); TOTAL PROTEIN 7.4 G/DL (5.7-8.2)
[2022-12-07] MEDS ORDERED: DIVALPROEX 500 MG TAB PO SCH (09:00)
[2022-12-07] MEDS ORDERED: FOLIC ACID 1MG TAB PO SCH (09:00)
[2022-12-07] MEDS ORDERED: buPROPion **XL** TABLET 150MG (WELLBUTRIN XL) PO SCH (09:00)
[2022-12-07] MEDS ORDERED: METF-838 PO (11:53)
[2022-12-07] MEDS ORDERED: LAMO25TA4 PO (11:53)
[2022-12-07] MEDS ORDERED: BENZ1TAB5 PO (11:53)
[2022-12-07] MEDS ORDERED: FOLI1TAB11 PO (11:53)
[2022-12-07] MEDS ORDERED: HOME MED LIST COMPLETE! XX SCH (11:55)
[2022-12-07] MEDS ORDERED: traZODone 100 MG TAB PO PRN (15:00)
[2022-12-07] MEDS ORDERED: ONDANSETRON 4MG TAB PO ONE (15:40)
[2022-12-07 19:51] VITALS: BP 139/79
[2022-12-07] MEDS ORDERED: lamoTRIgine 25MG TAB PO SCH (21:00)
[2022-12-07] MEDS ORDERED: BENZTROPINE 0.5 MG TAB PO SCH (21:00)
[2022-12-07] MEDS ORDERED: SERTRALINE HCL 50 MG TAB PO SCH (21:00)
[2022-12-07] MEDS ORDERED: metFORMIN XR 500MG TAB *GLUCOPHAGE XR PO SCH (21:00)
== END 2022-12-07 20:36 | disposition home or self-care (01) ==
LOC: EDBD 21:48 → M ED 21:48
DX: F43.0 Acute stress reaction (principal); Z76.5 Malingerer [conscious simulation]; R45.851 Suicidal ideations; F20.9 Schizophrenia, unspecified; F12.10 Cannabis abuse, uncomplicated; F10.10 Alcohol abuse, uncomplicated; Z79.4 Long term (current) use of insulin; Z79.899 Other long term (current) drug therapy; Z79.83 Long term (current) use of bisphosphonates

== ENCOUNTER 2022-12-11 21:36 | Emergency (ER) | payer BC, MEDICAID ==
[~2022-12-11 21:36] MED LIST changes: +FOLI1TAB11 PO
[2022-12-11 21:58] VITALS: BP 133/63
[2022-12-11] MEDS ORDERED: IBUPROFEN 600MG TAB PO ONE (23:35)
== END 2022-12-12 00:15 | disposition home or self-care (01) ==
LOC: EDBD 21:36 → M ED 21:36
DX: S93.402A Sprain of unspecified ligament of left ankle, initial encounter (principal); X50.1XXA Overexertion from prolonged static or awkward postures, initial encounter; Y92.099 Unspecified place in other non-institutional residence as the place of occurrence of the external cause; F20.9 Schizophrenia, unspecified; F90.9 Attention-deficit hyperactivity disorder, unspecified type; K21.9 Gastro-esophageal reflux disease without esophagitis; E78.00 Pure hypercholesterolemia, unspecified; F12.10 Cannabis abuse, uncomplicated; Z79.899 Other long term (current) drug therapy

== ENCOUNTER 2022-12-12 20:05 | Emergency (ER) | payer BC, MEDICAID ==
[~2022-12-12] VITALS: Ht 165.1 cm; Wt 122.0 kg
[2022-12-12 20:50] VITALS: BP 121/68
[2022-12-12] MEDS ORDERED: NS 1,000 ML IV ONE (21:15)
[2022-12-12 21:17] LABS: BASO % 0.5 % (0.0-1.0); EOS # 0.1 10^3/uL (0.0-0.5); EOS % 0.9 % (0.0-3.0); HEMATOCRIT 37.6 % (36.0-47.0); HEMOGLOBIN 11.9 g/dl (12.0-15.5); LYMPH # 2.4 10^3/uL (1.5-5.0); MEAN CORPUSCULAR HEMOGLOBIN 25.9 pg (27.0-33.0); MEAN CORPUSCULAR HGB CONC 31.6 g/dl (32.0-36.5); MEAN CORPUSCULAR VOLUME 81.9 fl (80.0-96.0); MONO # 0.3 10^3/uL (0.0-0.8); MONO % 4.4 % (2.0-8.0); NEUTROPHILS # 3.7 10^3/uL (1.5-8.5); NEUTROPHILS % 56.9 % (36.0-66.0); PLATELET COUNT, AUTOMATED 337 10^3/uL (150-450); RED BLOOD COUNT 4.59 10^6/uL (4.00-5.40); WHITE BLOOD COUNT 6.6 10^3/uL (4.0-10.0)
[2022-12-12 21:42] LABS: ETHYL ALCOHOL (ETHANOL) < 0.003 % (0.000-0.010)
[2022-12-12 21:43] LABS: HCG, SERUM QUALITATIVE NEGATIVE (NEGATIVE); SALICYLATE LEVEL < 3.0 MG/DL (<30)
[2022-12-12 21:44] LABS: ACETAMINOPHEN LEVEL < 2.0 UG/ML (10.0-20.0); ALBUMIN 3.3 G/DL (3.2-5.2); ALKALINE PHOSPHATASE 53 U/L (46-116); ALT/SGPT 30 U/L (7.0-40); AST/SGOT 28 U/L (<34); BILIRUBIN,DIRECT 0.1 MG/DL (<0.4); BILIRUBIN,TOTAL 0.3 MG/DL (0.3-1.2); BLOOD UREA NITROGEN 12 MG/DL (9-23); CALCIUM LEVEL 8.6 MG/DL (8.5-10.1); CARBON DIOXIDE LEVEL 30 MMOL/L (20-31); CHLORIDE LEVEL 106 MMOL/L (98-107); CPK CREATINE PHOSPHOKINASE 82 U/L (34-145); CREATININE FOR GFR 0.75 MG/DL (0.55-1.30); GLOMERULAR FILTRATION RATE > 60.0 (>60); GLUCOSE, FASTING 80 MG/DL (60-100); SODIUM LEVEL 139 MMOL/L (136-145); TOTAL PROTEIN 6.6 G/DL (5.7-8.2)
[2022-12-12 21:46] LABS: THYROID STIMULATING HORMONE 1.036 uIU/ML (0.55-4.78)
== END 2022-12-13 00:59 | disposition home or self-care (01) ==
LOC: M ED 20:05
DX: Z76.5 Malingerer [conscious simulation] (principal); E11.9 Type 2 diabetes mellitus without complications; F20.9 Schizophrenia, unspecified; F31.9 Bipolar disorder, unspecified; F90.9 Attention-deficit hyperactivity disorder, unspecified type; Z90.49 Acquired absence of other specified parts of digestive tract; Z79.899 Other long term (current) drug therapy; Z79.84 Long term (current) use of oral hypoglycemic drugs

== ENCOUNTER 2022-12-14 00:42 | Emergency (ER) | payer BC, MEDICAID ==
[2022-12-14] MEDS ORDERED: ACETAMINOPHEN TAB 650MG DOSE (2X325MG) PO ONE (01:05)
[2022-12-14] MEDS ORDERED: LORazepam 2 MG/ML 1ML VIAL IM STA (02:40)
[2022-12-14] MEDS ORDERED: HALOPERIDOL 5MG/ML 1ML VIAL IM STA (02:40)
[2022-12-14] MEDS ORDERED: diphenhydrAMINE 50MG/ML VIAL IM STA (02:40)
[2022-12-14 03:42] LABS: HEMATOCRIT 37.6 % (36.0-47.0); HEMOGLOBIN 11.8 g/dl (12.0-15.5); MEAN CORPUSCULAR HEMOGLOBIN 25.5 pg (27.0-33.0); MEAN CORPUSCULAR HGB CONC 31.4 g/dl (32.0-36.5); MEAN CORPUSCULAR VOLUME 81.2 fl (80.0-96.0); PLATELET COUNT, AUTOMATED 373 10^3/uL (150-450); RED BLOOD COUNT 4.63 10^6/uL (4.00-5.40); WHITE BLOOD COUNT 8.5 10^3/uL (4.0-10.0)
[2022-12-14 04:09] LABS: AMPHETAMINES LEVEL URINE NEGATIVE (NEGATIVE); BARBITURATES URINE NEGATIVE (NEGATIVE); BENZODIAZEPINES URINE NEGATIVE (NEGATIVE); CANNABINOIDS URINE NEGATIVE (NEGATIVE); COCAINE METABOLITE URINE NEGATIVE (NEGATIVE); METHADONE URINE NEGATIVE (NEGATIVE); OPIATES URINE NEGATIVE (NEGATIVE); PHENCYCLIDINE URINE NEGATIVE (NEGATIVE)
[2022-12-14 04:14] LABS: ETHYL ALCOHOL (ETHANOL) < 0.003 % (0.000-0.010)
[2022-12-14 04:15] LABS: SALICYLATE LEVEL < 3.0 MG/DL (<30)
[2022-12-14 04:16] LABS: ACETAMINOPHEN LEVEL 5.3 UG/ML (10.0-20.0); ALBUMIN 3.4 G/DL (3.2-5.2); ALKALINE PHOSPHATASE 54 U/L (46-116); ALT/SGPT 34 U/L (7.0-40); AST/SGOT 31 U/L (<34); BILIRUBIN,DIRECT 0.1 MG/DL (<0.4); BILIRUBIN,TOTAL 0.4 MG/DL (0.3-1.2); BLOOD UREA NITROGEN 7 MG/DL (9-23); CALCIUM LEVEL 8.7 MG/DL (8.5-10.1); CARBON DIOXIDE LEVEL 25 MMOL/L (20-31); CHLORIDE LEVEL 106 MMOL/L (98-107); CREATININE FOR GFR 0.81 MG/DL (0.55-1.30); GLOMERULAR FILTRATION RATE > 60.0 (>60); GLUCOSE, FASTING 91 MG/DL (60-100); POTASSIUM SERUM 3.5 MMOL/L (3.5-5.1); SODIUM LEVEL 139 MMOL/L (136-145); TOTAL PROTEIN 6.6 G/DL (5.7-8.2)
[2022-12-14 04:18] LABS: THYROID STIMULATING HORMONE 2.119 uIU/ML (0.55-4.78)
[2022-12-14 04:21] LABS: HCG, SERUM QUALITATIVE NEGATIVE (NEGATIVE)
[2022-12-14] MEDS ORDERED: OLANZapine ORAL DISINTEGRATING TAB 5MG PO ONE (23:20)
[2022-12-14] MEDS ORDERED: diphenhydrAMINE 50MG/ML VIAL IM ONE (23:40)
[2022-12-14] MEDS ORDERED: MIDAZOLAM INJ 2MG/2ML VIAL IM ONE (23:40)
[2022-12-15] MEDS ORDERED: BENZ0.5T23 PO (08:12)
[2022-12-15] MEDS ORDERED: hydrOXYzine 50 MG TAB PO PRN (08:25)
[2022-12-15] MEDS ORDERED: traZODone 100 MG TAB PO PRN (08:25)
[2022-12-15] MEDS ORDERED: lamoTRIgine 25MG TAB PO SCH (09:00)
[2022-12-15] MEDS ORDERED: DIVALPROEX 500 MG TAB PO SCH (09:00)
[2022-12-15] MEDS ORDERED: buPROPion **XL** TABLET 150MG (WELLBUTRIN XL) PO SCH (09:00)
[2022-12-15] MEDS ORDERED: BENZTROPINE 0.5 MG TAB PO SCH (09:00)
[2022-12-15 13:45] VITALS: BP 104/56
[2022-12-15] MEDS ORDERED: SERTRALINE HCL 50 MG TAB PO SCH (21:00)
[2022-12-16] MEDS ORDERED: VENTAER INH (19:47)
== END 2022-12-15 13:50 | disposition home or self-care (01) ==
LOC: EDBD 00:42 → M ED 00:42
DX: S83.92XA Sprain of unspecified site of left knee, initial encounter (principal); S93.402A Sprain of unspecified ligament of left ankle, initial encounter; F19.10 Other psychoactive substance abuse, uncomplicated; X50.1XXA Overexertion from prolonged static or awkward postures, initial encounter; Y92.099 Unspecified place in other non-institutional residence as the place of occurrence of the external cause; E11.9 Type 2 diabetes mellitus without complications; J45.909 Unspecified asthma, uncomplicated; F90.9 Attention-deficit hyperactivity disorder, unspecified type; F20.9 Schizophrenia, unspecified; F60.3 Borderline personality disorder; F17.200 Nicotine dependence, unspecified, uncomplicated; F12.10 Cannabis abuse, uncomplicated; Z79.899 Other long term (current) drug therapy
CPT/HCPCS: 73564; 73610; 80048; 80076; 80143; 80307; 82077; 84443; 84703; 85027; 87635; 93005; 96372; 99285; J1200; J2060; J2250

== ENCOUNTER 2022-12-16 00:18 | Emergency (ER) | payer BC, MEDICAID ==
[~2022-12-16] VITALS: Ht 165.1 cm; Wt 94.6 kg
[2022-12-16 01:41] VITALS: BP 123/73
[2022-12-16] MEDS ORDERED: VENTAER INH (19:47)
== END 2022-12-16 02:37 | disposition left against medical advice (07) ==
LOC: M ED 00:18
DX: Z53.21 Procedure and treatment not carried out due to patient leaving prior to being seen by health care provider (principal)

== ENCOUNTER 2022-12-16 17:51 | Emergency (ER) | payer BC, MEDICAID ==
[~2022-12-16] VITALS: Ht 167.6 cm; Wt 118.2 kg
[2022-12-16] MEDS ORDERED: ALBUTEROL 90 MCG/ACT 8GM HFA INHALER INH ONE (19:15)
[2022-12-16] MEDS ORDERED: VENTAER INH (19:47)
[2022-12-16 19:54] VITALS: BP 61/96
== END 2022-12-16 20:00 | disposition home or self-care (01) ==
LOC: M ED 17:51 → EDBD 17:51 → M ED 20:00
DX: J45.909 Unspecified asthma, uncomplicated (principal); Z79.51 Long term (current) use of inhaled steroids; E11.9 Type 2 diabetes mellitus without complications; K21.9 Gastro-esophageal reflux disease without esophagitis; F20.9 Schizophrenia, unspecified; F31.9 Bipolar disorder, unspecified; F41.9 Anxiety disorder, unspecified; F90.9 Attention-deficit hyperactivity disorder, unspecified type; Z90.49 Acquired absence of other specified parts of digestive tract; F17.200 Nicotine dependence, unspecified, uncomplicated; E66.9 Obesity, unspecified; Z79.84 Long term (current) use of oral hypoglycemic drugs; Z79.899 Other long term (current) drug therapy

== ENCOUNTER 2022-12-17 02:26 | Emergency (ER) | payer BC, MEDICAID ==
[~2022-12-17 02:26] MED LIST changes: +VENTAER INH
[2022-12-17 03:27] VITALS: BP 115/59
== END 2022-12-17 05:07 | disposition left against medical advice (07) ==
LOC: EDBD 02:26 → M ED 02:26
DX: Z53.21 Procedure and treatment not carried out due to patient leaving prior to being seen by health care provider (principal)

== ENCOUNTER 2022-12-17 20:43 | Emergency (ER) | payer BC, MEDICAID ==
[~2022-12-17] VITALS: Ht 167.6 cm; Wt 118.0 kg
[2022-12-17] MEDS ORDERED: diphenhydrAMINE 50MG/ML VIAL IM ONE (21:00)
[2022-12-17] MEDS ORDERED: HALOPERIDOL 5MG/ML 1ML VIAL IM ONE (21:00)
[2022-12-17] MEDS ORDERED: MIDAZOLAM INJ 2MG/2ML VIAL IM ONE (21:00)
[2022-12-17 21:49] LABS: HEMATOCRIT 42.5 % (36.0-47.0); HEMOGLOBIN 13.2 g/dl (12.0-15.5); MEAN CORPUSCULAR HEMOGLOBIN 25.9 pg (27.0-33.0); MEAN CORPUSCULAR HGB CONC 31.1 g/dl (32.0-36.5); MEAN CORPUSCULAR VOLUME 83.3 fl (80.0-96.0); PLATELET COUNT, AUTOMATED 480 10^3/uL (150-450); WHITE BLOOD COUNT 12.8 10^3/uL (4.0-10.0)
[2022-12-17 22:00] VITALS: BP 132/60
[2022-12-17 22:10] LABS: METHADONE URINE NEGATIVE (NEGATIVE); OPIATES URINE NEGATIVE (NEGATIVE)
[2022-12-17 22:11] LABS: AMPHETAMINES LEVEL URINE NEGATIVE (NEGATIVE); BARBITURATES URINE NEGATIVE (NEGATIVE); BENZODIAZEPINES URINE NEGATIVE (NEGATIVE); CANNABINOIDS URINE NEGATIVE (NEGATIVE); PHENCYCLIDINE URINE NEGATIVE (NEGATIVE)
[2022-12-17 22:12] LABS: COCAINE METABOLITE URINE NEGATIVE (NEGATIVE); ETHYL ALCOHOL (ETHANOL) 0.066 % (0.000-0.010)
[2022-12-17 22:13] LABS: HCG, SERUM QUALITATIVE NEGATIVE (NEGATIVE)
[2022-12-17 22:14] LABS: SALICYLATE LEVEL < 3.0 MG/DL (<30)
[2022-12-17 22:15] LABS: ACETAMINOPHEN LEVEL < 2.0 UG/ML (10.0-20.0); ALBUMIN 3.8 G/DL (3.2-5.2); ALKALINE PHOSPHATASE 61 U/L (46-116); ALT/SGPT 30 U/L (7.0-40); AST/SGOT 23 U/L (<34); BILIRUBIN,DIRECT < 0.1 MG/DL (<0.4); BILIRUBIN,TOTAL 0.2 MG/DL (0.3-1.2); BLOOD UREA NITROGEN 7 MG/DL (9-23); CALCIUM LEVEL 8.8 MG/DL (8.5-10.1); CARBON DIOXIDE LEVEL 23 MMOL/L (20-31); CHLORIDE LEVEL 108 MMOL/L (98-107); CREATININE FOR GFR 0.71 MG/DL (0.55-1.30); GLOMERULAR FILTRATION RATE > 60.0 (>60); GLUCOSE, FASTING 93 MG/DL (60-100); SODIUM LEVEL 144 MMOL/L (136-145); TOTAL PROTEIN 7.3 G/DL (5.7-8.2)
[2022-12-17 22:17] LABS: THYROID STIMULATING HORMONE 1.624 uIU/ML (0.55-4.78)
== END 2022-12-18 06:22 | disposition home or self-care (01) ==
LOC: M ED 20:43 → EDBD 20:43 → M ED 12-18 06:22
DX: Z76.5 Malingerer [conscious simulation] (principal); F10.129 Alcohol abuse with intoxication, unspecified; F31.9 Bipolar disorder, unspecified; Z79.51 Long term (current) use of inhaled steroids; Z79.84 Long term (current) use of oral hypoglycemic drugs; Z79.899 Other long term (current) drug therapy
CPT/HCPCS: 36415; 80048; 80076; 80143; 80307; 82077; 84443; 84703; 85027; 87635; 96372; 99285; J1200; J1630; J2250

== ENCOUNTER 2022-12-18 20:25 | Emergency (ER) | payer BC, MEDICAID ==
[~2022-12-18] VITALS: Ht 167.6 cm; Wt 128.9 kg
[2022-12-18 20:47] VITALS: BP 160/80
== END 2022-12-18 23:03 | disposition home or self-care (01) ==
LOC: M ED 20:25
DX: Z76.5 Malingerer [conscious simulation] (principal); E11.9 Type 2 diabetes mellitus without complications; J45.909 Unspecified asthma, uncomplicated; F32.9 Major depressive disorder, single episode, unspecified; F90.9 Attention-deficit hyperactivity disorder, unspecified type; F20.9 Schizophrenia, unspecified; F17.200 Nicotine dependence, unspecified, uncomplicated; Z79.84 Long term (current) use of oral hypoglycemic drugs; Z79.899 Other long term (current) drug therapy

== ENCOUNTER 2022-12-19 13:12 | Emergency (ER) | payer BC, MEDICAID ==
[~2022-12-19] VITALS: Ht 167.6 cm; Wt 118.2 kg
[2022-12-19 14:33] LABS: HEMATOCRIT 41.4 % (36.0-47.0); HEMOGLOBIN 12.8 g/dl (12.0-15.5); MEAN CORPUSCULAR HEMOGLOBIN 25.8 pg (27.0-33.0); MEAN CORPUSCULAR HGB CONC 30.9 g/dl (32.0-36.5); MEAN CORPUSCULAR VOLUME 83.3 fl (80.0-96.0); PLATELET COUNT, AUTOMATED 390 10^3/uL (150-450); RED BLOOD COUNT 4.97 10^6/uL (4.00-5.40); WHITE BLOOD COUNT 8.5 10^3/uL (4.0-10.0)
[2022-12-19 14:51] LABS: ETHYL ALCOHOL (ETHANOL) 0.008 % (0.000-0.010)
[2022-12-19 14:53] LABS: ACETAMINOPHEN LEVEL < 2.0 UG/ML (10.0-20.0); SALICYLATE LEVEL < 3.0 MG/DL (<30)
[2022-12-19 14:57] LABS: HCG, SERUM QUALITATIVE NEGATIVE (NEGATIVE)
[2022-12-19 14:58] LABS: ALBUMIN 3.4 G/DL (3.2-5.2); ALKALINE PHOSPHATASE 55 U/L (46-116); ALT/SGPT 26 U/L (7.0-40); AST/SGOT 25 U/L (<34); BILIRUBIN,DIRECT < 0.1 MG/DL (<0.4); BILIRUBIN,TOTAL 0.3 MG/DL (0.3-1.2); BLOOD UREA NITROGEN 8 MG/DL (9-23); CALCIUM LEVEL 8.6 MG/DL (8.5-10.1); CARBON DIOXIDE LEVEL 28 MMOL/L (20-31); CHLORIDE LEVEL 107 MMOL/L (98-107); CREATININE FOR GFR 0.76 MG/DL (0.55-1.30); GLOMERULAR FILTRATION RATE > 60.0 (>60); GLUCOSE, FASTING 82 MG/DL (60-100); SODIUM LEVEL 141 MMOL/L (136-145); THYROID STIMULATING HORMONE 1.076 uIU/ML (0.55-4.78); TOTAL PROTEIN 6.6 G/DL (5.7-8.2)
[2022-12-19] MEDS ORDERED: HOME MED LIST COMPLETE! XX SCH (18:05)
[2022-12-19 19:28] LABS: AMPHETAMINES LEVEL URINE NEGATIVE (NEGATIVE); BARBITURATES URINE NEGATIVE (NEGATIVE); COCAINE METABOLITE URINE NEGATIVE (NEGATIVE); METHADONE URINE NEGATIVE (NEGATIVE); OPIATES URINE NEGATIVE (NEGATIVE); PHENCYCLIDINE URINE NEGATIVE (NEGATIVE)
[2022-12-19 19:29] LABS: CANNABINOIDS URINE NEGATIVE (NEGATIVE)
[2022-12-19 19:40] LABS: BENZODIAZEPINES URINE POSITIVE (NEGATIVE)
[2022-12-19 20:20] VITALS: BP 122/86
== END 2022-12-19 22:00 | disposition home or self-care (01) ==
LOC: M ED 13:12 → EDBD 13:12 → M ED 22:00
DX: F43.0 Acute stress reaction (principal); Z76.5 Malingerer [conscious simulation]; F32.A Depression, unspecified; G89.29 Other chronic pain; M25.579 Pain in unspecified ankle and joints of unspecified foot; F17.200 Nicotine dependence, unspecified, uncomplicated; Z90.49 Acquired absence of other specified parts of digestive tract; Z79.84 Long term (current) use of oral hypoglycemic drugs; Z79.899 Other long term (current) drug therapy

== ENCOUNTER 2022-12-20 00:26 | Emergency (ER) | payer BC, MEDICAID ==
[~2022-12-20] VITALS: Ht 167.6 cm; Wt 118.2 kg
[2022-12-20 00:31] VITALS: BP 133/86
== END 2022-12-20 04:36 | disposition left against medical advice (07) ==
LOC: M ED 00:26
DX: Z53.21 Procedure and treatment not carried out due to patient leaving prior to being seen by health care provider (principal)

== ENCOUNTER 2022-12-20 14:59 | Emergency (ER) | payer BC, MEDICAID ==
[~2022-12-20] VITALS: Ht 167.6 cm; Wt 118.2 kg
[2022-12-20 15:10] VITALS: BP 142/87
== END 2022-12-20 18:27 | disposition home or self-care (01) ==
LOC: M ED 14:59
DX: F43.0 Acute stress reaction (principal); R11.0 Nausea; F17.200 Nicotine dependence, unspecified, uncomplicated; Z79.84 Long term (current) use of oral hypoglycemic drugs; Z79.899 Other long term (current) drug therapy

== ENCOUNTER 2022-12-22 01:28 | Emergency (ER) | payer BC, MEDICAID ==
[2022-12-22 02:34] LABS: HEMATOCRIT 40.7 % (36.0-47.0); MEAN CORPUSCULAR HEMOGLOBIN 25.9 pg (27.0-33.0); MEAN CORPUSCULAR HGB CONC 31.9 g/dl (32.0-36.5); MEAN CORPUSCULAR VOLUME 81.1 fl (80.0-96.0); PLATELET COUNT, AUTOMATED 467 10^3/uL (150-450); RED BLOOD COUNT 5.02 10^6/uL (4.00-5.40); WHITE BLOOD COUNT 13.5 10^3/uL (4.0-10.0)
[2022-12-22 02:59] LABS: ETHYL ALCOHOL (ETHANOL) < 0.003 % (0.000-0.010)
[2022-12-22 03:01] LABS: ACETAMINOPHEN LEVEL < 2.0 UG/ML (10.0-20.0); SALICYLATE LEVEL < 3.0 MG/DL (<30)
[2022-12-22 03:09] LABS: AMPHETAMINES LEVEL URINE NEGATIVE (NEGATIVE); BARBITURATES URINE NEGATIVE (NEGATIVE); BENZODIAZEPINES URINE NEGATIVE (NEGATIVE); COCAINE METABOLITE URINE NEGATIVE (NEGATIVE); METHADONE URINE NEGATIVE (NEGATIVE); OPIATES URINE NEGATIVE (NEGATIVE); PHENCYCLIDINE URINE NEGATIVE (NEGATIVE)
[2022-12-22 03:13] LABS: HCG, SERUM QUALITATIVE NEGATIVE (NEGATIVE)
[2022-12-22 03:15] LABS: ALBUMIN 3.8 G/DL (3.2-5.2); ALKALINE PHOSPHATASE 68 U/L (46-116); ALT/SGPT 22 U/L (7.0-40); AST/SGOT 23 U/L (<34); BILIRUBIN,DIRECT < 0.1 MG/DL (<0.4); BILIRUBIN,TOTAL 0.2 MG/DL (0.3-1.2); BLOOD UREA NITROGEN 11 MG/DL (9-23); CALCIUM LEVEL 8.9 MG/DL (8.5-10.1); CARBON DIOXIDE LEVEL 20 MMOL/L (20-31); CHLORIDE LEVEL 104 MMOL/L (98-107); CPK CREATINE PHOSPHOKINASE 135 U/L (34-145); GLOMERULAR FILTRATION RATE > 60.0 (>60); GLUCOSE, FASTING 106 MG/DL (60-100); POTASSIUM SERUM 3.7 MMOL/L (3.5-5.1); SODIUM LEVEL 137 MMOL/L (136-145); THYROID STIMULATING HORMONE 3.162 uIU/ML (0.55-4.78)
[2022-12-22 03:15] LABS: CANNABINOIDS URINE POSITIVE (NEGATIVE)
[2022-12-22] MEDS ORDERED: MIDAZOLAM INJ 2MG/2ML VIAL IM ONE (03:50)
[2022-12-22] MEDS ORDERED: diphenhydrAMINE 50MG/ML VIAL IM ONE (03:50)
[2022-12-22] MEDS ORDERED: HALOPERIDOL 5MG/ML 1ML VIAL As Ordered ONE (03:55)
[2022-12-22] MEDS ORDERED: HALOPERIDOL 5MG/ML 1ML VIAL IM ONE (04:00)
[2022-12-22 05:29] LABS: TOTAL PROTEIN 7.3 G/DL (5.7-8.2)
[2022-12-22 16:13] VITALS: BP 134/77
== END 2022-12-22 20:00 | disposition home or self-care (01) ==
LOC: M ED 01:28
DX: F19.150 Other psychoactive substance abuse with psychoactive substance-induced psychotic disorder with delusions (principal); Z76.5 Malingerer [conscious simulation]; E11.9 Type 2 diabetes mellitus without complications; F31.9 Bipolar disorder, unspecified; F90.9 Attention-deficit hyperactivity disorder, unspecified type; Z79.84 Long term (current) use of oral hypoglycemic drugs; F17.200 Nicotine dependence, unspecified, uncomplicated; Z79.899 Other long term (current) drug therapy
CPT/HCPCS: 36415; 80048; 80076; 80143; 80307; 82077; 82550; 84443; 84703; 85027; 87635; 96372; 99285; J1200; J1630; J2250

== ENCOUNTER 2022-12-23 20:19 | Emergency (ER) | payer BC, MEDICAID ==
[~2022-12-23] VITALS: Ht 167.6 cm; Wt 127.5 kg
[2022-12-24 01:46] VITALS: BP 131/81
== END 2022-12-24 02:55 | disposition left against medical advice (07) ==
LOC: M ED 20:19
DX: R10.9 Unspecified abdominal pain (principal); Z53.21 Procedure and treatment not carried out due to patient leaving prior to being seen by health care provider

== ENCOUNTER 2022-12-30 00:19 | Emergency (ER) | payer BC, MEDICAID ==
[~2022-12-30] VITALS: Ht 167.6 cm; Wt 127.0 kg
[2022-12-30 00:41] VITALS: BP 120/73
== END 2022-12-30 03:23 | disposition left against medical advice (07) ==
LOC: M ED 00:19
DX: K08.89 Other specified disorders of teeth and supporting structures (principal); Z79.899 Other long term (current) drug therapy; Z79.84 Long term (current) use of oral hypoglycemic drugs

== ENCOUNTER 2022-12-30 16:14 | Emergency (ER) | payer BC, MEDICAID ==
[~2022-12-30] VITALS: Ht 167.6 cm; Wt 125.8 kg
[2022-12-30 16:22] VITALS: BP 142/72
[2022-12-30 17:56] LABS: HEMATOCRIT 40.2 % (36.0-47.0); HEMOGLOBIN 12.5 g/dl (12.0-15.5); MEAN CORPUSCULAR HEMOGLOBIN 25.8 pg (27.0-33.0); MEAN CORPUSCULAR HGB CONC 31.1 g/dl (32.0-36.5); MEAN CORPUSCULAR VOLUME 82.9 fl (80.0-96.0); PLATELET COUNT, AUTOMATED 426 10^3/uL (150-450); RED BLOOD COUNT 4.85 10^6/uL (4.00-5.40); WHITE BLOOD COUNT 8.6 10^3/uL (4.0-10.0)
[2022-12-30 18:01] LABS: HCG, SERUM QUALITATIVE NEGATIVE (NEGATIVE); VALPROIC ACID (DEPAKOTE) < 3.0 UG/ML (50.0-100.0)
[2022-12-30 18:03] LABS: SALICYLATE LEVEL < 3.0 MG/DL (<30)
[2022-12-30 18:16] LABS: ALBUMIN 3.8 G/DL (3.2-5.2); ALKALINE PHOSPHATASE 68 U/L (46-116); ALT/SGPT 22 U/L (7.0-40); BILIRUBIN,DIRECT 0.1 MG/DL (<0.4); BILIRUBIN,TOTAL 0.3 MG/DL (0.3-1.2); BLOOD UREA NITROGEN 8 MG/DL (9-23); CARBON DIOXIDE LEVEL 30 MMOL/L (20-31); CHLORIDE LEVEL 106 MMOL/L (98-107); CREATININE FOR GFR 0.75 MG/DL (0.55-1.30); GLOMERULAR FILTRATION RATE > 60.0 (>60); GLUCOSE, FASTING 88 MG/DL (60-100); POTASSIUM SERUM 4.2 MMOL/L (3.5-5.1); SODIUM LEVEL 140 MMOL/L (136-145); TOTAL PROTEIN 7.2 G/DL (5.7-8.2)
[2022-12-30 18:18] LABS: ACETAMINOPHEN LEVEL < 2.0 UG/ML (10.0-20.0); AST/SGOT 21 U/L (<34)
[2022-12-30 18:19] LABS: AMPHETAMINES LEVEL URINE NEGATIVE (NEGATIVE); BARBITURATES URINE NEGATIVE (NEGATIVE); BENZODIAZEPINES URINE NEGATIVE (NEGATIVE); COCAINE METABOLITE URINE NEGATIVE (NEGATIVE); METHADONE URINE NEGATIVE (NEGATIVE); OPIATES URINE NEGATIVE (NEGATIVE)
[2022-12-30 18:20] LABS: PHENCYCLIDINE URINE NEGATIVE (NEGATIVE)
[2022-12-30 18:21] LABS: CANNABINOIDS URINE POSITIVE (NEGATIVE)
[2022-12-30 19:29] LABS: ETHYL ALCOHOL (ETHANOL) 0.003 % (0.000-0.010)
[2022-12-30] MEDS ORDERED: HOME MED LIST COMPLETE! XX SCH (20:50)
== END 2022-12-31 00:03 | disposition home or self-care (01) ==
LOC: M ED 16:14
DX: F60.3 Borderline personality disorder (principal); E11.9 Type 2 diabetes mellitus without complications; J45.909 Unspecified asthma, uncomplicated; K21.9 Gastro-esophageal reflux disease without esophagitis; E66.9 Obesity, unspecified

== ENCOUNTER 2023-01-07 04:40 | Emergency (ER) | payer BC, MEDICAID ==
[~2023-01-07] VITALS: Ht 167.6 cm; Wt 126.6 kg
[2023-01-07 04:47] VITALS: BP 124/59
[2023-01-07] MEDS ORDERED: ASPIRIN 81MG CHEW TABLET PO ONE (07:40)
[2023-01-07] MEDS ORDERED: GI COCKTAIL 50ML BTL(HYOSCYAMINE/MAALOX/LIDOCAINE VISCOUS)(1:3:1) PO ONE (07:40)
[2023-01-07 08:40] LABS: BASO % 0.5 % (0.0-1.0); EOS # 0.1 10^3/uL (0.0-0.5); EOS % 1.3 % (0.0-3.0); HEMATOCRIT 37.5 % (36.0-47.0); HEMOGLOBIN 11.6 g/dl (12.0-15.5); LYMPH # 2.8 10^3/uL (1.5-5.0); LYMPH % 36.2 % (24.0-44.0); MEAN CORPUSCULAR HEMOGLOBIN 25.6 pg (27.0-33.0); MEAN CORPUSCULAR HGB CONC 30.9 g/dl (32.0-36.5); MEAN CORPUSCULAR VOLUME 82.6 fl (80.0-96.0); MONO # 0.4 10^3/uL (0.0-0.8); MONO % 5.1 % (2.0-8.0); NEUTROPHILS # 4.3 10^3/uL (1.5-8.5); NEUTROPHILS % 56.5 % (36.0-66.0); PLATELET COUNT, AUTOMATED 360 10^3/uL (150-450); RED BLOOD COUNT 4.54 10^6/uL (4.00-5.40); WHITE BLOOD COUNT 7.7 10^3/uL (4.0-10.0)
[2023-01-07 09:12] LABS: RSV AMPLIFICATION NEGATIVE (NEGATIVE)
[2023-01-07 09:12] LABS: THYROID STIMULATING HORMONE 2.715 uIU/ML (0.55-4.78)
[2023-01-07 09:25] LABS: ALBUMIN 3.4 G/DL (3.2-5.2); ALKALINE PHOSPHATASE 63 U/L (46-116); ALT/SGPT 16 U/L (7.0-40); AST/SGOT 35 U/L (<34); BILIRUBIN,DIRECT < 0.1 MG/DL (<0.4); BILIRUBIN,TOTAL 0.2 MG/DL (0.3-1.2); BLOOD UREA NITROGEN 10 MG/DL (9-23); CALCIUM LEVEL 8.9 MG/DL (8.5-10.1); CARBON DIOXIDE LEVEL 27 MMOL/L (20-31); CHLORIDE LEVEL 106 MMOL/L (98-107); CK-MB VALUE MASS < 1.0 NG/ML (<3.6); CPK CREATINE PHOSPHOKINASE 115 U/L (34-145); GLOMERULAR FILTRATION RATE > 60.0 (>60); GLUCOSE, FASTING 90 MG/DL (60-100); LIPASE 40 U/L (12-53); MB/CK RELATIVE INDEX 0.86 (< OR =4); POTASSIUM SERUM 4.9 MMOL/L (3.5-5.1); SODIUM LEVEL 141 MMOL/L (136-145); TOTAL PROTEIN 6.5 G/DL (5.7-8.2)
[2023-01-07 09:52] LABS: HCG, SERUM QUALITATIVE NEGATIVE (NEGATIVE)
[2023-01-07 10:28] LABS: CK-MB VALUE MASS < 1.0 NG/ML (<3.6)
[2023-01-07 10:31] LABS: CPK CREATINE PHOSPHOKINASE 74 U/L (34-145); MB/CK RELATIVE INDEX 1.35 (< OR =4)
== END 2023-01-07 11:27 | disposition left against medical advice (07) ==
LOC: EDBD 04:40 → M ED 04:40
DX: R07.9 Chest pain, unspecified (principal); E11.9 Type 2 diabetes mellitus without complications; J45.909 Unspecified asthma, uncomplicated; F90.9 Attention-deficit hyperactivity disorder, unspecified type; F31.9 Bipolar disorder, unspecified; F17.200 Nicotine dependence, unspecified, uncomplicated

== ENCOUNTER 2023-01-11 18:36 | Emergency (ER) | payer BC, MEDICAID ==
[~2023-01-11] VITALS: Ht 167.6 cm; Wt 118.0 kg
[2023-01-11 19:23] VITALS: BP 159/81
[2023-01-11 20:42] LABS: HEMATOCRIT 41.2 % (36.0-47.0); HEMOGLOBIN 12.8 g/dl (12.0-15.5); MEAN CORPUSCULAR HEMOGLOBIN 25.4 pg (27.0-33.0); MEAN CORPUSCULAR HGB CONC 31.1 g/dl (32.0-36.5); MEAN CORPUSCULAR VOLUME 81.7 fl (80.0-96.0); PLATELET COUNT, AUTOMATED 377 10^3/uL (150-450); RED BLOOD COUNT 5.04 10^6/uL (4.00-5.40); WHITE BLOOD COUNT 4.9 10^3/uL (4.0-10.0)
[2023-01-11 21:00] LABS: AMPHETAMINES LEVEL URINE NEGATIVE (NEGATIVE); BARBITURATES URINE NEGATIVE (NEGATIVE); BENZODIAZEPINES URINE NEGATIVE (NEGATIVE); COCAINE METABOLITE URINE NEGATIVE (NEGATIVE); METHADONE URINE NEGATIVE (NEGATIVE); OPIATES URINE NEGATIVE (NEGATIVE); PHENCYCLIDINE URINE NEGATIVE (NEGATIVE)
[2023-01-11 21:03] LABS: CANNABINOIDS URINE POSITIVE (NEGATIVE)
[2023-01-11 21:18] LABS: ETHYL ALCOHOL (ETHANOL) < 0.003 % (0.000-0.010)
[2023-01-11 21:19] LABS: ACETAMINOPHEN LEVEL < 2.0 UG/ML (10.0-20.0)
[2023-01-11 21:20] LABS: ALBUMIN 3.8 G/DL (3.2-5.2); ALKALINE PHOSPHATASE 68 U/L (46-116); ALT/SGPT 18 U/L (7.0-40); AST/SGOT 19 U/L (<34); BILIRUBIN,DIRECT 0.2 MG/DL (<0.4); BILIRUBIN,TOTAL 0.4 MG/DL (0.3-1.2); BLOOD UREA NITROGEN 11 MG/DL (9-23); CALCIUM LEVEL 9.1 MG/DL (8.5-10.1); CARBON DIOXIDE LEVEL 27 MMOL/L (20-31); CHLORIDE LEVEL 104 MMOL/L (98-107); CREATININE FOR GFR 0.76 MG/DL (0.55-1.30); GLOMERULAR FILTRATION RATE > 60.0 (>60); GLUCOSE, FASTING 82 MG/DL (60-100); POTASSIUM SERUM 3.5 MMOL/L (3.5-5.1); SALICYLATE LEVEL < 3.0 MG/DL (<30); SODIUM LEVEL 139 MMOL/L (136-145); TOTAL PROTEIN 7.3 G/DL (5.7-8.2)
[2023-01-11 21:23] LABS: THYROID STIMULATING HORMONE 0.953 uIU/ML (0.55-4.78)
== END 2023-01-11 23:27 | disposition home or self-care (01) ==
LOC: M ED 18:36
DX: F43.9 Reaction to severe stress, unspecified (principal)

== ENCOUNTER 2023-01-14 23:00 | Emergency (ER) | payer BC, MEDICAID ==
[~2023-01-14] VITALS: Ht 167.6 cm; Wt 118.2 kg
[2023-01-15] MEDS ORDERED: MIDAZOLAM INJ 2MG/2ML VIAL IM ONE (01:35)
[2023-01-15] MEDS ORDERED: HALOPERIDOL 5MG/ML 1ML VIAL IM ONE (01:35)
[2023-01-15] MEDS ORDERED: diphenhydrAMINE 50MG/ML VIAL IM ONE (01:35)
[2023-01-15] MEDS ORDERED: OLANZapine ORAL DISINTEGRATING TAB 5MG PO ONE (01:45)
[2023-01-15 01:52] LABS: HEMOGLOBIN 12.5 g/dl (12.0-15.5); MEAN CORPUSCULAR HEMOGLOBIN 25.2 pg (27.0-33.0); MEAN CORPUSCULAR HGB CONC 31.3 g/dl (32.0-36.5); MEAN CORPUSCULAR VOLUME 80.6 fl (80.0-96.0); PLATELET COUNT, AUTOMATED 366 10^3/uL (150-450); RED BLOOD COUNT 4.96 10^6/uL (4.00-5.40); WHITE BLOOD COUNT 6.8 10^3/uL (4.0-10.0)
[2023-01-15 02:14] LABS: AMPHETAMINES LEVEL URINE NEGATIVE (NEGATIVE); BARBITURATES URINE NEGATIVE (NEGATIVE); BENZODIAZEPINES URINE NEGATIVE (NEGATIVE); COCAINE METABOLITE URINE NEGATIVE (NEGATIVE); METHADONE URINE NEGATIVE (NEGATIVE); OPIATES URINE NEGATIVE (NEGATIVE); PHENCYCLIDINE URINE NEGATIVE (NEGATIVE)
[2023-01-15 02:16] LABS: CANNABINOIDS URINE POSITIVE (NEGATIVE); ETHYL ALCOHOL (ETHANOL) < 0.003 % (0.000-0.010)
[2023-01-15 02:18] LABS: ACETAMINOPHEN LEVEL < 2.0 UG/ML (10.0-20.0); SALICYLATE LEVEL < 3.0 MG/DL (<30)
[2023-01-15 02:21] LABS: ALBUMIN 3.8 G/DL (3.2-5.2); ALKALINE PHOSPHATASE 62 U/L (46-116); ALT/SGPT 18 U/L (7.0-40); AST/SGOT 19 U/L (<34); BILIRUBIN,DIRECT < 0.1 MG/DL (<0.4); BILIRUBIN,TOTAL 0.2 MG/DL (0.3-1.2); BLOOD UREA NITROGEN 12 MG/DL (9-23); CALCIUM LEVEL 9.4 MG/DL (8.5-10.1); CARBON DIOXIDE LEVEL 26 MMOL/L (20-31); CHLORIDE LEVEL 108 MMOL/L (98-107); CREATININE FOR GFR 0.79 MG/DL (0.55-1.30); GLOMERULAR FILTRATION RATE > 60.0 (>60); GLUCOSE, FASTING 93 MG/DL (60-100); HCG, SERUM QUALITATIVE NEGATIVE (NEGATIVE); POTASSIUM SERUM 3.6 MMOL/L (3.5-5.1); SODIUM LEVEL 140 MMOL/L (136-145); THYROID STIMULATING HORMONE 3.638 uIU/ML (0.55-4.78)
[2023-01-15 03:34] LABS: TOTAL PROTEIN 7.1 G/DL (5.7-8.2)
[2023-01-15 03:48] VITALS: BP 142/64
== END 2023-01-15 15:03 | disposition home or self-care (01) ==
LOC: M ED 23:00 → EDBD 23:00 → M ED 01-15 15:03
DX: F60.9 Personality disorder, unspecified (principal); Z76.5 Malingerer [conscious simulation]
CPT/HCPCS: 80048; 80076; 80143; 80307; 82077; 84443; 84703; 85027; 87635; 96372; 99285; J1200; J1630; J2250

== ENCOUNTER 2023-01-16 00:10 | Emergency (ER) | payer BC, MEDICAID ==
[~2023-01-16] VITALS: Ht 167.6 cm; Wt 118.2 kg
[2023-01-16 00:20] VITALS: BP 120/80
[2023-01-16] MEDS ORDERED: LORazepam 2 MG/ML 1ML VIAL IM STA (01:48)
[2023-01-16] MEDS ORDERED: diphenhydrAMINE 50MG/ML VIAL IM ONE (01:50)
[2023-01-16] MEDS ORDERED: HALOPERIDOL 5MG/ML 1ML VIAL IM ONE (01:50)
[2023-01-16 02:25] LABS: HEMATOCRIT 37.9 % (36.0-47.0); HEMOGLOBIN 11.9 g/dl (12.0-15.5); MEAN CORPUSCULAR HEMOGLOBIN 25.2 pg (27.0-33.0); MEAN CORPUSCULAR HGB CONC 31.4 g/dl (32.0-36.5); MEAN CORPUSCULAR VOLUME 80.3 fl (80.0-96.0); PLATELET COUNT, AUTOMATED 342 10^3/uL (150-450); RED BLOOD COUNT 4.72 10^6/uL (4.00-5.40); WHITE BLOOD COUNT 6.5 10^3/uL (4.0-10.0)
[2023-01-16 02:45] LABS: AMPHETAMINES LEVEL URINE NEGATIVE (NEGATIVE); BARBITURATES URINE NEGATIVE (NEGATIVE); COCAINE METABOLITE URINE NEGATIVE (NEGATIVE); METHADONE URINE NEGATIVE (NEGATIVE); OPIATES URINE NEGATIVE (NEGATIVE); PHENCYCLIDINE URINE NEGATIVE (NEGATIVE)
[2023-01-16 02:47] LABS: ETHYL ALCOHOL (ETHANOL) < 0.003 % (0.000-0.010)
[2023-01-16 02:49] LABS: ACETAMINOPHEN LEVEL < 2.0 UG/ML (10.0-20.0); SALICYLATE LEVEL < 3.0 MG/DL (<30)
[2023-01-16 03:01] LABS: BENZODIAZEPINES URINE POSITIVE (NEGATIVE); CANNABINOIDS URINE POSITIVE (NEGATIVE)
[2023-01-16 03:19] LABS: ALBUMIN 3.6 G/DL (3.2-5.2); ALKALINE PHOSPHATASE 57 U/L (46-116); ALT/SGPT 19 U/L (7.0-40); AST/SGOT 19 U/L (<34); BILIRUBIN,DIRECT < 0.1 MG/DL (<0.4); BILIRUBIN,TOTAL 0.2 MG/DL (0.3-1.2); BLOOD UREA NITROGEN 12 MG/DL (9-23); CALCIUM LEVEL 8.8 MG/DL (8.5-10.1); CARBON DIOXIDE LEVEL 24 MMOL/L (20-31); CHLORIDE LEVEL 109 MMOL/L (98-107); CREATININE FOR GFR 0.72 MG/DL (0.55-1.30); GLOMERULAR FILTRATION RATE > 60.0 (>60); GLUCOSE, FASTING 92 MG/DL (60-100); SODIUM LEVEL 139 MMOL/L (136-145); THYROID STIMULATING HORMONE 3.139 uIU/ML (0.55-4.78); TOTAL PROTEIN 6.8 G/DL (5.7-8.2)
[2023-01-16 03:42] LABS: HCG, SERUM QUALITATIVE NEGATIVE (NEGATIVE)
[2023-01-16 04:26] LABS: RSV AMPLIFICATION NEGATIVE (NEGATIVE)
== END 2023-01-16 11:51 | disposition home or self-care (01) ==
LOC: M ED 00:10 → EDBD 00:10 → M ED 11:51
DX: F60.9 Personality disorder, unspecified (principal); Z76.5 Malingerer [conscious simulation]; F17.200 Nicotine dependence, unspecified, uncomplicated
CPT/HCPCS: 36415; 80048; 80076; 80143; 80307; 82077; 84443; 84703; 85027; 87631; 87635; 96372; 99284; J1200; J1630; J2060

== ENCOUNTER 2023-01-17 03:33 | Emergency (ER) | payer BC, MEDICAID ==
[~2023-01-17] VITALS: Ht 167.6 cm; Wt 118.2 kg
[2023-01-17] MEDS ORDERED: HALOPERIDOL 5MG/ML 1ML VIAL IM ONE (03:45)
[2023-01-17] MEDS ORDERED: diphenhydrAMINE 50MG/ML VIAL IM ONE (03:45)
[2023-01-17 04:25] VITALS: BP 122/71
[2023-01-17 04:26] LABS: HEMATOCRIT 37.9 % (36.0-47.0); HEMOGLOBIN 12.2 g/dl (12.0-15.5); MEAN CORPUSCULAR HEMOGLOBIN 25.7 pg (27.0-33.0); MEAN CORPUSCULAR HGB CONC 32.2 g/dl (32.0-36.5); PLATELET COUNT, AUTOMATED 345 10^3/uL (150-450); RED BLOOD COUNT 4.74 10^6/uL (4.00-5.40)
[2023-01-17 04:46] LABS: AMPHETAMINES LEVEL URINE NEGATIVE (NEGATIVE); BARBITURATES URINE NEGATIVE (NEGATIVE); PHENCYCLIDINE URINE NEGATIVE (NEGATIVE)
[2023-01-17 04:47] LABS: COCAINE METABOLITE URINE NEGATIVE (NEGATIVE); ETHYL ALCOHOL (ETHANOL) < 0.003 % (0.000-0.010); METHADONE URINE NEGATIVE (NEGATIVE); OPIATES URINE NEGATIVE (NEGATIVE)
[2023-01-17 04:48] LABS: BENZODIAZEPINES URINE POSITIVE (NEGATIVE); CANNABINOIDS URINE POSITIVE (NEGATIVE)
[2023-01-17 04:49] LABS: ACETAMINOPHEN LEVEL < 2.0 UG/ML (10.0-20.0); ALBUMIN 3.7 G/DL (3.2-5.2); ALKALINE PHOSPHATASE 58 U/L (46-116); ALT/SGPT 21 U/L (7.0-40); AST/SGOT 22 U/L (<34); BILIRUBIN,DIRECT < 0.1 MG/DL (<0.4); BILIRUBIN,TOTAL 0.2 MG/DL (0.3-1.2); BLOOD UREA NITROGEN 10 MG/DL (9-23); CALCIUM LEVEL 8.4 MG/DL (8.5-10.1); CARBON DIOXIDE LEVEL 23 MMOL/L (20-31); CHLORIDE LEVEL 111 MMOL/L (98-107); CREATININE FOR GFR 0.69 MG/DL (0.55-1.30); GLOMERULAR FILTRATION RATE > 60.0 (>60); GLUCOSE, FASTING 94 MG/DL (60-100); HCG, SERUM QUALITATIVE NEGATIVE (NEGATIVE); POTASSIUM SERUM 3.7 MMOL/L (3.5-5.1); SALICYLATE LEVEL < 3.0 MG/DL (<30); SODIUM LEVEL 142 MMOL/L (136-145); TOTAL PROTEIN 6.8 G/DL (5.7-8.2)
[2023-01-17 04:52] LABS: THYROID STIMULATING HORMONE 2.387 uIU/ML (0.55-4.78)
== END 2023-01-17 13:33 | disposition home or self-care (01) ==
LOC: M ED 03:33
DX: F60.3 Borderline personality disorder (principal); Z76.5 Malingerer [conscious simulation]
CPT/HCPCS: 80048; 80076; 80143; 80307; 82077; 84443; 84703; 85027; 87635; 96372; 99284; J1200; J1630

== ENCOUNTER 2023-01-17 22:49 | Emergency (ER) | payer BC, MEDICAID ==
[~2023-01-17] VITALS: Ht 167.6 cm; Wt 124.1 kg
[2023-01-17 22:56] VITALS: BP 135/84
== END 2023-01-18 00:02 | disposition left against medical advice (07) ==
LOC: M ED 22:49
DX: R10.9 Unspecified abdominal pain (principal); Z53.21 Procedure and treatment not carried out due to patient leaving prior to being seen by health care provider

== ENCOUNTER 2023-01-19 23:25 | Emergency (ER) | payer BC, MEDICAID ==
[2023-01-19 23:33] VITALS: BP 165/80
== END 2023-01-20 08:37 | disposition home or self-care (01) ==
LOC: M ED 23:25
DX: Z76.5 Malingerer [conscious simulation] (principal)

== ENCOUNTER 2023-01-20 23:12 | Emergency (ER) | payer BC, MEDICAID ==
[~2023-01-20 23:12] MED LIST changes: +BENZ2TAB48 PO; -BENZ2TAB5 PO; -SENN-111 PO; +SENN-188 PO
[2023-01-21 00:23] LABS: RSV AMPLIFICATION NEGATIVE (NEGATIVE)
[2023-01-21 09:34] VITALS: BP 147/72
== END 2023-01-21 11:59 | disposition home or self-care (01) ==
LOC: EDBD 23:12 → M ED 23:12
DX: F60.3 Borderline personality disorder (principal); Z76.5 Malingerer [conscious simulation]; E11.9 Type 2 diabetes mellitus without complications; F32.A Depression, unspecified; F41.9 Anxiety disorder, unspecified; F17.200 Nicotine dependence, unspecified, uncomplicated; Z98.84 Bariatric surgery status

== ENCOUNTER 2023-01-27 22:21 | Emergency (ER) | payer BC, MEDICAID ==
[~2023-01-27] VITALS: Ht 167.6 cm; Wt 118.2 kg
[2023-01-27 22:28] VITALS: BP 126/87
== END 2023-01-28 03:04 | disposition home or self-care (01) ==
LOC: EDBD 22:21 → M ED 22:21
DX: Z76.5 Malingerer [conscious simulation] (principal); F60.3 Borderline personality disorder

== ENCOUNTER 2023-02-02 21:41 | Emergency (ER) | payer BC, MEDICAID ==
[~2023-02-02] VITALS: Ht 167.6 cm; Wt 117.1 kg
[2023-02-02 21:50] VITALS: BP 109/89
== END 2023-02-03 01:59 | disposition left against medical advice (07) ==
LOC: M ED 21:41
DX: R04.2 Hemoptysis (principal); Z53.21 Procedure and treatment not carried out due to patient leaving prior to being seen by health care provider

== ENCOUNTER 2023-02-05 23:47 | Emergency (ER) | payer BC, MEDICAID ==
[~2023-02-05] VITALS: Ht 167.6 cm; Wt 122.8 kg
[2023-02-06 11:59] VITALS: BP 122/67
== END 2023-02-06 12:28 | disposition home or self-care (01) ==
LOC: M ED 23:47
DX: F43.9 Reaction to severe stress, unspecified (principal); F31.9 Bipolar disorder, unspecified; F20.9 Schizophrenia, unspecified; F90.9 Attention-deficit hyperactivity disorder, unspecified type; F17.200 Nicotine dependence, unspecified, uncomplicated; F12.90 Cannabis use, unspecified, uncomplicated; Z79.899 Other long term (current) drug therapy; Z79.84 Long term (current) use of oral hypoglycemic drugs

== ENCOUNTER 2023-02-06 22:45 | Emergency (ER) | payer BC, MEDICAID ==
[2023-02-07 07:34] VITALS: BP 131/88
== END 2023-02-07 07:52 | disposition home or self-care (01) ==
LOC: M ED 22:45
DX: F43.9 Reaction to severe stress, unspecified (principal); Z79.899 Other long term (current) drug therapy

== ENCOUNTER 2023-02-08 22:19 | Emergency (ER) | payer BC, MEDICAID ==
[~2023-02-08] VITALS: Ht 167.6 cm; Wt 120.8 kg
[2023-02-09 02:21] VITALS: BP 129/68
== END 2023-02-09 04:15 | disposition left against medical advice (07) ==
LOC: EDBD 22:19 → M ED 22:19
DX: R05.9 Cough, unspecified (principal); Z53.21 Procedure and treatment not carried out due to patient leaving prior to being seen by health care provider

== ENCOUNTER 2023-02-14 21:08 | Emergency (ER) | payer BC, MEDICAID ==
[~2023-02-14] VITALS: Ht 167.6 cm; Wt 121.6 kg
[~2023-02-14 21:08] MED LIST changes: +BENZ0.5T2; +BENZ0.5T2 PO; -BENZ0.5T23; -BENZ0.5T23 PO
== END 2023-02-14 22:29 | disposition home or self-care (01) ==
LOC: M ED 21:08
DX: F31.9 Bipolar disorder, unspecified (principal); F20.9 Schizophrenia, unspecified; J45.909 Unspecified asthma, uncomplicated; F12.90 Cannabis use, unspecified, uncomplicated

== ENCOUNTER 2023-02-18 21:18 | Emergency (ER) | payer BC, MEDICAID ==
[~2023-02-18] VITALS: Ht 167.6 cm; Wt 121.2 kg
[2023-02-19 06:17] VITALS: BP 129/60
== END 2023-02-19 14:51 | disposition home or self-care (01) ==
LOC: EDBD 21:18 → M ED 21:18
DX: F43.9 Reaction to severe stress, unspecified (principal); F31.9 Bipolar disorder, unspecified

== ENCOUNTER 2023-02-22 20:50 | Emergency (ER) | payer BC, MEDICAID ==
[2023-02-22 20:51] VITALS: BP 136/75
== END 2023-02-22 23:19 | disposition left against medical advice (07) ==
LOC: M ED 20:50
DX: R09.81 Nasal congestion (principal); Z53.21 Procedure and treatment not carried out due to patient leaving prior to being seen by health care provider

== ENCOUNTER 2023-02-23 20:27 | Emergency (ER) | payer BC, MEDICAID ==
[~2023-02-23] VITALS: Ht 167.6 cm; Wt 119.5 kg
[2023-02-23 20:31] VITALS: BP 132/80
[2023-02-25] MEDS ORDERED: IBUP-1022 PO (08:11)
== END 2023-02-24 02:02 | disposition left against medical advice (07) ==
LOC: EDBD 20:27 → M ED 20:27
DX: R07.89 Other chest pain (principal); Z53.21 Procedure and treatment not carried out due to patient leaving prior to being seen by health care provider

== ENCOUNTER 2023-02-25 03:41 | Emergency (ER) | payer BC, MEDICAID ==
[2023-02-25] MEDS ORDERED: IBUPROFEN 800 MG TAB PO ONE (04:20)
[2023-02-25] MEDS ORDERED: IBUP-1022 PO (08:11)
[2023-02-25 08:53] VITALS: BP 137/82
== END 2023-02-25 08:56 | disposition home or self-care (01) ==
LOC: M ED 03:41 → EDBD 03:41 → M ED 08:56
DX: F60.3 Borderline personality disorder (principal); K08.89 Other specified disorders of teeth and supporting structures; F43.9 Reaction to severe stress, unspecified

== ENCOUNTER 2023-02-25 21:40 | Emergency (ER) | payer BC, MEDICAID ==
[~2023-02-25] VITALS: Ht 167.6 cm; Wt 119.8 kg
[~2023-02-25 21:40] MED LIST changes: +IBUP-1022 PO
[2023-02-25] MEDS ORDERED: IBUPROFEN 600MG TAB PO ONE (23:10)
[2023-02-26 06:02] VITALS: BP 126/85
[2023-02-26] MEDS ORDERED: IBUPROFEN 600MG TAB PO ONE (06:30)
== END 2023-02-26 06:38 | disposition home or self-care (01) ==
LOC: M ED 21:40 → EDBD 21:40 → M ED 02-26 06:38
DX: F43.9 Reaction to severe stress, unspecified (principal); K08.89 Other specified disorders of teeth and supporting structures; F32.9 Major depressive disorder, single episode, unspecified; F31.9 Bipolar disorder, unspecified; F17.200 Nicotine dependence, unspecified, uncomplicated; Z79.899 Other long term (current) drug therapy

== ENCOUNTER 2023-02-26 21:34 | Emergency (ER) | payer BC, MEDICAID ==
[~2023-02-26] VITALS: Ht 167.6 cm; Wt 118.7 kg
[2023-02-26 21:34] VITALS: BP 141/76
[2023-02-26] MEDS ORDERED: IBUPROFEN 800 MG TAB PO ONE (21:55)
== END 2023-02-27 01:17 | disposition left against medical advice (07) ==
LOC: M ED 21:34
DX: K08.89 Other specified disorders of teeth and supporting structures (principal); Z53.21 Procedure and treatment not carried out due to patient leaving prior to being seen by health care provider

== ENCOUNTER 2023-02-27 15:38 | Emergency (ER) | payer BC, MEDICAID ==
[~2023-02-27] VITALS: Ht 167.6 cm; Wt 119.5 kg
[2023-02-27 15:39] VITALS: BP 131/72
== END 2023-02-27 17:44 | disposition home or self-care (01) ==
LOC: M ED 15:38
DX: F19.10 Other psychoactive substance abuse, uncomplicated (principal); E11.9 Type 2 diabetes mellitus without complications; J45.909 Unspecified asthma, uncomplicated; F32.A Depression, unspecified; F41.9 Anxiety disorder, unspecified; F17.200 Nicotine dependence, unspecified, uncomplicated; F12.90 Cannabis use, unspecified, uncomplicated; Z79.899 Other long term (current) drug therapy; Z79.84 Long term (current) use of oral hypoglycemic drugs

== ENCOUNTER 2023-03-15 09:00 | Emergency (ER) | payer BC, MEDICAID ==
[~2023-03-15] VITALS: Ht 167.6 cm; Wt 117.7 kg
[2023-03-15 09:00] VITALS: BP 122/67
[2023-03-15] MEDS ORDERED: IBUPROFEN 100MG 5ML ORAL SUSP UDC PO ONE (10:20)
== END 2023-03-15 11:45 | disposition home or self-care (01) ==
LOC: M ED 09:00
DX: S60.221A Contusion of right hand, initial encounter (principal); W19.XXXA Unspecified fall, initial encounter; Y92.410 Unspecified street and highway as the place of occurrence of the external cause; Y93.89 Activity, other specified; Y99.8 Other external cause status

== ENCOUNTER 2023-03-20 20:24 | Emergency (ER) | payer BC, OTHER ==
[2023-03-20 20:26] VITALS: BP 144/76
== END 2023-03-20 21:03 | disposition left against medical advice (07) ==
LOC: M ED 20:24
DX: S69.90XA Unspecified injury of unspecified wrist, hand and finger(s), initial encounter (principal); X58.XXXA Exposure to other specified factors, initial encounter; Y92.89 Other specified places as the place of occurrence of the external cause; Y93.89 Activity, other specified; Y99.8 Other external cause status; Z53.21 Procedure and treatment not carried out due to patient leaving prior to being seen by health care provider

== ENCOUNTER 2023-03-20 23:17 | Emergency (ER) | payer BC, OTHER ==
[~2023-03-20] VITALS: Ht 167.6 cm; Wt 117.7 kg
[2023-03-20 23:34] VITALS: BP 148/80; TEMP 99.5; O2SAT 97
[2023-03-21 00:07] LABS: HEMATOCRIT 37.6 % (36.0-47.0); HEMOGLOBIN 11.7 g/dl (12.0-15.5); MEAN CORPUSCULAR HEMOGLOBIN 25.1 pg (27.0-33.0); MEAN CORPUSCULAR HGB CONC 31.1 g/dl (32.0-36.5); MEAN CORPUSCULAR VOLUME 80.7 fl (80.0-96.0); PLATELET COUNT, AUTOMATED 362 10^3/uL (150-450); RED BLOOD COUNT 4.66 10^6/uL (4.00-5.40); WHITE BLOOD COUNT 10.8 10^3/uL (4.0-10.0)
[2023-03-21 00:27] LABS: AMPHETAMINES LEVEL URINE NEGATIVE (NEGATIVE); BARBITURATES URINE NEGATIVE (NEGATIVE); BENZODIAZEPINES URINE NEGATIVE (NEGATIVE); COCAINE METABOLITE URINE NEGATIVE (NEGATIVE); METHADONE URINE NEGATIVE (NEGATIVE)
[2023-03-21 00:28] LABS: CANNABINOIDS URINE NEGATIVE (NEGATIVE); OPIATES URINE NEGATIVE (NEGATIVE); PHENCYCLIDINE URINE NEGATIVE (NEGATIVE)
[2023-03-21 00:30] LABS: ETHYL ALCOHOL (ETHANOL) < 0.003 % (0.000-0.010)
[2023-03-21 00:32] LABS: ACETAMINOPHEN LEVEL < 2.0 UG/ML (10.0-20.0); ALBUMIN 3.8 G/DL (3.2-5.2); ALKALINE PHOSPHATASE 60 U/L (46-116); ALT/SGPT 18 U/L (7.0-40); AST/SGOT 16 U/L (<34); BILIRUBIN,DIRECT < 0.1 MG/DL (<0.4); BILIRUBIN,TOTAL 0.3 MG/DL (0.3-1.2); BLOOD UREA NITROGEN 8 MG/DL (9-23); CALCIUM LEVEL 8.8 MG/DL (8.5-10.1); CARBON DIOXIDE LEVEL 24 MMOL/L (20-31); CHLORIDE LEVEL 110 MMOL/L (98-107); CREATININE FOR GFR 0.76 MG/DL (0.55-1.30); GLOMERULAR FILTRATION RATE > 60.0 (>60); GLUCOSE, FASTING 99 MG/DL (60-100); POTASSIUM SERUM 3.8 MMOL/L (3.5-5.1); SALICYLATE LEVEL 3.2 MG/DL (<30); SODIUM LEVEL 143 MMOL/L (136-145); TOTAL PROTEIN 6.6 G/DL (5.7-8.2)
[2023-03-21 00:33] LABS: THYROID STIMULATING HORMONE 2.554 uIU/ML (0.55-4.78)
[2023-03-21 01:18] LABS: HCG, SERUM QUALITATIVE NEGATIVE (NEGATIVE)
== END 2023-03-21 07:48 | disposition home or self-care (01) ==
LOC: M ED 23:17
DX: F43.9 Reaction to severe stress, unspecified (principal)

== ENCOUNTER 2023-03-29 22:39 | Emergency (ER) | payer BC, OTHER ==
[~2023-03-29] VITALS: Ht 172.7 cm; Wt 120.0 kg
[2023-03-30] MEDS ORDERED: NAPR-837 PO (07:43)
[2023-03-30 08:02] VITALS: BP 131/70; TEMP 97.6; O2SAT 100
== END 2023-03-30 08:30 | disposition home or self-care (01) ==
LOC: EDBD 22:39 → M ED 22:39
DX: S83.92XA Sprain of unspecified site of left knee, initial encounter (principal); X50.0XXA Overexertion from strenuous movement or load, initial encounter; Y92.009 Unspecified place in unspecified non-institutional (private) residence as the place of occurrence of the external cause; Y93.E5 Activity, floor mopping and cleaning; Y99.8 Other external cause status; F17.200 Nicotine dependence, unspecified, uncomplicated

== ENCOUNTER 2023-04-01 01:02 | Emergency (ER) | payer BC, OTHER ==
[~2023-04-01] VITALS: Ht 167.6 cm; Wt 118.2 kg
[~2023-04-01 01:02] MED LIST changes: +NAPR-837 PO
[2023-04-01 01:07] VITALS: BP 130/70; TEMP 97; O2SAT 100
[2023-04-01] MEDS ORDERED: KETOROLAC 30 MG/ML 1ML VIAL IV ONE (08:15)
[2023-04-01] MEDS ORDERED: NS 1,000 ML IV ONE (08:15)
== END 2023-04-01 09:00 | disposition home or self-care (01) ==
LOC: M ED 01:02 → EDBD 01:02 → M ED 09:00
DX: F01-F99 Mental, behavioral and neurodevelopmental disorders (principal); K21.9 Gastro-esophageal reflux disease without esophagitis; F17.200 Nicotine dependence, unspecified, uncomplicated

== ENCOUNTER 2023-04-09 20:23 | Emergency (ER) | payer BC, OTHER ==
[~2023-04-09] VITALS: Ht 167.6 cm; Wt 118.2 kg
[2023-04-09 20:43] VITALS: BP 138/88; TEMP 99.2; O2SAT 100
== END 2023-04-10 00:22 | disposition left against medical advice (07) ==
LOC: M ED 20:23
DX: Z53.21 Procedure and treatment not carried out due to patient leaving prior to being seen by health care provider (principal)

== ENCOUNTER 2023-04-18 02:43 | Emergency (ER) | payer BC, OTHER ==
[~2023-04-18] VITALS: Ht 167.6 cm; Wt 116.0 kg
[2023-04-18 02:53] VITALS: BP 126/69; TEMP 98.4; O2SAT 98
== END 2023-04-18 08:41 | disposition home or self-care (01) ==
LOC: M ED 02:43 → EDBD 02:43 → M ED 08:41
DX: M25.571 Pain in right ankle and joints of right foot (principal); F43.9 Reaction to severe stress, unspecified; K21.9 Gastro-esophageal reflux disease without esophagitis; F60.3 Borderline personality disorder; Z76.5 Malingerer [conscious simulation]; F17.200 Nicotine dependence, unspecified, uncomplicated

== ENCOUNTER 2023-04-29 00:31 | Emergency (ER) | payer BC, OTHER ==
[~2023-04-29] VITALS: Ht 167.6 cm; Wt 118.2 kg
[2023-04-29 00:38] VITALS: BP 134/76; TEMP 98.2; O2SAT 100
== END 2023-04-29 05:59 | disposition left against medical advice (07) ==
LOC: M ED 00:31
DX: R07.9 Chest pain, unspecified (principal); Z53.21 Procedure and treatment not carried out due to patient leaving prior to being seen by health care provider

== ENCOUNTER 2023-05-11 20:55 | Emergency (ER) | payer BC, OTHER ==
[~2023-05-11] VITALS: Ht 165.1 cm; Wt 118.0 kg
[2023-05-11] MEDS ORDERED: ONDANSETRON 4MG ORAL DISINTEGRATING TAB PO ONE (23:30)
[2023-05-12 07:55] VITALS: BP 127/82; TEMP 98.2; O2SAT 99
== END 2023-05-12 07:59 | disposition home or self-care (01) ==
LOC: M ED 20:55
DX: R04.0 Epistaxis (principal); J45.909 Unspecified asthma, uncomplicated; K21.9 Gastro-esophageal reflux disease without esophagitis; F41.9 Anxiety disorder, unspecified; F17.200 Nicotine dependence, unspecified, uncomplicated; Z79.899 Other long term (current) drug therapy

== ENCOUNTER 2023-05-15 14:56 | Emergency (ER) | payer BC, OTHER ==
[~2023-05-15] VITALS: Ht 167.6 cm; Wt 113.6 kg
[2023-05-15] MEDS ORDERED: NS 1,000 ML IV ONE (16:25)
[2023-05-15] MEDS ORDERED: KETOROLAC 30 MG/ML 1ML VIAL IV ONE (16:25)
[2023-05-15 16:55] LABS: BASO % 0.4 % (0.0-1.0); EOS # 0.2 10^3/uL (0.0-0.5); EOS % 2.1 % (0.0-3.0); HEMATOCRIT 41.9 % (36.0-47.0); HEMOGLOBIN 13.4 g/dl (12.0-15.5); LYMPH # 2.4 10^3/uL (1.5-5.0); LYMPH % 25.6 % (24.0-44.0); MEAN CORPUSCULAR HEMOGLOBIN 26.2 pg (27.0-33.0); MONO # 0.4 10^3/uL (0.0-0.8); MONO % 4.7 % (2.0-8.0); NEUTROPHILS # 6.2 10^3/uL (1.5-8.5); NEUTROPHILS % 66.9 % (36.0-66.0); PLATELET COUNT, AUTOMATED 321 10^3/uL (150-450); RED BLOOD COUNT 5.11 10^6/uL (4.00-5.40); WHITE BLOOD COUNT 9.2 10^3/uL (4.0-10.0)
[2023-05-15 17:24] LABS: ALBUMIN 3.8 G/DL (3.2-5.2); BILIRUBIN,DIRECT 0.1 MG/DL (<0.4); BILIRUBIN,TOTAL 0.4 MG/DL (0.3-1.2); TOTAL PROTEIN 6.8 G/DL (5.7-8.2)
[2023-05-15] MEDS ORDERED: ISOVUE-370 76% 100ML VIAL As Ordered ONE (17:25)
[2023-05-15] MEDS ORDERED: ONDA4TAB6 PO (19:06)
[2023-05-15 19:34] VITALS: BP 128/72; TEMP 98; O2SAT 100
== END 2023-05-15 19:37 | disposition home or self-care (01) ==
LOC: EDBD 14:56 → M ED 14:56
DX: I88.0 Nonspecific mesenteric lymphadenitis (principal); E11.9 Type 2 diabetes mellitus without complications; K21.9 Gastro-esophageal reflux disease without esophagitis; J45.909 Unspecified asthma, uncomplicated; F90.9 Attention-deficit hyperactivity disorder, unspecified type; F31.9 Bipolar disorder, unspecified; F20.9 Schizophrenia, unspecified; F41.9 Anxiety disorder, unspecified; F32.A Depression, unspecified; F17.210 Nicotine dependence, cigarettes, uncomplicated; Z79.899 Other long term (current) drug therapy
CPT/HCPCS: 74177; 80047; 80076; 81001; 83690; 84702; 85025; 96374; 99284; J1885; Q9967

== ENCOUNTER 2023-05-22 22:08 | Emergency (ER) | payer BC, OTHER ==
[~2023-05-22] VITALS: Ht 167.6 cm; Wt 97.7 kg
[~2023-05-22 22:08] MED LIST changes: +ONDA4TAB6 PO
[2023-05-23 07:41] VITALS: BP 144/90; TEMP 98; O2SAT 97
== END 2023-05-23 08:15 | disposition home or self-care (01) ==
LOC: M ED 22:08
DX: M23.92 Unspecified internal derangement of left knee (principal); Z88.8 Allergy status to other drugs, medicaments and biological substances; J45.909 Unspecified asthma, uncomplicated; F41.9 Anxiety disorder, unspecified; F32.A Depression, unspecified; F31.9 Bipolar disorder, unspecified; F90.9 Attention-deficit hyperactivity disorder, unspecified type; Z79.899 Other long term (current) drug therapy

== ENCOUNTER → 2023-05-25 | Emergency (ER) | payer BC, OTHER ==
[~2023-05-25] VITALS: Ht 167.6 cm; Wt 97.7 kg
[2023-05-25 20:45] VITALS: BP 138/98; TEMP 98.2; O2SAT 100
== END | disposition left against medical advice (07) ==
LOC: M ED 20:39
DX: Z53.21 Procedure and treatment not carried out due to patient leaving prior to being seen by health care provider (principal)

== ENCOUNTER 2023-07-25 20:14 | Emergency (ER) | payer BC, OTHER ==
[~2023-07-25] VITALS: Ht 170.2 cm; Wt 118.2 kg
[2023-07-25] MEDS ORDERED: HALO10TA20 PO (20:59)
[2023-07-25] MEDS ORDERED: SERT50TA29 PO (20:59)
[2023-07-25] MEDS ORDERED: HOME MED LIST COMPLETE! XX SCH (21:00)
[2023-07-25 21:20] LABS: HEMATOCRIT 38.3 % (36.0-47.0); HEMOGLOBIN 12.4 g/dl (12.0-15.5); MEAN CORPUSCULAR HEMOGLOBIN 27.6 pg (27.0-33.0); MEAN CORPUSCULAR HGB CONC 32.4 g/dl (32.0-36.5); MEAN CORPUSCULAR VOLUME 85.1 fl (80.0-96.0); PLATELET COUNT, AUTOMATED 334 10^3/uL (150-450); WHITE BLOOD COUNT 9.1 10^3/uL (4.0-10.0)
[2023-07-25 21:44] LABS: ETHYL ALCOHOL (ETHANOL) < 0.003 % (0.000-0.010)
[2023-07-25 21:45] LABS: SALICYLATE LEVEL < 3.0 MG/DL (<30)
[2023-07-25 21:46] LABS: ACETAMINOPHEN LEVEL < 2.0 UG/ML (10.0-20.0)
[2023-07-25 21:48] LABS: THYROID STIMULATING HORMONE 2.036 uIU/ML (0.55-4.78)
[2023-07-25 22:07] LABS: ALBUMIN 3.4 G/DL (3.2-5.2); ALKALINE PHOSPHATASE 64 U/L (46-116); ALT/SGPT 28 U/L (7.0-40); AST/SGOT 23 U/L (<34); BILIRUBIN,DIRECT < 0.1 MG/DL (<0.4); BILIRUBIN,TOTAL 0.2 MG/DL (0.3-1.2); BLOOD UREA NITROGEN 12 MG/DL (9-23); CALCIUM LEVEL 8.6 MG/DL (8.5-10.1); CARBON DIOXIDE LEVEL 26 MMOL/L (20-31); CHLORIDE LEVEL 109 MMOL/L (98-107); CPK CREATINE PHOSPHOKINASE 112 U/L (34-145); CREATININE FOR GFR 0.72 MG/DL (0.55-1.30); GLOMERULAR FILTRATION RATE > 60.0 (>60); GLUCOSE, FASTING 86 MG/DL (60-100); POTASSIUM SERUM 3.7 MMOL/L (3.5-5.1); SODIUM LEVEL 140 MMOL/L (136-145); TOTAL PROTEIN 6.5 G/DL (5.7-8.2)
[2023-07-25 22:11] LABS: HCG, SERUM QUALITATIVE NEGATIVE (NEGATIVE)
[2023-07-26 02:25] LABS: AMPHETAMINES LEVEL URINE NEGATIVE (NEGATIVE)
[2023-07-26 02:26] LABS: BARBITURATES URINE NEGATIVE (NEGATIVE); BENZODIAZEPINES URINE NEGATIVE (NEGATIVE); CANNABINOIDS URINE NEGATIVE (NEGATIVE); COCAINE METABOLITE URINE NEGATIVE (NEGATIVE); METHADONE URINE NEGATIVE (NEGATIVE); OPIATES URINE NEGATIVE (NEGATIVE); PHENCYCLIDINE URINE NEGATIVE (NEGATIVE)
[2023-07-26 09:22] VITALS: BP 132/64; TEMP 98.4; O2SAT 97
== END 2023-07-26 09:24 | disposition home or self-care (01) ==
LOC: M ED 20:14
DX: F60.3 Borderline personality disorder (principal); Z76.5 Malingerer [conscious simulation]; F17.290 Nicotine dependence, other tobacco product, uncomplicated

== ENCOUNTER 2023-08-29 16:37 | Emergency (ER) | payer BC, OTHER ==
[~2023-08-29] VITALS: Ht 170.2 cm; Wt 118.2 kg
[~2023-08-29 16:37] MED LIST changes: +HALO10TA20 PO
[2023-08-29 16:38] VITALS: TEMP 96.6; O2SAT 100
[2023-08-29] MEDS ORDERED: MECLIZINE 25 MG TABLET PO ONE (17:20)
[2023-08-29 17:55] LABS: BASO % 0.5 % (0.0-1.0); EOS # 0.2 10^3/uL (0.0-0.5); EOS % 2.6 % (0.0-3.0); HEMATOCRIT 43.3 % (36.0-47.0); HEMOGLOBIN 13.8 g/dl (12.0-15.5); LYMPH # 2.9 10^3/uL (1.5-5.0); LYMPH % 35.7 % (24.0-44.0); MEAN CORPUSCULAR HEMOGLOBIN 27.5 pg (27.0-33.0); MEAN CORPUSCULAR HGB CONC 31.9 g/dl (32.0-36.5); MEAN CORPUSCULAR VOLUME 86.4 fl (80.0-96.0); MONO # 0.4 10^3/uL (0.0-0.8); MONO % 4.9 % (2.0-8.0); NEUTROPHILS # 4.6 10^3/uL (1.5-8.5); NEUTROPHILS % 55.9 % (36.0-66.0); PLATELET COUNT, AUTOMATED 353 10^3/uL (150-450); RED BLOOD COUNT 5.01 10^6/uL (4.00-5.40); WHITE BLOOD COUNT 8.2 10^3/uL (4.0-10.0)
[2023-08-29 18:25] LABS: CK-MB VALUE MASS < 1.0 NG/ML (<3.6)
[2023-08-29 18:26] LABS: CPK CREATINE PHOSPHOKINASE 118 U/L (34-145); MB/CK RELATIVE INDEX 0.84 (< OR =4)
[2023-08-29 19:24] VITALS: BP 125/73
[2023-08-29] MEDS ORDERED: MECL-209 PO (19:51)
[2023-08-30] MEDS ORDERED: AMOX875T2 PO (20:32)
[2023-08-30] MEDS ORDERED: ANBE20GE TOP (20:33)
== END 2023-08-29 20:15 | disposition home or self-care (01) ==
LOC: M ED 16:37
DX: H81.4 Vertigo of central origin (principal)

== ENCOUNTER 2023-08-30 18:16 | Emergency (ER) | payer BC, OTHER ==
[~2023-08-30] VITALS: Ht 172.7 cm; Wt 120.4 kg
[~2023-08-30 18:16] MED LIST changes: +MECL-209 PO
[2023-08-30] MEDS ORDERED: AUGMENTIN 875 MG TAB PO ONE (20:30)
[2023-08-30] MEDS ORDERED: AMOX875T2 PO (20:32)
[2023-08-30] MEDS ORDERED: ANBE20GE TOP (20:33)
[2023-08-30 20:47] VITALS: BP 132/76; TEMP 98.2; O2SAT 100
== END 2023-08-30 20:59 | disposition home or self-care (01) ==
LOC: M ED 18:16
DX: K03.89 Other specified diseases of hard tissues of teeth (principal)

== ENCOUNTER 2023-09-22 19:02 | Emergency (ER) | payer BC, OTHER ==
[~2023-09-22] VITALS: Ht 170.2 cm; Wt 118.2 kg
[~2023-09-22 19:02] MED LIST changes: +ANBE20GE TOP
[2023-09-22 19:45] LABS: BASO % 0.3 % (0.0-1.0); EOS # 0.2 10^3/uL (0.0-0.5); HEMATOCRIT 38.3 % (36.0-47.0); HEMOGLOBIN 12.5 g/dl (12.0-15.5); LYMPH % 32.1 % (24.0-44.0); MEAN CORPUSCULAR HEMOGLOBIN 27.7 pg (27.0-33.0); MEAN CORPUSCULAR HGB CONC 32.6 g/dl (32.0-36.5); MEAN CORPUSCULAR VOLUME 84.9 fl (80.0-96.0); MONO # 0.4 10^3/uL (0.0-0.8); MONO % 4.4 % (2.0-8.0); NEUTROPHILS # 5.6 10^3/uL (1.5-8.5); NEUTROPHILS % 60.9 % (36.0-66.0); PLATELET COUNT, AUTOMATED 302 10^3/uL (150-450); RED BLOOD COUNT 4.51 10^6/uL (4.00-5.40); WHITE BLOOD COUNT 9.2 10^3/uL (4.0-10.0)
[2023-09-22 20:02] LABS: LIPASE 39 U/L (12-53)
[2023-09-22 20:04] LABS: ALBUMIN 3.5 G/DL (3.2-5.2); ALKALINE PHOSPHATASE 58 U/L (46-116); ALT/SGPT 30 U/L (7.0-40); AST/SGOT 24 U/L (<34); BILIRUBIN,DIRECT 0.1 MG/DL (<0.4); BILIRUBIN,TOTAL 0.3 MG/DL (0.3-1.2); BLOOD UREA NITROGEN 7 MG/DL (9-23); CARBON DIOXIDE LEVEL 25 MMOL/L (20-31); CHLORIDE LEVEL 111 MMOL/L (98-107); GLOMERULAR FILTRATION RATE > 60.0 (>60); GLUCOSE, FASTING 90 MG/DL (60-100); POTASSIUM SERUM 3.7 MMOL/L (3.5-5.1); SODIUM LEVEL 143 MMOL/L (136-145); TOTAL PROTEIN 6.4 G/DL (5.7-8.2)
[2023-09-22 21:30] VITALS: BP 142/84; TEMP 98.4; O2SAT 99
[2023-09-22] MEDS ORDERED: ACETAMINOPHEN TAB 650MG DOSE (2X325MG) PO ONE (22:30)
[2023-09-22] MEDS ORDERED: ISOVUE-370 76% 100ML VIAL As Ordered ONE (22:31)
== END 2023-09-22 23:45 | disposition home or self-care (01) ==
LOC: M ED 19:02 → EDBD 19:02 → M ED 23:45
DX: R10.12 Left upper quadrant pain (principal); W50.0XXA Accidental hit or strike by another person, initial encounter; Y92.009 Unspecified place in unspecified non-institutional (private) residence as the place of occurrence of the external cause; Y93.9 Activity, unspecified; Y99.9 Unspecified external cause status; F17.200 Nicotine dependence, unspecified, uncomplicated; N83.291 Other ovarian cyst, right side; N85.4 Malposition of uterus
CPT/HCPCS: 74177; 80048; 80076; 81001; 83690; 85025; 99284; Q9967

== ENCOUNTER 2023-09-25 14:56 | Emergency (ER) | payer BC, OTHER ==
[2023-09-25] MEDS ORDERED: SERT25TA85 PO (15:09)
[2023-09-25 18:52] VITALS: BP 132/60; TEMP 98.1; O2SAT 97
== END 2023-09-25 19:08 | disposition home or self-care (01) ==
LOC: M ED 14:56
DX: M25.562 Pain in left knee (principal); Y92.019 Unspecified place in single-family (private) house as the place of occurrence of the external cause; W19.XXXA Unspecified fall, initial encounter; Y93.9 Activity, unspecified; Z79.899 Other long term (current) drug therapy; Z79.2 Long term (current) use of antibiotics; Y99.8 Other external cause status

== ENCOUNTER 2023-09-28 23:01 | Emergency (ER) | payer BC, OTHER ==
[~2023-09-28] VITALS: Ht 170.2 cm; Wt 121.9 kg
[~2023-09-28 23:01] MED LIST changes: +SERT25TA85 PO
[2023-09-28 23:49] LABS: BASO % 0.3 % (0.0-1.0); EOS # 0.2 10^3/uL (0.0-0.5); EOS % 1.5 % (0.0-3.0); HEMATOCRIT 39.1 % (36.0-47.0); HEMOGLOBIN 12.7 g/dl (12.0-15.5); LYMPH # 3.4 10^3/uL (1.5-5.0); LYMPH % 34.9 % (24.0-44.0); MEAN CORPUSCULAR HGB CONC 32.5 g/dl (32.0-36.5); MEAN CORPUSCULAR VOLUME 86.1 fl (80.0-96.0); MONO # 0.5 10^3/uL (0.0-0.8); MONO % 4.6 % (2.0-8.0); NEUTROPHILS # 5.7 10^3/uL (1.5-8.5); NEUTROPHILS % 58.3 % (36.0-66.0); PLATELET COUNT, AUTOMATED 355 10^3/uL (150-450); RED BLOOD COUNT 4.54 10^6/uL (4.00-5.40); WHITE BLOOD COUNT 9.8 10^3/uL (4.0-10.0)
[2023-09-29 00:15] LABS: CPK CREATINE PHOSPHOKINASE 157 U/L (34-145)
[2023-09-29 00:16] LABS: BLOOD UREA NITROGEN 10 MG/DL (9-23); CALCIUM LEVEL 8.8 MG/DL (8.5-10.1); CARBON DIOXIDE LEVEL 28 MMOL/L (20-31); CHLORIDE LEVEL 106 MMOL/L (98-107); CK-MB VALUE MASS < 1.0 NG/ML (<3.6); CREATININE FOR GFR 0.66 MG/DL (0.55-1.30); GLOMERULAR FILTRATION RATE > 60.0 (>60); GLUCOSE, FASTING 78 MG/DL (60-100); MB/CK RELATIVE INDEX 0.63 (< OR =4); POTASSIUM SERUM 3.6 MMOL/L (3.5-5.1); SODIUM LEVEL 141 MMOL/L (136-145)
[2023-09-29 02:01] LABS: CK-MB VALUE MASS 1.5 NG/ML (<3.6)
[2023-09-29 02:02] LABS: CPK CREATINE PHOSPHOKINASE 157 U/L (34-145); MB/CK RELATIVE INDEX 0.95 (< OR =4)
[2023-09-29 05:51] VITALS: BP 132/70; TEMP 97.8; O2SAT 100
[2023-09-29] MEDS ORDERED: ACETAMINOPHEN TAB 650MG DOSE (2X325MG) PO ONE (06:30)
[2023-09-29] MEDS ORDERED: ALBU6.7H6 INH (06:43)
[2023-09-29] MEDS ORDERED: ACET325C5 PO (06:43)
[2023-09-29] MEDS ORDERED: IBUP-1022 PO (06:43)
== END 2023-09-29 06:59 | disposition home or self-care (01) ==
LOC: EDBD 23:01 → M ED 23:01
DX: R07.9 Chest pain, unspecified (principal); R94.31 Abnormal electrocardiogram [ECG] [EKG]; J45.909 Unspecified asthma, uncomplicated; F17.290 Nicotine dependence, other tobacco product, uncomplicated

== ENCOUNTER 2023-09-30 23:13 | Emergency (ER) | payer BC, OTHER ==
[~2023-09-30] VITALS: Ht 170.2 cm; Wt 118.0 kg
[~2023-09-30 23:13] MED LIST changes: +ACET325C5 PO; +ALBU6.7H6 INH
[2023-10-01 00:28] LABS: ETHYL ALCOHOL (ETHANOL) < 0.003 % (0.000-0.010)
[2023-10-01 00:30] LABS: ALBUMIN 3.6 G/DL (3.2-5.2); ALKALINE PHOSPHATASE 55 U/L (46-116); ALT/SGPT 16 U/L (7.0-40); AST/SGOT 16 U/L (<34); BILIRUBIN,DIRECT < 0.1 MG/DL (<0.4); BILIRUBIN,TOTAL 0.3 MG/DL (0.3-1.2); BLOOD UREA NITROGEN 10 MG/DL (9-23); CALCIUM LEVEL 8.8 MG/DL (8.5-10.1); CARBON DIOXIDE LEVEL 24 MMOL/L (20-31); CHLORIDE LEVEL 106 MMOL/L (98-107); CREATININE FOR GFR 0.63 MG/DL (0.55-1.30); GLOMERULAR FILTRATION RATE > 60.0 (>60); GLUCOSE, FASTING 84 MG/DL (60-100); POTASSIUM SERUM 3.7 MMOL/L (3.5-5.1); SALICYLATE LEVEL < 3.0 MG/DL (<30); SODIUM LEVEL 137 MMOL/L (136-145); TOTAL PROTEIN 6.6 G/DL (5.7-8.2)
[2023-10-01 00:32] LABS: THYROID STIMULATING HORMONE 4.149 uIU/ML (0.55-4.78)
[2023-10-01 00:41] LABS: HEMATOCRIT 37.1 % (36.0-47.0); HEMOGLOBIN 12.1 g/dl (12.0-15.5); MEAN CORPUSCULAR HEMOGLOBIN 28.3 pg (27.0-33.0); MEAN CORPUSCULAR HGB CONC 32.6 g/dl (32.0-36.5); MEAN CORPUSCULAR VOLUME 86.7 fl (80.0-96.0); PLATELET COUNT, AUTOMATED 347 10^3/uL (150-450); RED BLOOD COUNT 4.28 10^6/uL (4.00-5.40); WHITE BLOOD COUNT 9.6 10^3/uL (4.0-10.0)
[2023-10-01 06:21] VITALS: TEMP 97.6
[2023-10-01 07:52] LABS: AMPHETAMINES LEVEL URINE NEGATIVE (NEGATIVE); BARBITURATES URINE NEGATIVE (NEGATIVE); BENZODIAZEPINES URINE NEGATIVE (NEGATIVE); CANNABINOIDS URINE NEGATIVE (NEGATIVE); COCAINE METABOLITE URINE NEGATIVE (NEGATIVE); METHADONE URINE NEGATIVE (NEGATIVE); OPIATES URINE NEGATIVE (NEGATIVE); PHENCYCLIDINE URINE NEGATIVE (NEGATIVE)
[2023-10-01] MEDS ORDERED: MED REC IN PROGRESS XX SCH (08:10)
[2023-10-01] MEDS ORDERED: TRAZ-252 PO (08:13)
[2023-10-01] MEDS ORDERED: ARIP1TAB6 PO (08:13)
[2023-10-01] MEDS ORDERED: HOME MED LIST COMPLETE! XX SCH (08:20)
[2023-10-01 10:33] VITALS: BP 135/75; O2SAT 100
[2023-10-02] MEDS ORDERED: PERC5TAB12 PO (06:55)
[2023-10-02] MEDS ORDERED: ACET1TAB55 PO (06:55)
[2023-10-02] MEDS ORDERED: IBUP80TA PO (06:55)
== END 2023-10-01 10:35 | disposition home or self-care (01) ==
LOC: M ED 23:13
DX: F43.0 Acute stress reaction (principal); Z79.899 Other long term (current) drug therapy; Z79.1 Long term (current) use of non-steroidal anti-inflammatories (NSAID); Z79.51 Long term (current) use of inhaled steroids; Z79.891 Long term (current) use of opiate analgesic

== ENCOUNTER 2023-10-02 02:42 | Emergency (ER) | payer OTHER ==
[~2023-10-02] VITALS: Ht 170.2 cm; Wt 118.2 kg
[~2023-10-02 02:42] MED LIST changes: +ARIP1TAB6 PO
[2023-10-02] MEDS ORDERED: ACET1TAB55 PO (06:55)
[2023-10-02] MEDS ORDERED: PERC5TAB12 PO (06:55)
[2023-10-02] MEDS ORDERED: IBUP80TA PO (06:55)
[2023-10-02 07:00] VITALS: BP 116/58; TEMP 98.3; O2SAT 100
== END 2023-10-02 07:30 | disposition home or self-care (01) ==
LOC: M ED 02:42
DX: K03.81 Cracked tooth (principal); F17.290 Nicotine dependence, other tobacco product, uncomplicated; Z79.899 Other long term (current) drug therapy

== ENCOUNTER 2023-10-04 05:11 | Emergency (ER) | payer BC, OTHER ==
[~2023-10-04] VITALS: Ht 170.2 cm; Wt 124.8 kg
[~2023-10-04 05:11] MED LIST changes: +ACET1TAB55 PO; +IBUP80TA PO; +PERC5TAB12 PO
[2023-10-04 05:12] VITALS: BP 134/76; TEMP 98; O2SAT 98
[2023-10-04] MEDS ORDERED: ACETAMINOPHEN 500 MG TAB PO ONE (06:10)
[2023-10-04 06:18] LABS: RSV AMPLIFICATION NEGATIVE (NEGATIVE)
== END 2023-10-04 07:34 | disposition home or self-care (01) ==
LOC: EDBD 05:11 → M ED 05:11
DX: U07.1 COVID-19 (principal)

== ENCOUNTER 2023-10-11 17:19 | Emergency (ER) | payer BC, OTHER ==
[~2023-10-11] VITALS: Ht 170.2 cm; Wt 116.5 kg
[2023-10-11] MEDS ORDERED: ONDANSETRON 4MG ORAL DISINTEGRATING TAB PO ONE (19:40)
[2023-10-11 20:35] LABS: RSV AMPLIFICATION NEGATIVE (NEGATIVE)
[2023-10-11] MEDS ORDERED: ONDA4TAB6 PO (21:06)
[2023-10-11 21:29] VITALS: BP 137/72; TEMP 97.6; O2SAT 97
== END 2023-10-11 21:33 | disposition home or self-care (01) ==
LOC: M ED 17:19
DX: R11.2 Nausea with vomiting, unspecified (principal); R51.9 Headache, unspecified; E11.9 Type 2 diabetes mellitus without complications; K21.9 Gastro-esophageal reflux disease without esophagitis; J45.909 Unspecified asthma, uncomplicated; F41.9 Anxiety disorder, unspecified; F90.9 Attention-deficit hyperactivity disorder, unspecified type; F60.3 Borderline personality disorder; F32.A Depression, unspecified; F20.9 Schizophrenia, unspecified; F17.200 Nicotine dependence, unspecified, uncomplicated; Z79.51 Long term (current) use of inhaled steroids; Z79.899 Other long term (current) drug therapy

== ENCOUNTER 2023-10-26 10:37 | Emergency (ER) | payer BC, OTHER ==
[~2023-10-26] VITALS: Ht 170.2 cm; Wt 118.2 kg
[2023-10-26] MEDS ORDERED: IBUPROFEN 800 MG TAB PO ONE (12:10)
[2023-10-26 12:52] VITALS: BP 138/83; TEMP 97.8; O2SAT 100
== END 2023-10-26 12:54 | disposition home or self-care (01) ==
LOC: M ED 10:37 → EDBD 10:37 → M ED 12:54
DX: S83.92XA Sprain of unspecified site of left knee, initial encounter (principal); W00.0XXA Fall on same level due to ice and snow, initial encounter; Y92.214 College as the place of occurrence of the external cause; Y93.9 Activity, unspecified; Y99.8 Other external cause status; E11.9 Type 2 diabetes mellitus without complications; K21.9 Gastro-esophageal reflux disease without esophagitis; J45.909 Unspecified asthma, uncomplicated; F17.200 Nicotine dependence, unspecified, uncomplicated; F17.290 Nicotine dependence, other tobacco product, uncomplicated

== ENCOUNTER 2023-11-01 21:01 | Emergency (ER) | payer BC, OTHER ==
[~2023-11-01] VITALS: Ht 170.2 cm; Wt 119.7 kg
[2023-11-02 08:29] VITALS: BP 122/65; TEMP 96.9; O2SAT 98
== END 2023-11-02 08:38 | disposition home or self-care (01) ==
LOC: EDBD 21:01 → M ED 21:01
DX: R10.9 Unspecified abdominal pain (principal); F17.210 Nicotine dependence, cigarettes, uncomplicated; Z79.899 Other long term (current) drug therapy; Z79.1 Long term (current) use of non-steroidal anti-inflammatories (NSAID); Z79.51 Long term (current) use of inhaled steroids; Z79.891 Long term (current) use of opiate analgesic

== ENCOUNTER 2023-11-07 03:13 | Emergency (ER) | payer BC, OTHER ==
[~2023-11-07 03:13] MED LIST changes: -RISP-7; +RISP0.5T82
[2023-11-07 07:35] VITALS: BP 129/79; TEMP 98.4; O2SAT 99
== END 2023-11-07 07:49 | disposition home or self-care (01) ==
LOC: EDBD 03:13 → M ED 03:13 → EDSEX 03:13 → M ED 07:49
DX: S60.221A Contusion of right hand, initial encounter (principal); W00.0XXA Fall on same level due to ice and snow, initial encounter; Y92.410 Unspecified street and highway as the place of occurrence of the external cause; Y93.9 Activity, unspecified; Y99.9 Unspecified external cause status; F17.200 Nicotine dependence, unspecified, uncomplicated

== ENCOUNTER 2023-11-17 02:32 | Emergency (ER) | payer OTHER ==
[~2023-11-17] VITALS: Ht 170.2 cm; Wt 121.9 kg
[2023-11-17 02:32] VITALS: BP 159/75; TEMP 98.6; O2SAT 100
[~2023-11-17 02:32] MED LIST changes: +RISP-7; -RISP0.5T82
[2023-11-17] MEDS ORDERED: SERT50TA29 (21:23)
[2023-11-17] MEDS ORDERED: metformin PO (21:23)
[2023-11-17] MEDS ORDERED: HALO10TA20 (21:23)
== END 2023-11-17 03:34 | disposition left against medical advice (07) ==
LOC: M ED 02:32
DX: Z53.21 Procedure and treatment not carried out due to patient leaving prior to being seen by health care provider (principal)

== ENCOUNTER 2023-11-17 20:40 | Emergency (ER) | payer BC, OTHER ==
[~2023-11-17] VITALS: Ht 170.2 cm; Wt 121.0 kg
[~2023-11-17 20:40] MED LIST changes: -RISP-7; +RISP0.5T82
[2023-11-17] MEDS ORDERED: metformin PO (21:23)
[2023-11-17] MEDS ORDERED: SERT50TA29 (21:23)
[2023-11-17] MEDS ORDERED: HALO10TA20 (21:23)
[2023-11-17 22:04] LABS: BASO % 0.3 % (0.0-1.0); EOS # 0.1 10^3/uL (0.0-0.5); EOS % 0.7 % (0.0-3.0); HEMATOCRIT 38.7 % (36.0-47.0); HEMOGLOBIN 12.3 g/dl (12.0-15.5); LYMPH # 3.5 10^3/uL (1.5-5.0); LYMPH % 37.2 % (24.0-44.0); MEAN CORPUSCULAR HEMOGLOBIN 27.5 pg (27.0-33.0); MEAN CORPUSCULAR HGB CONC 31.8 g/dl (32.0-36.5); MEAN CORPUSCULAR VOLUME 86.4 fl (80.0-96.0); MONO # 0.5 10^3/uL (0.0-0.8); NEUTROPHILS # 5.3 10^3/uL (1.5-8.5); NEUTROPHILS % 56.4 % (36.0-66.0); PLATELET COUNT, AUTOMATED 351 10^3/uL (150-450); RED BLOOD COUNT 4.48 10^6/uL (4.00-5.40); WHITE BLOOD COUNT 9.5 10^3/uL (4.0-10.0)
[2023-11-17 22:35] LABS: BLOOD UREA NITROGEN 10 MG/DL (9-23); CALCIUM LEVEL 9.2 MG/DL (8.5-10.1); CARBON DIOXIDE LEVEL 30 MMOL/L (20-31); CHLORIDE LEVEL 104 MMOL/L (98-107); CREATININE FOR GFR 0.64 MG/DL (0.55-1.30); GLOMERULAR FILTRATION RATE > 60.0 (>60); GLUCOSE, FASTING 82 MG/DL (60-100); POTASSIUM SERUM 3.9 MMOL/L (3.5-5.1); SODIUM LEVEL 139 MMOL/L (136-145)
[2023-11-17 22:37] LABS: THYROID STIMULATING HORMONE 2.706 uIU/ML (0.55-4.78)
[2023-11-18 00:16] VITALS: BP 129/70; TEMP 98.5; O2SAT 99
== END 2023-11-18 00:15 | disposition home or self-care (01) ==
LOC: M ED 20:40
DX: R53.81 Other malaise (principal); E11.9 Type 2 diabetes mellitus without complications; K21.9 Gastro-esophageal reflux disease without esophagitis; F20.9 Schizophrenia, unspecified; F90.9 Attention-deficit hyperactivity disorder, unspecified type; F32.9 Major depressive disorder, single episode, unspecified; F17.200 Nicotine dependence, unspecified, uncomplicated; Z79.899 Other long term (current) drug therapy

== ENCOUNTER 2023-11-20 17:35 | Emergency (ER) | payer BC, OTHER ==
[~2023-11-20] VITALS: Ht 170.2 cm; Wt 116.8 kg
[~2023-11-20 17:35] MED LIST changes: +HALO10TA20; +SERT50TA29; +metformin PO
[2023-11-20 17:43] VITALS: BP 147/71; TEMP 98; O2SAT 100
[2023-11-20] MEDS: ONDANSETRON 4MG ORAL DISINTEGRATING TAB PO ONE (18:28)
== END 2023-11-20 19:10 | disposition home or self-care (01) ==
LOC: EDBD 17:35 → M ED 17:35
DX: R11.0 Nausea (principal); F17.200 Nicotine dependence, unspecified, uncomplicated; Z79.899 Other long term (current) drug therapy

== ENCOUNTER 2023-12-14 18:07 | Emergency (ER) | payer BC, OTHER ==
[~2023-12-14] VITALS: Ht 170.2 cm; Wt 118.2 kg
[2023-12-14 20:55] VITALS: BP 118/67; TEMP 98.6; O2SAT 98
== END 2023-12-14 23:15 | disposition left against medical advice (07) ==
LOC: EDBD 18:07 → M ED 18:07
DX: Z53.21 Procedure and treatment not carried out due to patient leaving prior to being seen by health care provider (principal)

== ENCOUNTER 2023-12-22 21:57 | Emergency (ER) | payer OTHER ==
[~2023-12-22] VITALS: Ht 167.6 cm; Wt 100.0 kg
[~2023-12-22 21:57] MED LIST changes: -HALO10TA20
[2023-12-22 22:17] VITALS: BP 137/80; TEMP 98; O2SAT 98
[2023-12-22 22:40] LABS: HEMATOCRIT 40.4 % (36.0-47.0); HEMOGLOBIN 13.1 g/dl (12.0-15.5); MEAN CORPUSCULAR HEMOGLOBIN 27.6 pg (27.0-33.0); MEAN CORPUSCULAR HGB CONC 32.4 g/dl (32.0-36.5); MEAN CORPUSCULAR VOLUME 85.1 fl (80.0-96.0); PLATELET COUNT, AUTOMATED 402 10^3/uL (150-450); RED BLOOD COUNT 4.75 10^6/uL (4.00-5.40); WHITE BLOOD COUNT 9.9 10^3/uL (4.0-10.0)
[2023-12-22 22:56] LABS: AMPHETAMINES LEVEL URINE NEGATIVE (NEGATIVE); BARBITURATES URINE NEGATIVE (NEGATIVE); BENZODIAZEPINES URINE NEGATIVE (NEGATIVE); COCAINE METABOLITE URINE NEGATIVE (NEGATIVE)
[2023-12-22 22:57] LABS: CANNABINOIDS URINE NEGATIVE (NEGATIVE); METHADONE URINE NEGATIVE (NEGATIVE); OPIATES URINE NEGATIVE (NEGATIVE); PHENCYCLIDINE URINE NEGATIVE (NEGATIVE)
[2023-12-22 22:58] LABS: ETHYL ALCOHOL (ETHANOL) < 0.003 % (0.000-0.010)
[2023-12-22 23:00] LABS: ALBUMIN 3.7 G/DL (3.2-5.2); ALKALINE PHOSPHATASE 63 U/L (46-116); ALT/SGPT 25 U/L (7.0-40); AST/SGOT 16 U/L (<34); BILIRUBIN,DIRECT < 0.1 MG/DL (<0.4); BILIRUBIN,TOTAL 0.2 MG/DL (0.3-1.2); BLOOD UREA NITROGEN 11 MG/DL (9-23); CALCIUM LEVEL 8.8 MG/DL (8.5-10.1); CARBON DIOXIDE LEVEL 26 MMOL/L (20-31); CHLORIDE LEVEL 109 MMOL/L (98-107); CREATININE FOR GFR 0.65 MG/DL (0.55-1.30); GLOMERULAR FILTRATION RATE > 60.0 (>60); GLUCOSE, FASTING 94 MG/DL (60-100); POTASSIUM SERUM 3.7 MMOL/L (3.5-5.1); SALICYLATE LEVEL < 3.0 MG/DL (<30); SODIUM LEVEL 143 MMOL/L (136-145)
[2023-12-22 23:02] LABS: THYROID STIMULATING HORMONE 2.249 uIU/ML (0.55-4.78)
[2023-12-22] MEDS ORDERED: ALBU8.5H PO (23:22)
[2023-12-22] MEDS ORDERED: HOME MED LIST COMPLETE! XX SCH (23:25)
== END 2023-12-23 00:58 | disposition home or self-care (01) ==
LOC: M ED 21:57
DX: F43.0 Acute stress reaction (principal); R45.88 Nonsuicidal self-harm; F60.3 Borderline personality disorder; F17.200 Nicotine dependence, unspecified, uncomplicated; Z79.52 Long term (current) use of systemic steroids; Z79.899 Other long term (current) drug therapy

== ENCOUNTER 2023-12-26 22:04 | Emergency (ER) | payer OTHER ==
[~2023-12-26] VITALS: Ht 170.2 cm; Wt 123.4 kg
[~2023-12-26 22:04] MED LIST changes: +ALBU8.5H PO
[2023-12-27 06:20] VITALS: BP 108/57; TEMP 98.3; O2SAT 100
[2023-12-27] MEDS ORDERED: SIME180C25 PO (06:39)
[2023-12-27] MEDS: SIMETHICONE 80MG CHEW TAB PO ONE (06:42)
== END 2023-12-27 07:07 | disposition home or self-care (01) ==
LOC: M ED 22:04
DX: R14.0 Abdominal distension (gaseous) (principal); J45.909 Unspecified asthma, uncomplicated; F90.9 Attention-deficit hyperactivity disorder, unspecified type; F17.200 Nicotine dependence, unspecified, uncomplicated; F12.10 Cannabis abuse, uncomplicated; F10.10 Alcohol abuse, uncomplicated; Z79.83 Long term (current) use of bisphosphonates; Z79.52 Long term (current) use of systemic steroids; Z79.899 Other long term (current) drug therapy

== ENCOUNTER 2024-01-07 05:45 | Emergency (ER) | payer BC, OTHER ==
[~2024-01-07 05:45] MED LIST changes: +SIME180C25 PO
[2024-01-07] MEDS: ONDANSETRON 4MG ORAL DISINTEGRATING TAB PO ONE (09:06)
[2024-01-07 09:09] VITALS: BP 134/67; TEMP 98.7; O2SAT 100
== END 2024-01-07 09:15 | disposition home or self-care (01) ==
LOC: M ED 05:45
DX: R11.2 Nausea with vomiting, unspecified (principal); Z79.899 Other long term (current) drug therapy

== ENCOUNTER 2024-01-22 20:15 | Emergency (ER) | payer OTHER ==
[2024-01-23 02:38] VITALS: BP 137/69; TEMP 97.6; O2SAT 99
== END 2024-01-23 02:41 | disposition home or self-care (01) ==
LOC: M ED 20:15
DX: M23.92 Unspecified internal derangement of left knee (principal); F90.9 Attention-deficit hyperactivity disorder, unspecified type; F32.A Depression, unspecified; F41.9 Anxiety disorder, unspecified; K21.9 Gastro-esophageal reflux disease without esophagitis; J45.909 Unspecified asthma, uncomplicated; E11.9 Type 2 diabetes mellitus without complications; F17.200 Nicotine dependence, unspecified, uncomplicated; F10.10 Alcohol abuse, uncomplicated; Y92.410 Unspecified street and highway as the place of occurrence of the external cause; Y93.01 Activity, walking, marching and hiking; Y99.9 Unspecified external cause status; Z79.52 Long term (current) use of systemic steroids; Z79.899 Other long term (current) drug therapy

== ENCOUNTER 2024-02-21 02:19 | Emergency (ER) | payer BC, OTHER ==
[~2024-02-21] VITALS: Ht 170.2 cm; Wt 148.0 kg
[2024-02-21 02:28] VITALS: TEMP 98.2
[2024-02-21] MEDS: ONDANSETRON 4MG ORAL DISINTEGRATING TAB PO ONE (09:01)
[2024-02-21] MEDS: ACETAMINOPHEN 500 MG TAB PO ONE (09:02)
[2024-02-21 09:05] VITALS: BP 112/60; O2SAT 99
== END 2024-02-21 09:23 | disposition home or self-care (01) ==
LOC: M ED 02:19 → EDBD 02:19 → M ED 09:23
DX: F10.120 Alcohol abuse with intoxication, uncomplicated (principal); R10.9 Unspecified abdominal pain

== ENCOUNTER 2024-02-23 02:09 | Emergency (ER) | payer BC, OTHER ==
[~2024-02-23] VITALS: Ht 167.6 cm; Wt 118.1 kg
[2024-02-23 09:04] VITALS: BP 124/56; TEMP 98.6; O2SAT 97
== END 2024-02-23 09:25 | disposition home or self-care (01) ==
LOC: M ED 02:09
DX: F51.01 Primary insomnia (principal); J45.909 Unspecified asthma, uncomplicated; K21.9 Gastro-esophageal reflux disease without esophagitis; F41.9 Anxiety disorder, unspecified; F32.A Depression, unspecified; F90.9 Attention-deficit hyperactivity disorder, unspecified type; F17.200 Nicotine dependence, unspecified, uncomplicated; F10.10 Alcohol abuse, uncomplicated; F12.10 Cannabis abuse, uncomplicated; Z79.1 Long term (current) use of non-steroidal anti-inflammatories (NSAID)

== ENCOUNTER 2024-02-24 17:39 | Emergency (ER) | payer BC, OTHER | END 2024-02-24 18:52 | disposition left against medical advice (07) | LOC: M ED 17:39 → EDBD 17:39 → M ED 18:52 | DX: Z53.21 Procedure and treatment not carried out due to patient leaving prior to being seen by health care provider (principal) ==

== ENCOUNTER 2024-02-27 01:27 | Emergency (ER) | payer BC, OTHER ==
[~2024-02-27] VITALS: Ht 170.2 cm; Wt 118.2 kg
[2024-02-27] MEDS ORDERED: NAPR-837 PO (04:51)
[2024-02-27 05:07] VITALS: BP 132/76; TEMP 98; O2SAT 97
== END 2024-02-27 05:09 | disposition home or self-care (01) ==
LOC: EDBD 01:27 → M ED 01:27
DX: M25.562 Pain in left knee (principal); F17.210 Nicotine dependence, cigarettes, uncomplicated; F12.10 Cannabis abuse, uncomplicated; F10.10 Alcohol abuse, uncomplicated; Z79.899 Other long term (current) drug therapy

== ENCOUNTER 2024-02-27 14:51 | Emergency (ER) | payer BC, OTHER ==
[2024-02-27 15:47] LABS: BASO % 0.2 % (0.0-1.0); EOS # 0.1 10^3/uL (0.0-0.5); HEMATOCRIT 43.7 % (36.0-47.0); HEMOGLOBIN 14.4 g/dl (12.0-15.5); LYMPH # 0.9 10^3/uL (1.5-5.0); LYMPH % 10.7 % (24.0-44.0); MEAN CORPUSCULAR HEMOGLOBIN 27.8 pg (27.0-33.0); MEAN CORPUSCULAR VOLUME 84.4 fl (80.0-96.0); MONO # 0.3 10^3/uL (0.0-0.8); MONO % 3.2 % (2.0-8.0); NEUTROPHILS # 7.1 10^3/uL (1.5-8.5); NEUTROPHILS % 84.5 % (36.0-66.0); PLATELET COUNT, AUTOMATED 351 10^3/uL (150-450); RED BLOOD COUNT 5.18 10^6/uL (4.00-5.40); WHITE BLOOD COUNT 8.4 10^3/uL (4.0-10.0)
[2024-02-27 16:08] LABS: LIPASE 33 U/L (12-53)
[2024-02-27 16:10] LABS: ALKALINE PHOSPHATASE 65 U/L (46-116); ALT/SGPT 22 U/L (7.0-40); AST/SGOT 20 U/L (<34); BILIRUBIN,DIRECT 0.3 MG/DL (<0.4); BILIRUBIN,TOTAL 0.9 MG/DL (0.3-1.2); BLOOD UREA NITROGEN 14 MG/DL (9-23); CALCIUM LEVEL 9.4 MG/DL (8.5-10.1); CARBON DIOXIDE LEVEL 25 MMOL/L (20-31); CHLORIDE LEVEL 103 MMOL/L (98-107); CREATININE FOR GFR 0.73 MG/DL (0.55-1.30); GLOMERULAR FILTRATION RATE > 60.0 (>60); GLUCOSE, FASTING 94 MG/DL (60-100); POTASSIUM SERUM 3.8 MMOL/L (3.5-5.1); SODIUM LEVEL 137 MMOL/L (136-145); TOTAL PROTEIN 7.6 G/DL (5.7-8.2)
[2024-02-27 16:17] LABS: HCG, SERUM QUALITATIVE NEGATIVE (NEGATIVE)
[2024-02-27] MEDS: ONDANSETRON 4MG ORAL DISINTEGRATING TAB PO ONE (17:30)
[2024-02-27 17:48] VITALS: BP 149/78; TEMP 99.9; O2SAT 98
== END 2024-02-27 17:57 | disposition home or self-care (01) ==
LOC: EDBD 14:51 → M ED 14:51
DX: R11.2 Nausea with vomiting, unspecified (principal); F41.9 Anxiety disorder, unspecified; F32.A Depression, unspecified; F10.10 Alcohol abuse, uncomplicated; Z79.1 Long term (current) use of non-steroidal anti-inflammatories (NSAID)

== ENCOUNTER 2024-03-05 01:08 | Emergency (ER) | payer BC, OTHER ==
[~2024-03-05] VITALS: Ht 170.2 cm; Wt 122.2 kg
[2024-03-05] MEDS: ONDANSETRON 4MG ORAL DISINTEGRATING TAB PO ONE (06:27)
[2024-03-05] MEDS ORDERED: ONDA4TAB6 PO (06:51)
[2024-03-05] MEDS ORDERED: AMOX500C PO (06:51)
[2024-03-05] MEDS: AMOXICILLIN 500 MG CAP PO ONE (07:00)
[2024-03-05 07:07] VITALS: BP 135/74; TEMP 98.1; O2SAT 98
== END 2024-03-05 07:14 | disposition home or self-care (01) ==
LOC: EDBD 01:08 → M ED 01:08
DX: J02.0 Streptococcal pharyngitis (principal); F12.10 Cannabis abuse, uncomplicated; F41.9 Anxiety disorder, unspecified; F90.9 Attention-deficit hyperactivity disorder, unspecified type; Z79.2 Long term (current) use of antibiotics; Z79.899 Other long term (current) drug therapy

== ENCOUNTER 2024-03-07 23:55 | Emergency (ER) | payer BC, OTHER ==
[~2024-03-07] VITALS: Ht 172.7 cm; Wt 98.2 kg
[~2024-03-07 23:55] MED LIST changes: +AMOX500C PO
[2024-03-08] MEDS: IBUPROFEN 600MG TAB PO ONE (07:29)
[2024-03-08] MEDS ORDERED: ACET-907 PO (07:34)
[2024-03-08 08:06] VITALS: BP 130/82; TEMP 97.8; O2SAT 100
== END 2024-03-08 08:39 | disposition home or self-care (01) ==
LOC: M ED 23:55
DX: S83.92XA Sprain of unspecified site of left knee, initial encounter (principal); W19.XXXA Unspecified fall, initial encounter; J45.909 Unspecified asthma, uncomplicated; K21.9 Gastro-esophageal reflux disease without esophagitis; F41.9 Anxiety disorder, unspecified; F10.10 Alcohol abuse, uncomplicated; F17.200 Nicotine dependence, unspecified, uncomplicated; Z79.1 Long term (current) use of non-steroidal anti-inflammatories (NSAID); Z79.899 Other long term (current) drug therapy; Y92.9 Unspecified place or not applicable; Y93.9 Activity, unspecified; Y99.9 Unspecified external cause status

== ENCOUNTER 2024-03-12 18:55 | Emergency (ER) | payer BC, OTHER ==
[~2024-03-12] VITALS: Ht 170.2 cm; Wt 122.6 kg
[~2024-03-12 18:55] MED LIST changes: +ACET-907 PO
[2024-03-12 18:57] VITALS: BP 134/63; TEMP 97.1; O2SAT 98
[2024-03-12] MEDS: ACETAMINOPHEN 500 MG TAB PO ONE (20:24)
[2024-03-12] MEDS ORDERED: ACET-683 PO (21:58)
== END 2024-03-12 22:28 | disposition left against medical advice (07) ==
LOC: M ED 18:55
DX: S69.91XA Unspecified injury of right wrist, hand and finger(s), initial encounter (principal); Z53.9 Procedure and treatment not carried out, unspecified reason; W01.0XXA Fall on same level from slipping, tripping and stumbling without subsequent striking against object, initial encounter; Y92.39 Other specified sports and athletic area as the place of occurrence of the external cause; Y93.89 Activity, other specified; Y99.9 Unspecified external cause status; F17.290 Nicotine dependence, other tobacco product, uncomplicated

== ENCOUNTER 2024-03-15 02:21 | Emergency (ER) | payer BC, OTHER ==
[~2024-03-15] VITALS: Ht 170.2 cm; Wt 121.4 kg
[~2024-03-15 02:21] MED LIST changes: +ACET-683 PO
[2024-03-15 05:46] VITALS: BP 142/84; TEMP 98.7; O2SAT 99
== END 2024-03-15 06:50 | disposition home or self-care (01) ==
LOC: M ED 02:21
DX: R11.10 Vomiting, unspecified (principal); F17.200 Nicotine dependence, unspecified, uncomplicated

== ENCOUNTER 2024-03-15 22:32 | Emergency (ER) | payer BC, OTHER ==
[~2024-03-15] VITALS: Ht 170.2 cm; Wt 120.5 kg
[2024-03-16] MEDS: NAPROXEN 250 MG TAB PO ONE (00:46)
[2024-03-16 01:00] VITALS: BP 135/77; TEMP 98.2; O2SAT 96
== END 2024-03-16 01:02 | disposition home or self-care (01) ==
LOC: M ED 22:32
DX: G89.29 Other chronic pain (principal); M25.562 Pain in left knee; F17.200 Nicotine dependence, unspecified, uncomplicated

== ENCOUNTER 2024-03-24 03:14 | Emergency (ER) | payer BC, OTHER ==
[~2024-03-24 03:14] MED LIST changes: +ONDA-282 PO; -ONDA4TAB6 PO
[2024-03-24 04:09] LABS: BASO % 0.4 % (0.0-1.0); EOS # 0.1 10^3/uL (0.0-0.5); EOS % 0.6 % (0.0-3.0); HEMATOCRIT 36.6 % (36.0-47.0); LYMPH # 3.3 10^3/uL (1.5-5.0); LYMPH % 38.8 % (24.0-44.0); MEAN CORPUSCULAR HEMOGLOBIN 27.4 pg (27.0-33.0); MEAN CORPUSCULAR HGB CONC 32.8 g/dl (32.0-36.5); MEAN CORPUSCULAR VOLUME 83.6 fl (80.0-96.0); MONO # 0.4 10^3/uL (0.0-0.8); NEUTROPHILS # 4.7 10^3/uL (1.5-8.5); NEUTROPHILS % 54.8 % (36.0-66.0); PLATELET COUNT, AUTOMATED 302 10^3/uL (150-450); RED BLOOD COUNT 4.38 10^6/uL (4.00-5.40); WHITE BLOOD COUNT 8.5 10^3/uL (4.0-10.0)
[2024-03-24 04:27] LABS: AMPHETAMINES LEVEL URINE NEGATIVE (NEGATIVE); BARBITURATES URINE NEGATIVE (NEGATIVE); BENZODIAZEPINES URINE NEGATIVE (NEGATIVE)
[2024-03-24 04:28] LABS: CANNABINOIDS URINE NEGATIVE (NEGATIVE); COCAINE METABOLITE URINE NEGATIVE (NEGATIVE); METHADONE URINE NEGATIVE (NEGATIVE); OPIATES URINE NEGATIVE (NEGATIVE); PHENCYCLIDINE URINE NEGATIVE (NEGATIVE)
[2024-03-24 04:29] LABS: ETHYL ALCOHOL (ETHANOL) < 0.003 % (0.000-0.010)
[2024-03-24 04:31] LABS: SALICYLATE LEVEL < 3.0 MG/DL (<30)
[2024-03-24 04:32] LABS: ALBUMIN 3.5 G/DL (3.2-5.2); ALKALINE PHOSPHATASE 56 U/L (46-116); ALT/SGPT 25 U/L (7.0-40); AST/SGOT 25 U/L (<34); BILIRUBIN,DIRECT 0.1 MG/DL (<0.4); BILIRUBIN,TOTAL 0.4 MG/DL (0.3-1.2); BLOOD UREA NITROGEN 13 MG/DL (9-23); CALCIUM LEVEL 9.3 MG/DL (8.5-10.1); CARBON DIOXIDE LEVEL 25 MMOL/L (20-31); CHLORIDE LEVEL 107 MMOL/L (98-107); CREATININE FOR GFR 0.74 MG/DL (0.55-1.30); GLOMERULAR FILTRATION RATE > 60.0 (>60); GLUCOSE, FASTING 94 MG/DL (60-100); POTASSIUM SERUM 3.4 MMOL/L (3.5-5.1); SODIUM LEVEL 139 MMOL/L (136-145); TOTAL PROTEIN 6.4 G/DL (5.7-8.2)
[2024-03-24 04:34] LABS: THYROID STIMULATING HORMONE 1.767 uIU/ML (0.55-4.78)
[2024-03-24 04:37] LABS: HCG, SERUM QUALITATIVE NEGATIVE (NEGATIVE)
[2024-03-24 04:39] LABS: CPK CREATINE PHOSPHOKINASE 454 U/L (34-145)
[2024-03-24] MEDS: NS 1,000 ML IV ONE (07:45)
[2024-03-24 08:12] VITALS: BP 119/69; TEMP 97.1; O2SAT 99
[2024-03-24] MEDS: LORazepam 1 MG TAB PO STA (12:44)
[2024-03-24] MEDS ORDERED: HOME MED LIST COMPLETE! XX SCH (13:45)
== END 2024-03-24 15:55 | disposition home or self-care (01) ==
LOC: M ED 03:14
DX: Z76.5 Malingerer [conscious simulation] (principal); F60.3 Borderline personality disorder; F31.9 Bipolar disorder, unspecified; F10.10 Alcohol abuse, uncomplicated

== ENCOUNTER 2024-03-26 02:21 | Emergency (ER) | payer BC, OTHER ==
[~2024-03-26] VITALS: Ht 170.2 cm; Wt 122.7 kg
[2024-03-26 03:07] LABS: HEMATOCRIT 40.8 % (36.0-47.0); HEMOGLOBIN 13.2 g/dl (12.0-15.5); MEAN CORPUSCULAR HEMOGLOBIN 27.4 pg (27.0-33.0); MEAN CORPUSCULAR HGB CONC 32.4 g/dl (32.0-36.5); MEAN CORPUSCULAR VOLUME 84.6 fl (80.0-96.0); PLATELET COUNT, AUTOMATED 350 10^3/uL (150-450); RED BLOOD COUNT 4.82 10^6/uL (4.00-5.40); WHITE BLOOD COUNT 9.7 10^3/uL (4.0-10.0)
[2024-03-26 03:28] LABS: ETHYL ALCOHOL (ETHANOL) < 0.003 % (0.000-0.010)
[2024-03-26 03:30] LABS: SALICYLATE LEVEL < 3.0 MG/DL (<30)
[2024-03-26 03:53] LABS: THYROID STIMULATING HORMONE 2.389 uIU/ML (0.55-4.78)
[2024-03-26 03:54] LABS: ALBUMIN 3.8 G/DL (3.2-5.2); ALKALINE PHOSPHATASE 62 U/L (46-116); ALT/SGPT 26 U/L (7.0-40); AST/SGOT 25 U/L (<34); BILIRUBIN,DIRECT 0.2 MG/DL (<0.4); BILIRUBIN,TOTAL 0.5 MG/DL (0.3-1.2); BLOOD UREA NITROGEN 14 MG/DL (9-23); CALCIUM LEVEL 9.2 MG/DL (8.5-10.1); CARBON DIOXIDE LEVEL 21 MMOL/L (20-31); CHLORIDE LEVEL 107 MMOL/L (98-107); GLOMERULAR FILTRATION RATE > 60.0 (>60); GLUCOSE, FASTING 100 MG/DL (60-100); POTASSIUM SERUM 3.9 MMOL/L (3.5-5.1); SODIUM LEVEL 138 MMOL/L (136-145)
[2024-03-26 09:28] LABS: AMPHETAMINES LEVEL URINE NEGATIVE (NEGATIVE); BARBITURATES URINE NEGATIVE (NEGATIVE); BENZODIAZEPINES URINE NEGATIVE (NEGATIVE); CANNABINOIDS URINE NEGATIVE (NEGATIVE); COCAINE METABOLITE URINE NEGATIVE (NEGATIVE); METHADONE URINE NEGATIVE (NEGATIVE); OPIATES URINE NEGATIVE (NEGATIVE); PHENCYCLIDINE URINE NEGATIVE (NEGATIVE)
[2024-03-26] MEDS: LORazepam 1 MG TAB PO STA (13:19)
[2024-03-26] MEDS ORDERED: HOME MED LIST COMPLETE! XX SCH (19:00)
[2024-03-26] MEDS: traZODone 50 MG TAB PO ONE (23:47)
[2024-03-26] MEDS: NICOTINE POLACRILEX 2 MG GUM PO ONE (23:47)
[2024-03-27 00:12] LABS: APPEARANCE, URINE CLEAR (CLEAR); BACTERIA, URINE AUTO NEGATIVE (NEGATIVE); BILIRUBIN, URINE AUTO NEGATIVE (NEGATIVE); BLOOD, URINE BLOOD NEGATIVE (NEGATIVE); COLOR, URINE YELLOW (YELLOW); GLUCOSE, URINE (UA) AUTO NEGATIVE (NEGATIVE); KETONE, URINE AUTO NEGATIVE (NEGATIVE); LEUKOCYTE ESTERASE, URINE AUTO TRACE (NEGATIVE); MUCUS, URINE SMALL (NEGATIVE); NITRITE, URINE AUTO NEGATIVE (NEGATIVE); PROTEIN, URINE AUTO NEGATIVE (NEGATIVE); RBC, URINE AUTO 0 /HPF (0-3); SPECIFIC GRAVITY URINE AUTO 1.028 (1.002-1.035); SQUAMOUS EPITHELIAL CELL UR AU 1 /HPF (0-6); WBC, URINE AUTO 6 /HPF (0-3)
[2024-03-27] MEDS: hydrOXYzine 50 MG TAB PO ONE (08:56)
[2024-03-27 14:16] VITALS: BP 127/80; TEMP 98; O2SAT 100
== END 2024-03-27 14:18 ==
LOC: M ED 02:21
DX: R45.851 Suicidal ideations (principal); F32.A Depression, unspecified; I49.49 Other premature depolarization; F90.9 Attention-deficit hyperactivity disorder, unspecified type; F41.9 Anxiety disorder, unspecified

== ENCOUNTER 2024-03-29 00:04 | Emergency (ER) | payer BC, OTHER ==
[~2024-03-29] VITALS: Ht 170.2 cm; Wt 123.0 kg
[2024-03-29 00:41] VITALS: BP 114/59; TEMP 97.6; O2SAT 99
[2024-03-30] MEDS ORDERED: AMOX875T2 PO (07:31)
[2024-03-30] MEDS ORDERED: PRED20TA PO (07:39)
[2024-03-30] MEDS ORDERED: VENTAER INH (07:39)
== END 2024-03-29 05:51 | disposition home or self-care (01) ==
LOC: M ED 00:04
DX: Z59.00 Homelessness unspecified (principal); F32.A Depression, unspecified; F41.9 Anxiety disorder, unspecified; F90.9 Attention-deficit hyperactivity disorder, unspecified type; F60.3 Borderline personality disorder

== ENCOUNTER 2024-03-30 04:35 | Emergency (ER) | payer BC, OTHER ==
[~2024-03-30] VITALS: Ht 170.2 cm; Wt 123.1 kg
[2024-03-30] MEDS: IPRATROPIUM 0.5MG/ALBUTEROL 2.5MG INH SOL UD 3ML (DUONEB) NEB PRN (06:53)
[2024-03-30] MEDS ORDERED: AMOX875T2 PO (07:31)
[2024-03-30] MEDS ORDERED: PRED20TA PO (07:39)
[2024-03-30] MEDS ORDERED: VENTAER INH (07:39)
[2024-03-30 07:47] VITALS: BP 114/55; TEMP 96.5; O2SAT 100
== END 2024-03-30 07:53 | disposition home or self-care (01) ==
LOC: M ED 04:35
DX: J45.901 Unspecified asthma with (acute) exacerbation (principal); F17.290 Nicotine dependence, other tobacco product, uncomplicated

== ENCOUNTER 2024-04-05 04:14 | Emergency (ER) | payer BC, OTHER ==
[~2024-04-05] VITALS: Ht 170.2 cm; Wt 120.2 kg
[~2024-04-05 04:14] MED LIST changes: +PRED20TA PO
[2024-04-05] MEDS: ACETAMINOPHEN 500 MG TAB PO ONE (07:07)
[2024-04-05 07:21] VITALS: BP 107/57; TEMP 98.8; O2SAT 99
== END 2024-04-05 07:23 | disposition home or self-care (01) ==
LOC: M ED 04:14
DX: R07.0 Pain in throat (principal); J45.909 Unspecified asthma, uncomplicated; K21.9 Gastro-esophageal reflux disease without esophagitis; F90.9 Attention-deficit hyperactivity disorder, unspecified type; F17.290 Nicotine dependence, other tobacco product, uncomplicated; Z79.899 Other long term (current) drug therapy

== ENCOUNTER 2024-04-07 23:37 | Emergency (ER) | payer BC, OTHER ==
[~2024-04-07] VITALS: Ht 167.6 cm; Wt 116.8 kg
[2024-04-08 07:38] VITALS: BP 120/55; TEMP 97.1; O2SAT 100
== END 2024-04-08 07:43 | disposition home or self-care (01) ==
LOC: M ED 23:37
DX: Z00.00 Encounter for general adult medical examination without abnormal findings (principal); Y04.8XXA Assault by other bodily force, initial encounter; Y92.9 Unspecified place or not applicable; Y93.9 Activity, unspecified; Y99.9 Unspecified external cause status; J45.909 Unspecified asthma, uncomplicated; K21.9 Gastro-esophageal reflux disease without esophagitis; F90.9 Attention-deficit hyperactivity disorder, unspecified type; R73.03 Prediabetes; F41.9 Anxiety disorder, unspecified; F32.A Depression, unspecified

== ENCOUNTER 2024-04-10 02:41 | Emergency (ER) | payer BC, OTHER ==
[~2024-04-10] VITALS: Ht 170.2 cm; Wt 121.3 kg
[2024-04-10] MEDS: ONDANSETRON 4MG ORAL DISINTEGRATING TAB PO ONE (08:02)
[2024-04-10 08:10] LABS: URINE PREG TEST NEGATIVE (NEGATIVE)
[2024-04-10 08:11] LABS: APPEARANCE, URINE CLEAR (CLEAR); BACTERIA, URINE AUTO NEGATIVE (NEGATIVE); BILIRUBIN, URINE AUTO NEGATIVE (NEGATIVE); BLOOD, URINE BLOOD 1+ (NEGATIVE); COLOR, URINE YELLOW (YELLOW); GLUCOSE, URINE (UA) AUTO NEGATIVE (NEGATIVE); KETONE, URINE AUTO NEGATIVE (NEGATIVE); LEUKOCYTE ESTERASE, URINE AUTO NEGATIVE (NEGATIVE); MUCUS, URINE SMALL (NEGATIVE); NITRITE, URINE AUTO NEGATIVE (NEGATIVE); PROTEIN, URINE AUTO NEGATIVE (NEGATIVE); RBC, URINE AUTO 0 /HPF (0-3); SPECIFIC GRAVITY URINE AUTO 1.021 (1.002-1.035); SQUAMOUS EPITHELIAL CELL UR AU 0 /HPF (0-6); WBC, URINE AUTO 0 /HPF (0-3)
[2024-04-10 09:33] VITALS: BP 110/56; TEMP 97.6; O2SAT 100
== END 2024-04-10 10:47 | disposition home or self-care (01) ==
LOC: M ED 02:41
DX: R11.2 Nausea with vomiting, unspecified (principal)

== ENCOUNTER 2024-04-12 22:28 | Emergency (ER) | payer BC, OTHER ==
[~2024-04-12] VITALS: Ht 170.2 cm; Wt 121.3 kg
[2024-04-13 04:45] LABS: Trichomonas vaginalis (AMP) NOT DETECTED (NEGATIVE)
[2024-04-13 05:09] LABS: GC DNA AMPLIFICATION NEGATIVE (NEGATIVE)
[2024-04-13] MEDS ORDERED: PYRI1TAB5 PO (06:18)
[2024-04-13 07:21] VITALS: BP 154/104; TEMP 97.2; O2SAT 100
== END 2024-04-13 07:28 | disposition home or self-care (01) ==
LOC: M ED 22:28
DX: R30.0 Dysuria (principal); F17.200 Nicotine dependence, unspecified, uncomplicated; Z79.899 Other long term (current) drug therapy

== ENCOUNTER 2024-04-15 03:40 | Emergency (ER) | payer BC, OTHER ==
[~2024-04-15] VITALS: Ht 170.2 cm; Wt 117.9 kg
[~2024-04-15 03:40] MED LIST changes: +PYRI1TAB5 PO
[2024-04-15 04:14] LABS: HEMATOCRIT 39.6 % (36.0-47.0); HEMOGLOBIN 12.8 g/dl (12.0-15.5); MEAN CORPUSCULAR HEMOGLOBIN 27.6 pg (27.0-33.0); MEAN CORPUSCULAR HGB CONC 32.3 g/dl (32.0-36.5); MEAN CORPUSCULAR VOLUME 85.5 fl (80.0-96.0); PLATELET COUNT, AUTOMATED 354 10^3/uL (150-450); RED BLOOD COUNT 4.63 10^6/uL (4.00-5.40); WHITE BLOOD COUNT 8.3 10^3/uL (4.0-10.0)
[2024-04-15 04:38] LABS: ETHYL ALCOHOL (ETHANOL) 0.005 % (0.000-0.010)
[2024-04-15 04:40] LABS: ALBUMIN 3.6 G/DL (3.2-5.2); ALKALINE PHOSPHATASE 58 U/L (46-116); ALT/SGPT 25 U/L (7.0-40); AST/SGOT 18 U/L (<34); BILIRUBIN,DIRECT 0.1 MG/DL (<0.4); BILIRUBIN,TOTAL 0.3 MG/DL (0.3-1.2); BLOOD UREA NITROGEN 8 MG/DL (9-23); CALCIUM LEVEL 9.3 MG/DL (8.5-10.1); CARBON DIOXIDE LEVEL 27 MMOL/L (20-31); CHLORIDE LEVEL 110 MMOL/L (98-107); CREATININE FOR GFR 0.69 MG/DL (0.55-1.30); GLOMERULAR FILTRATION RATE > 60.0 (>60); GLUCOSE, FASTING 104 MG/DL (60-100); POTASSIUM SERUM 4.1 MMOL/L (3.5-5.1); SALICYLATE LEVEL < 3.0 MG/DL (<30); SODIUM LEVEL 142 MMOL/L (136-145); TOTAL PROTEIN 6.7 G/DL (5.7-8.2)
[2024-04-15 04:42] LABS: THYROID STIMULATING HORMONE 3.008 uIU/ML (0.55-4.78)
[2024-04-15 10:38] VITALS: BP 122/68; TEMP 97.7; O2SAT 99
== END 2024-04-15 10:43 | disposition home or self-care (01) ==
LOC: M ED 03:40
DX: F60.3 Borderline personality disorder (principal); Z76.5 Malingerer [conscious simulation]; F32.A Depression, unspecified; E66.01 Morbid (severe) obesity due to excess calories; Z79.899 Other long term (current) drug therapy

== ENCOUNTER 2024-04-19 14:30 | Emergency (ER) | payer BC, OTHER ==
[~2024-04-19] VITALS: Ht 170.2 cm; Wt 118.2 kg
[2024-04-19 14:43] VITALS: TEMP 98.1
[2024-04-19 15:15] VITALS: BP 103/55; O2SAT 98
== END 2024-04-19 15:52 | disposition home or self-care (01) ==
LOC: EDBD 14:30 → M ED 14:30
DX: G24.02 Drug induced acute dystonia (principal); T43.4X5A Adverse effect of butyrophenone and thiothixene neuroleptics, initial encounter; M25.562 Pain in left knee; J45.909 Unspecified asthma, uncomplicated; F32.9 Major depressive disorder, single episode, unspecified; F41.9 Anxiety disorder, unspecified; F17.290 Nicotine dependence, other tobacco product, uncomplicated; Z79.899 Other long term (current) drug therapy

== ENCOUNTER 2024-04-22 19:22 | Emergency (ER) | payer BC, OTHER ==
[~2024-04-22] VITALS: Ht 170.2 cm; Wt 128.0 kg
[2024-04-22 19:34] VITALS: TEMP 98.7
[2024-04-22] MEDS: NS 1,000 ML IV ONE (20:18)
[2024-04-22 20:24] LABS: VENOUS BASE EXCESS -1.3 (-2.0-2.0); VENOUS HCO3 24.9 MMOL/L (23.0-27.0); VENOUS O2 SATURATION 72.3 % (60.0-80.0); VENOUS PARTIAL PRESSURE CO2 47.5 mmHg (38.0-50.0); VENOUS PH 7.338 UNITS (7.330-7.430); VENOUS STANDARD HCO3 22.9 MMOL/L; VENOUS TOTAL CO2 26.4 MMOL/L (24.0-28.0)
[2024-04-22 20:31] LABS: BASO % 0.3 % (0.0-1.0); EOS # 0.1 10^3/uL (0.0-0.5); EOS % 1.2 % (0.0-3.0); HEMATOCRIT 38.1 % (36.0-47.0); HEMOGLOBIN 12.2 g/dl (12.0-15.5); LYMPH # 2.4 10^3/uL (1.5-5.0); LYMPH % 33.4 % (24.0-44.0); MEAN CORPUSCULAR VOLUME 87.4 fl (80.0-96.0); MONO # 0.3 10^3/uL (0.0-0.8); MONO % 4.5 % (2.0-8.0); NEUTROPHILS # 4.4 10^3/uL (1.5-8.5); NEUTROPHILS % 60.3 % (36.0-66.0); PLATELET COUNT, AUTOMATED 283 10^3/uL (150-450); RED BLOOD COUNT 4.36 10^6/uL (4.00-5.40); WHITE BLOOD COUNT 7.3 10^3/uL (4.0-10.0)
[2024-04-22 20:55] LABS: ETHYL ALCOHOL (ETHANOL) < 0.003 % (0.000-0.010)
[2024-04-22 20:56] LABS: SALICYLATE LEVEL < 3.0 MG/DL (<30)
[2024-04-22 20:57] LABS: ALBUMIN 3.3 G/DL (3.2-5.2); ALKALINE PHOSPHATASE 58 U/L (46-116); ALT/SGPT 22 U/L (7.0-40); AST/SGOT 14 U/L (<34); BILIRUBIN,DIRECT < 0.1 MG/DL (<0.4); BILIRUBIN,TOTAL 0.3 MG/DL (0.3-1.2); BLOOD UREA NITROGEN 10 MG/DL (9-23); CALCIUM LEVEL 8.7 MG/DL (8.5-10.1); CARBON DIOXIDE LEVEL 28 MMOL/L (20-31); CHLORIDE LEVEL 109 MMOL/L (98-107); CPK CREATINE PHOSPHOKINASE 114 U/L (34-145); CREATININE FOR GFR 0.74 MG/DL (0.55-1.30); GLOMERULAR FILTRATION RATE > 60.0 (>60); GLUCOSE, FASTING 94 MG/DL (60-100); POTASSIUM SERUM 3.8 MMOL/L (3.5-5.1); SODIUM LEVEL 141 MMOL/L (136-145)
[2024-04-22 20:58] LABS: THYROID STIMULATING HORMONE 1.279 uIU/ML (0.55-4.78)
[2024-04-22 23:48] VITALS: BP 119/63; O2SAT 99
[2024-04-23 01:23] LABS: AMPHETAMINES LEVEL URINE NEGATIVE (NEGATIVE); BARBITURATES URINE NEGATIVE (NEGATIVE); BENZODIAZEPINES URINE NEGATIVE (NEGATIVE); CANNABINOIDS URINE NEGATIVE (NEGATIVE); COCAINE METABOLITE URINE NEGATIVE (NEGATIVE); METHADONE URINE NEGATIVE (NEGATIVE); OPIATES URINE NEGATIVE (NEGATIVE); PHENCYCLIDINE URINE NEGATIVE (NEGATIVE)
== END 2024-04-23 01:20 | disposition home or self-care (01) ==
LOC: M ED 19:22
DX: F19.10 Other psychoactive substance abuse, uncomplicated (principal); K21.9 Gastro-esophageal reflux disease without esophagitis; F17.200 Nicotine dependence, unspecified, uncomplicated; Z79.899 Other long term (current) drug therapy

== ENCOUNTER 2024-05-11 06:08 | Emergency (ER) | payer BC, OTHER ==
[~2024-05-11] VITALS: Ht 170.2 cm; Wt 121.4 kg
[2024-05-11 09:42] VITALS: BP 120/71; TEMP 99.9; O2SAT 99
== END 2024-05-11 09:51 | disposition left against medical advice (07) ==
LOC: M ED 06:08
DX: Z53.21 Procedure and treatment not carried out due to patient leaving prior to being seen by health care provider (principal)

== ENCOUNTER 2024-07-08 14:30 | Emergency (ER) | payer BC, OTHER ==
[~2024-07-08] VITALS: Ht 170.2 cm; Wt 115.9 kg
[2024-07-08] MEDS ORDERED: IBUP-1022 PO (17:50)
[2024-07-08] MEDS: IBUPROFEN 600MG TAB PO ONE (18:13)
[2024-07-08 18:14] VITALS: BP 121/59; TEMP 97.6; O2SAT 100
== END 2024-07-08 18:18 | disposition home or self-care (01) ==
LOC: M ED 14:30
DX: S60.221A Contusion of right hand, initial encounter (principal); W19.XXXA Unspecified fall, initial encounter; Y92.149 Unspecified place in prison as the place of occurrence of the external cause; Y93.9 Activity, unspecified; Y99.9 Unspecified external cause status; E11.9 Type 2 diabetes mellitus without complications; J45.909 Unspecified asthma, uncomplicated; F90.9 Attention-deficit hyperactivity disorder, unspecified type; F60.3 Borderline personality disorder; Z79.899 Other long term (current) drug therapy

== ENCOUNTER → 2024-10-03 | Outpatient (CLI) | payer OTHER ==
[~2024-10-03] MED LIST changes: -SIME180C25 PO; +SIME1CAP4 PO; -ZIPR40CA11 PO; +ZIPR40CA21 PO
== END ==
LOC: M RAD 08:23
PROVIDERS: ATTEND Internal Medicine Addiction Medicine
DX: R10.11 Right upper quadrant pain (principal)

== ENCOUNTER 2025-02-02 23:32 | Emergency (ER) | payer MEDICAID, OTHER ==
[~2025-02-02] VITALS: Ht 167.6 cm; Wt 86.4 kg
[2025-02-03 00:15] LABS: BASO % 0.4 % (0.0-1.0); EOS % 0.3 % (0.0-3.0); HEMATOCRIT 35.5 % (36.0-47.0); HEMOGLOBIN 11.6 g/dl (12.0-15.5); MEAN CORPUSCULAR HEMOGLOBIN 28.1 pg (27.0-33.0); MEAN CORPUSCULAR HGB CONC 32.7 g/dl (32.0-36.5); MONO # 0.3 10^3/uL (0.0-0.8); MONO % 4.4 % (2.0-8.0); NEUTROPHILS # 4.3 10^3/uL (1.5-8.5); NEUTROPHILS % 55.6 % (36.0-66.0); PLATELET COUNT, AUTOMATED 281 10^3/uL (150-450); RED BLOOD COUNT 4.13 10^6/uL (4.00-5.40); WHITE BLOOD COUNT 7.7 10^3/uL (4.0-10.0)
[2025-02-03 00:38] LABS: ALBUMIN 3.5 G/DL (3.2-5.2); ALKALINE PHOSPHATASE 43 U/L (35-104); ALT/SGPT 23 U/L (7.0-40); AST/SGOT 17 U/L (<34); BILIRUBIN,TOTAL 0.4 MG/DL (0.3-1.2); BLOOD UREA NITROGEN 19 MG/DL (9-23); CALCIUM LEVEL 8.9 MG/DL (8.5-10.1); CARBON DIOXIDE LEVEL 27 MMOL/L (20-31); CHLORIDE LEVEL 105 MMOL/L (98-107); CREATININE FOR GFR 0.89 MG/DL (0.55-1.30); GLOMERULAR FILTRATION RATE > 90.0 (>60); GLUCOSE, FASTING 80 MG/DL (60-100); HCG, SERUM QUALITATIVE NEGATIVE (NEGATIVE); POTASSIUM SERUM 3.6 MMOL/L (3.5-5.1); SODIUM LEVEL 140 MMOL/L (136-145); TOTAL PROTEIN 6.5 G/DL (5.7-8.2)
[2025-02-03 03:30] VITALS: BP 93/60
[2025-02-03 03:46] VITALS: TEMP 96.8; O2SAT 98
[2025-02-03 04:46] LABS: IRON (FE) 49 UG/DL (50-170)
== END 2025-02-03 03:48 | disposition home or self-care (01) ==
LOC: M ED 23:32 → EDBD 23:32 → M ED 02-03 03:48
DX: R42 Dizziness and giddiness (principal); F20.9 Schizophrenia, unspecified; F41.9 Anxiety disorder, unspecified; F32.A Depression, unspecified; F17.200 Nicotine dependence, unspecified, uncomplicated; Z79.899 Other long term (current) drug therapy; Z88.8 Allergy status to other drugs, medicaments and biological substances

== ENCOUNTER 2025-02-08 02:11 | Emergency (ER) | payer SELFPAY, MEDICAID ==
[~2025-02-08] VITALS: Ht 167.6 cm; Wt 89.9 kg
[~2025-02-08 02:11] MED LIST changes: +LAMO-18 PO; -LAMO25TA4 PO; +METF-1113 PO; -METF-723 PO
[2025-02-08 07:04] LABS: KETONE, URINE AUTO RFX TRACE mg/dL (NEGATIVE); LEUKOCYTE ESTERASE UR AUTO RFX NEGATIVE (NEGATIVE); MUCUS, URINE RFX LARGE (NEGATIVE); NITRITE, URINE AUTO RFX NEGATIVE (NEGATIVE); RBC, URINE AUTO RFX 0 /HPF (0-3); SQUAM EPITHELIAL CELL UR AURFX 3 /HPF (0-6); WBC, URINE AUTO RFX 1 /HPF (0-3)
[2025-02-08 09:01] VITALS: BP 107/64; TEMP 96.8; O2SAT 100
== END 2025-02-08 09:17 | disposition home or self-care (01) ==
LOC: M ED 02:11
DX: R80.9 Proteinuria, unspecified (principal); F41.9 Anxiety disorder, unspecified; F90.9 Attention-deficit hyperactivity disorder, unspecified type; J45.909 Unspecified asthma, uncomplicated; K21.9 Gastro-esophageal reflux disease without esophagitis; F60.3 Borderline personality disorder; R73.03 Prediabetes; N93.9 Abnormal uterine and vaginal bleeding, unspecified; F17.200 Nicotine dependence, unspecified, uncomplicated; Z79.899 Other long term (current) drug therapy; Z88.8 Allergy status to other drugs, medicaments and biological substances